=== PATIENT | male | born 1950 | race Caucasian/White ===

== ENCOUNTER 2022-04-30 11:30 | Outpatient (CLI) | payer MEDICARE, SELFPAY ==
--- NOTE | ~2022-04-30 | MR_ITS ---
EXAMINATION: MR lumbar spine wo/w con DATE: 04/30/2022 12:17 INDICATION: Low back pain. Bilateral leg pain. Lumbar stenosis. TECHNIQUE: Magnetic resonance imaging (MRI) of the lumbar spine was performed without and with 19 mL MultiHance intravenous contrast. COMPARISON: None FINDINGS: There is 8 degrees dextrocurvature of thoracolumbar spine. There is 3 mm anterolisthesis of L3 on L4 an 8 mm anterolisthesis of L4 on L5. There are Schmorl's nodes at T10-T11 and T11-T12. Ther e is mildly decreased disc height at L2-L3, L3-L4, and L4-L5. There is mildly decreased disc height a t L5-S1 with interbody fusion. There is ligamentum flavum hypertrophy at the disc levels at L1-L2 and L2-L3. The distal spinal cord signal intensity is normal. The conus medullaris is at L2. The followi ng disc levels are specifically discussed: L1-L2: The disc does not extend beyond the endplate margin. There is severe right and moderate left f acet joint osteoarthritis. There is a 5 mm synovial cyst on the right. There is no neural foraminal s tenosis. There is no central canal stenosis at the midline. There is mild stenosis of right lateral r ecess. L2-L3: The disc is bulging and has an annular fissure. There is severe bilateral facet joint osteoart hritis. There is moderate right and mild left neural foraminal stenosis. There is severe central ernesto l stenosis. There is epidural enhancement, consistent with inflammation. L3-L4: The disc is bulging. There is severe bilateral facet joint osteoarthritis. There is mild bilat eral neural foraminal stenosis. There is mild central canal stenosis with posterior decompression. L4-L5: The disc is bulging and has an annular fissure. There is severe bilateral facet joint osteoart hritis. There is moderate bilateral neural foraminal stenosis. There is moderate central canal stenos is with posterior decompression. L5-S1: The disc does not extend beyond the endplate margin. There is severe bilateral facet joint ost eoarthritis. There is moderate bilateral neural foraminal stenosis. There is no central canal stenosi s. IMPRESSION: 1. Severe lumbar spondylosis including severe central canal stenosis at L2-L3 with epidural enhanceme nt suggesting inflammation. Reviewed, dictated and finalized at location A. ADVISOR IMPRESSION: 1. Severe lumbar spondylosis including severe central canal stenosis at L2-L3 w ith epidural enhancement suggesting inflammation.
== END 2022-04-30 11:31 ==
PROVIDERS: PCP Family Medicine; Visit Provider Nurse Practitioner Adult Health
DX: M48.061 Spinal stenosis, lumbar region without neurogenic claudication (principal); M47.896 Other spondylosis, lumbar region
CPT/HCPCS: 72158; A9577

== ENCOUNTER → 2022-06-14 16:04 | Outpatient (CLI) | payer MEDICARE, SELFPAY ==
--- NOTE | ~2022-06-14 | XR_ITS ---
EXAMINATION: XR cervical spine min 6V DATE: 06/14/2022 16:54 INDICATION: Cervical myelopathy. TECHNIQUE: 5 views of cervical spine including flexion and extension views were obtained. COMPARISON: None. FINDINGS: There is 2 mm retrolisthesis of C3 on C4 in extension that reduces with flexion. There is i nterbody fusion from C4 to C7 with anterior plate and screws from C4 to C6. There is mild chronic ant erior wedging of C3 vertebral body. There is severely decreased disc height at C3-C4. C7-T1 is poorly visualized. Central spinal canal is developmentally small from C4 to C7. There is multilevel mild fa cet joint hypertrophy. There is mild central canal stenosis at C3-C4, C4-C5, C5-C6, and C6-C7. No pre vertebral soft tissue swelling. IMPRESSION: 1. Severe cervical spondylosis. 2. Anterior fusion from C4 to C7. Reviewed, dictated and finalized at location A.
--- NOTE | ~2022-06-14 | MR_ITS ---
EXAMINATION: MR cervical spine wo con DATE: 06/14/2022 16:45 INDICATION: Cervical myelopathy. Neck pain. Left arm tingling. TECHNIQUE: Magnetic resonance imaging (MRI) of the cervical spine was performed without intravenous c ontrast. COMPARISON: Cervical spine radiographs 06/14/2022 FINDINGS: There is 6 degrees levocurvature of cervicothoracic spine. There is 3 mm retrolisthesis of C3 on C4 and 5 mm anterolisthesis of C7 on T1. There is mild chronic anterior wedging of C3 vertebral body. There are changes of anterior fusion procedure from C4 to C7 with healed interbody bone grafts . There is an anterior plate with screws from C4 to C6. There is severely decreased disc height at C3 -C4 and C7-T1. There is volume loss of the spinal cord. There is increased T2-weighted signal intensi ty in the spinal cord from C4 to C7 and at T1-T2, consistent with myelomalacia. The following disc le vels are specifically discussed: C2-C3: There is a central extrusion. There is moderate bilateral uncovertebral joint osteoarthritis. There is severe bilateral facet joint osteoarthritis. There is mild bilateral neural foraminal stenos is. There is no central canal stenosis. C3-C4: The disc is bulging with superimposed central extrusion. There is severe bilateral uncovertebr al joint osteoarthritis. There is severe bilateral facet joint osteoarthritis. There is moderate righ t and severe left neural foraminal stenosis. There is moderate central canal stenosis with ventral an d dorsal indentation of the spinal cord. C4-C5: There is moderate bilateral uncovertebral joint hypertrophy. There is mild bilateral facet harlan nt hypertrophy. There is mild bilateral neural foraminal stenosis. There is mild central canal stenos is. C5-C6: There is severe bilateral uncovertebral joint hypertrophy. There is mild bilateral facet joint osteoarthritis. There is mild right and moderate left neural foraminal stenosis. There is no central canal stenosis. C6-C7: There is severe bilateral uncovertebral joint hypertrophy. There is moderate bilateral facet j oint osteoarthritis. There is moderate bilateral neural foraminal stenosis. There is mild central can al stenosis. C7-T1: The disc is bulging and has an annular fissure. There is severe bilateral uncovertebral joint osteoarthritis. There is severe bilateral facet joint osteoarthritis. There is moderate bilateral gilbert ral foraminal stenosis. There is mild central canal stenosis. T1:T2: There is a central extrusion. There is severe bilateral facet joint osteoarthritis. There is m ild bilateral neural foraminal stenosis. There is mild central canal stenosis with ventral indentatio n of the spinal cord and increased signal in the cord. IMPRESSION: 1. Severe cervical spondylosis. 2. Anterior fusion procedure from C4 to C7. 3. Cervical myelomalacia. 4. Spondylosis at T1-T2 with myelomalacia. Reviewed, dictated and finalized at location A.
== END ==
PROVIDERS: PCP Family Medicine; Visit Provider Neurological Surgery
DX: G95.9 Disease of spinal cord, unspecified (principal); M47.892 Other spondylosis, cervical region; Z98.1 Arthrodesis status
CPT/HCPCS: 72052; 72141

== ENCOUNTER → 2022-07-09 09:34 | Outpatient (CLI) | payer MEDICARE, SELFPAY ==
--- NOTE | ~2022-07-09 | CT_ITS ---
Noncontrast CT scan of the lumbar spine CLINICAL HISTORY: Lumbar stenosis TECHNIQUE: Axial noncontrast imaging of the lumbar spine was performed. Sagittal and coronal reformat shelley images were constructed. Dose reduction technique was used on this scan by utilizing automated ex posure control and iterative reconstruction technique. The dose-length product (DLP) was 897.78 mGy-c m. Findings: No fracture identified. 3 mm anterolisthesis of L4 over L5 present. At L1-L2, there is moderate facet joint hypertrophy. No definite disc bulge or herniation. No definit e canal stenosis. There is probable mild bilateral neural foraminal narrowing. At L2-L3, there is disc bulge and superior facet arthropathy, with probable moderate central canal st enosis. There is moderate right neural foraminal narrowing and mild left neural foraminal narrowing. At L3-L4, disc bulge and severe facet arthropathy are present, with probable mild to moderate central canal stenosis. There is moderate right neural foraminal narrowing and mild left neural foraminal na rrowing. At L4-L5, disc bulge and severe facet arthropathy result in severe spinal canal stenosis/thecal sac c ompression. There is severe bilateral neural foraminal narrowing. At L5-S1, probable minimal disc bulge present. There is severe facet arthropathy. No kristopher spinal can al stenosis. There is severe bilateral neural foraminal compromise, left worse than right. Paravertebral soft tissues are unremarkable. IMPRESSION: 3 mm anterolisthesis of L4 over L5. Severe degenerative spondylosis throughout the lumbar spine, as detailed above. There is multilevel s pj canal stenosis/thecal sac compression and multilevel neural foraminal narrowing. Findings are w orst at L4-L5. Reviewed, dictated and finalized at location M. IMPRESSION: 3 mm anterolisthesis of L4 over L5. Severe degenerative spondylosis throughout the lumbar spine, as detailed above. There is multilevel spinal canal stenosis/thecal sac compression and multileve l neural foraminal narrowing. Findings are worst at L4-L5.
== END ==
PROVIDERS: PCP Family Medicine; Visit Provider Neurological Surgery
DX: M48.061 Spinal stenosis, lumbar region without neurogenic claudication (principal); M47.896 Other spondylosis, lumbar region
CPT/HCPCS: 72131

== ENCOUNTER 2024-01-09 07:29 | Outpatient (CLI) | payer MEDICARE, SELFPAY ==
--- NOTE | ~2024-01-09 | US_ITS ---
Left lumbar abdominal area ULTRASOUND Ordering provider: AUSTIN Malik History: . R19.00 - Intra-abdominal and pelvic swelling, mass and jsoe... . Comparison: None. FINDINGS/impression: No definite abnormality seen due to shadowing in the area. If still concerned CT is advised. Reviewed, dictated and finalized at location A.
== END 2024-01-09 07:30 | disposition home or self-care (01) ==
PROVIDERS: PCP Family Medicine; Visit Provider Nurse Practitioner Family
DX: R19.00 Intra-abdominal and pelvic swelling, mass and lump, unspecified site (principal)
CPT/HCPCS: 76705

== ENCOUNTER 2024-05-21 13:55 | Outpatient (CLI) | payer MEDICARE, SELFPAY | END 2024-05-21 13:56 | disposition home or self-care (01) | LOC: MICIMG 13:57 | PROVIDERS: PCP Neurological Surgery; Visit Provider Neurological Surgery | DX: M43.06 Spondylolysis, lumbar region (principal); S32.021A Stable burst fracture of second lumbar vertebra, initial encounter for closed fracture; M41.86 Other forms of scoliosis, lumbar region; Z98.1 Arthrodesis status; X58.XXXA Exposure to other specified factors, initial encounter | CPT/HCPCS: 72131 ==

== ENCOUNTER 2024-05-24 12:33 | Outpatient (CLI) | payer MEDICARE, SELFPAY ==
--- NOTE | ~2024-05-24 | MR_ITS ---
EXAMINATION: MR lumbar spine wo con DATE: 05/24/2024 13:34 INDICATION: Low back pain. TECHNIQUE: Magnetic resonance imaging (MRI) of the lumbar spine was performed without intravenous con trast. COMPARISON: Lumbar spine MRI 04/30/2022 FINDINGS: There is 7 degrees levocurvature of lumbar spine. There is 3 mm anterolisthesis of L2 on L3 and L3 and L4 and 7 mm anterolisthesis of L4 on L5. There is a chronic burst fracture of L2 with 2/5 loss of height. There are changes of anterior fusion procedure at L2-L3 and L5-S1 with interbody dev ices. There is interbody fusion at L5-S1. There are changes of posterior fusion procedure from T10 to L5 with pedicle screws. There is moderately decreased disc height at L1-L2. The distal spinal cord s ignal intensity is normal. The conus medullaris is at T12-L1. The following disc levels are specifica lly discussed: L1-L2: The disc does not extend beyond the endplate margin. There is no facet joint hypertrophy. Ther e is mild bilateral neural foraminal stenosis. There is mild central canal stenosis. L2-L3: There is no facet joint hypertrophy. There is mild right neural foraminal stenosis with editorial intern ior decompression. There is no central canal stenosis. There is posterior decompression. L3-L4: The disc is bulging. There is moderate bilateral facet joint hypertrophy. There is mild bilate ral neural foraminal stenosis. There is mild central canal stenosis. There is posterior decompression . L4-L5: The disc does not extend beyond the endplate margin. There is no facet joint hypertrophy. Ther e is mild bilateral neural foraminal stenosis. There is no central canal stenosis. There is posterior decompression. L5-S1: The disc is bulging. There is severe bilateral facet joint hypertrophy. There is moderate bila teral neural foraminal stenosis. There is no central canal stenosis. IMPRESSION: 1. Moderate lumbar spondylosis. 2. Anterior fusion procedures at L2-L3 and L4-L5. 3. Posterior fusion procedure from T10 to L5. Reviewed, dictated and finalized at location A. RVATIONS SALES AGENT
--- NOTE | ~2024-05-24 | MR_ITS ---
Procedure: MR thoracic spine wo con Ordering provider: Albert Mcmahon MD History: . Low back pain . Comparison: None. Technique: MRI thoracic spine without contrast. FINDINGS: SPINAL CORD: Focal area of myelomalacia is seen in the lower cervical cord. Possibility of syringomye lore is marked excluded in the lower cervical area VERTEBRAL BODIES: Normal height and alignment. No compression fracture. Normal marrow signal. Postope rative changes at the level of T2-T3 and T11-T12. DISK SPACES: Severe narrowing of the disc T7-T8. STENOSIS: Central Disc protrusion at the level of T2-T3 with mild stenosis. Slight thickening of the cord is noted. Myelomalacia cannot be excluded. Diffuse disc bulge at the level of T7-T8 PARASPINOUS SOFT TISSUES: Normal. IMPRESSION: No acute osseous abnormality. Central Disc protrusion at the level of T2 and T3 with mild stenosis. Flattening of the cord is seen in the area. Myelomalacia cannot be excluded. Diffuse disc bulge at the level of T7-T8 with no significant stenosis or narrowing of the foramina. Reviewed, dictated and finalized at location A. DROPPER ASSEMBLER IMPRESSION: No acute osseous abnormality. Central Disc protrusion at the level of T2 and T3 with mild stenosis. Flattenin g of the cord is seen in the area. Myelomalacia cannot be excluded. Diffuse disc bulge at the level of T7-T8 with no significant stenosis or narrow ing of the foramina.
== END 2024-05-24 12:34 | disposition home or self-care (01) ==
PROVIDERS: PCP Neurological Surgery; Visit Provider Neurological Surgery
DX: M43.06 Spondylolysis, lumbar region (principal); M48.04 Spinal stenosis, thoracic region; M51.24 Other intervertebral disc displacement, thoracic region; M51.34 Other intervertebral disc degeneration, thoracic region; Z98.1 Arthrodesis status
CPT/HCPCS: 72146; 72148

== ENCOUNTER 2024-06-06 00:59 | Day surgery (SDC) | payer MEDICARE, SELFPAY ==
[2024-02-06 12:02] VITALS: BMI 25.7
[2024-05-31 15:02] VITALS: BMI 26.6
--- OUTSIDE RECORDS SUMMARY | 2024-06-06 01:04 | XMS_ITS | Encounter Summary ---
Author Organization [facility] Address [address] [place] [id number] Care Team Providers Care Electronic Industrial Controls Mechanic Name Role Phone Jose Zazueta MD Unavailable [phone] Lucas Rivers MD Primary Care Provider [phone] Encounter Details Date Type Department Care Team (Late st Contact Info) Description 04/26/2022 [employer] Message Enc [facility] Medical Group Family & Internal Medicine [facility] [address] [place] [address] [place] [address] [place] [address] Medication Social History Tobacco Use Types Packs/Day Years Used Date Smoking Tobacco: Never Smokeless Tobacco: Never Alcohol Use Standard Drinks/Week Comments Not Currently 0 (1 standard drink = 0.6 oz pur e alcohol) social- beer PHQ-2 Answer Date Recorded PHQ-2 Score - If the patient scores above 3, please move on to questions 3-9 0 06/15/2021 Sex and Gender Information Value Date Recorded Sex Assigned at Male 05/07/2024 1:57 PM DEVELOPMENT TECHNOLOGIST Legal Sex Male 7:06 PM CDT Gender Identity Not on file Sexual Orientation Not on file 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 No / Unsure 04/23/2022 10:22 AM DEVELOPMENT TECHNOLOGIST documented as of this encounter Plan of Treatment Upcoming Encounters Date Type Department Care Team (Late st Contact Info) Description 06/08/2024 7:[address] [facility] [address] [place] [address] [place] [address] [place] [address] [place] [address] [place] [address] 06/12/2024 11:00 AM CDT Appointment [facility] [address] [place] [address] [place] [address] [place] [address] Albert Mcmahon MD [address] [address] 06/19/2024 10:[address] [facility] [address] [place] [address] [place] [address] [place] [address] Albert Mcmahon MD [address] [address] 06/21/2024 9:30 AM CDT Appointment [facility] [address] [place] [address] [place] [address] [place] [address] Albert Mcmahon MD [address] [address] 06/25/2024 9:45 AM CDT Appointment [facility] [address] [place] [address] [place] [address] [place] [address] Albert Mcmahon MD [address] [address] 06/28/2024 9:45 AM CDT Appointment [facility] [address] [place] [address] [place] [address] [place] [address] Albert Mcmahon MD [address] [address] 07/02/2024 9:30 AM CDT Appointment [facility] [address] [place] [address] [place] [address] [place] [address] Albert Mcmahon MD [address] [address] 07/05/2024 11:15 AM CDT Appointment [facility] [address] [place] [address] [place] [address] [place] [address] Albert Mcmahon MD 3 [facility] [address] [place] [address] 07/09/2024 11:15 AM CDT Appointment [facility] [address] [place] [address] [place] [address] [place], [place] [id number] Albert Mcmahon MD 3 [facility] [address] [place] [address] documented as of this encounter Visit Diagnoses Not on filedocumented in this encounter Additional Health Concerns Assessment Noted Time PHQ-9 Depression Total Score: 0 06/16/19 7:14 AM CDT documented as of this encounter Care Teams Electronic Industrial Controls Mechanic Relationship Specialty [place] [address] [place] [address] PCP - General FAMILY PRACTICE 05/04/21 Jose Zazueta MD Three [facility]. [facility] [address] [place] [address] [place] Core Winding Operator CARDIOVASCULAR DISEASE 05/10/17 documented as of this encounter
--- OUTSIDE RECORDS SUMMARY | 2024-06-06 01:04 | XMS_ITS | Encounter Summary ---
Author Organization [facility] Address [address] [place] [address] Care Team Providers Care Knitting Machine Mechanic Name Role Phone Jose Zazueta MD Unavailable [phone] Lucas Rivers MD Primary Care Provider [phone] Encounter Details Date Type Department Care Team (Late st Contact Info) Description 01/15/2022 [employer] Message Enc [facility] Medical Group Family & Internal Medicine [facility] [address] [place] [address] [place] [address] [place] [address] Flu vaccinations Social History Tobacco Use Types Packs/Day Years [...] Sex Assigned at Male 05/07/2024 1:57 PM HARDBOARD PANEL PRINTER Legal Sex Male 7:06 PM CDT Gender Identity Not on file Sexual Orientation Not on file 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 No / Unsure 01/18/2022 10:47 AM CDT documented as of this encounter Plan of Treatment Upcoming Encounters Date Type Department Care Team (Late st Contact Info) Description 06/08/2024 7:[address] [facility] [address] [place] [address] [place] [address] [place] [address] [place] [address] [place] [address] 06/12/2024 11:00 AM CDT Appointment [facility] [address] [place] [address] [place] [address] [place] [address] Albert Mcmahon MD [address] [address] 06/19/2024 10:[address] [facility] [address] [place] [address] [place] [address] [place] [address] Albert Mcmahon MD [address] [address] 06/21/2024 9:30 AM CDT Appointment [facility] [address] [place] [address] [place] [address] [place] [address] Albert Mcmahon MD [address] [address] 06/25/2024 9:45 AM CDT Appointment [facility] [address] [place] [address] [place] [address] [place] [address] Albert Mcmahon MD [address] [address] 06/28/2024 9:45 AM CDT Appointment [facility] [address] [place] [address] [place] [address] [place] [address] Albert Mcmahon MD [address] [address] 07/02/2024 9:30 AM CDT Appointment [facility] [address] [place] [address] [place] [address] [place] [address] Albert Mcmahon MD [address] [address] 07/05/2024 11:15 AM CDT Appointment [facility] [address] [place] [address] [place] [address] [place] [address] Albert Mcmahon MD 3 [facility] [address] [place] [address] 07/09/2024 11:15 AM CDT Appointment [facility] [address] [place] [address] [place] [address] [place], [place] [id number] Albert Mcmahon MD 3 [facility] [address] [place] [address] documented as of this encounter Visit Diagnoses Not on filedocumented in this encounter Additional Health Concerns Assessment Noted Time PHQ-9 Depression Total Score: 0 06/16/19 22 7:14 AM CDT documented as of this encounter Care Teams Knitting Machine Mechanic Relationship Specialty [place] [address] [place] [address] PCP - General FAMILY PRACTICE 05/04/21 Jose Zazueta MD Three [facility]. [facility] [address] [place] [address] [place] Computer Help Desk Representative CARDIOVASCULAR DISEASE 05/10/17 documented as of this encounter
--- OUTSIDE RECORDS SUMMARY | 2024-06-06 01:04 | XMS_ITS | Encounter Summary ---
Author Organization [facility] Address [address] [place] [address] Care Team Providers Care Hosted Services Analyst Name Role Phone Jose Zazueta MD Unavailable [phone] Lucas Rivers MD Primary Care Provider [phone] Encounter Details Date Type Department Care Team (Late st Contact Info) Description 01/24/2024 MyChart Message Enc [facility] Medical Group Family & Internal Medicine [facility] [address] [place] [address] [place] [address] [place] [address] Test results for iron Social History Tobacco Use Types Packs/Day Years Used Date Smoking Tobacco: Never Smokeless Tobacco: Never Alcohol Use Standard Drinks/Week Comments Not Currently 0 (1 standard drink = 0.6 oz pur e alcohol) social- beer PHQ-2 Answer Date Recorded Patient Health Questionnaire-2 Score 1 12/15/2023 Sex and Gender Information Value Date Recorded Sex Assigned at Male 05/07/2024 1:57 PM HAUNTED HISTORY TOUR GUIDE Legal Sex Male 7:06 PM CDT Gender Identity Not on file Sexual Orientation Not on file Occupation Industry Job Start Date Job End Date 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 Not on file Not on file Not on file documented as of this encounter Plan of Treatment Upcoming Encounters Date Type Department Care Team (Late st Contact Info) Description 06/08/2024 7:00 AM CDT Appointment [facility] [address] [place] [address] [place] [address] [place] [address] [place] [address] [place] [address] 06/12/2024 11:00 AM CDT Appointment [facility] [address] [place] [address] [place] [address] [place] [address] Albert Mcmahon MD [address] [address] 06/19/2024 10:15 AM CDT Appointment [facility] [address] [place] [address] [place] [address] [place] [address] Albert Mcmahon MD [address] [address] 06/21/2024 9:30 AM CDT Appointment [facility] [address] [place] [address] [place] [address] [place] [address] Albert Mcmahon MD [address] [place] [address] 06/25/2024 9:45 AM CDT Appointment [facility] [address] [place] [address] [place] [address] [place] [address] Albert Mcmahon MD [address] [address] 06/28/2024 9:45 AM CDT Appointment [facility] [address] [place] [address] [place] [address] [place] [address] Albert Mcmahon MD [address] [address] 07/02/2024 9:30 AM CDT Appointment [facility] [address] [place] [address] [place] [address] [place] [address] Albert Mcmahon MD [address] [address] 07/05/2024 11:15 AM CDT Appointment [facility] [address] [place] [address] [place] [address] [place] [address] Albert Mcmahon MD 3 [facility] [address] [place] [address] 07/09/2024 11:15 AM CDT Appointment [facility] [address] [place] [address] [place] [address] [place] [address] Albert Mcmahon MD [address] [place] [address] documented as of this encounter Visit Diagnoses Not on filedocumented in this encounter Additional Health Concerns Assessment Noted Time PHQ-9 Depression Total Score: 0 06/16/19 7:14 AM CDT documented as of this encounter Care Teams Hosted Services Analyst Relationship Specialty [place] [address] [place] [address] PCP - General FAMILY PRACTICE 05/04/21 Jose Zazueta MD Three [facility]. [facility] [address] [place] [address] [place] Intern CARDIOVASCULAR DISEASE 05/10/17 documented as of this encounter
--- OUTSIDE RECORDS SUMMARY | 2024-06-06 01:04 | XMS_ITS | Encounter Summary ---
Author Organization [facility] Address [address] [place] [address] Care Team Providers Care Auger Supervisor Name Role Phone Jose Zazueta MD Unavailable [phone] Lucas Rivers MD Primary Care Provider [phone] Encounter Details Date Type Department Care Team (Late st Contact Info) Description 07/09/2022 MyChart Message Enc [facility] Medical Group Family & Internal Medicine [facility] [address] [place] [address] [place] [id number] [place] [address] EKG needed Social History Tobacco Use Types Packs/Day Years [...] Sex Assigned at Male 05/07/2024 1:57 PM SILO WORKER Legal Sex Male 7:06 PM CDT Gender Identity Not on file Sexual Orientation Not on file Occupation Industry Job Start Date Job End Date suarez Not on file Not on file Not on file documented as of this encounter Plan of Treatment Upcoming Encounters Date Type Department Care Team (Late st Contact Info) Description 06/08/2024 7:00 AM CDT Appointment [facility] Outpatient Rehab [address] [place] [address] [place] [address] [place] [address] [place] [address] [place] [address] 06/12/2024 11:00 AM CDT Appointment [facility] Outpatient Rehab [address] [place] [address] [place] [address] [place] [address] Albert Mcmahon MD [address] [address] 06/19/2024 10:15 AM CDT Appointment [facility] Outpatient Rehab [address] [place] [address] [place] [address] [place] [address] Albert Mcmahon MD [address] [address] 06/21/2024 9:30 AM CDT Appointment [facility] Outpatient Rehab [address] [place] [address] [place] [address] [place] [address] Albert Mcmahon MD [address] [address] 06/25/2024 9:45 AM CDT Appointment [facility] Outpatient Rehab [address] [place] [address] [place] [address] [place] [address] Albert Mcmahon MD [address] [address] 06/28/2024 9:45 AM CDT Appointment [facility]patient [facility]hab [address] [place] [address] [place] [address] [place] [address] Albert Mcmahon MD [address] [address] 07/02/2024 9:30 AM CDT Appointment [facility] Outpatient Rehab [address] [place] [address] [place] [address] [place] [address] Albert Mcmahon MD [address] [address] 07/05/2024 11:15 AM CDT Appointment [facility] Outpatient Rehab [address] [place] [address] [place] [address] [place] [address] Albert Mcmahon MD 3 [facility] 3900 [place] [address] 07/09/2024 11:15 AM CDT Appointment [facility] Outpatient Rehab [address] [place] [address] [place] [address] [place] [address] Albert Mcmahon MD 3 [facility] 3900 [place], [place] [address] documented as of this encounter Visit Diagnoses Not on filedocumented in this encounter Additional Health Concerns Assessment Noted Time PHQ-9 Depression Total Score: 0 06/16/19 7:14 AM CDT documented as of this encounter Care Teams Auger Supervisor Relationship Specialty [place] [address] [place] [address] PCP - General FAMILY PRACTICE 05/04/21 Jose Zazueta MD Three [facility]. JEAN [address] [place] [address] Veneta Pipe Line Maintenance Supervisor CARDIOVASCULAR DISEASE 05/10/17 documented as of this encounter
--- OUTSIDE RECORDS SUMMARY | 2024-06-06 01:04 | XMS_ITS | Encounter Summary ---
Author Organization [facility] Address [address] [place] [address] Care Team Providers Care Neon Sign Worker Name Role Phone Jose Zazueta MD Unavailable [phone] Lucas Rivers MD Primary Care Provider [phone] Encounter Details Date Type Department Care Team (Late st Contact Info) Description 07/01/2023 Epuramatt Message Enc [facility] Medical Group Multispecialty Care - [facility] 3 [facility], [address] [place] [phone] Cj Verdugo MD 3 [place], [place] [id number] MRI scheduled Social History Tobacco Use Types Packs/Day Years Used Date Smoking Tobacco: Never Smokeless Tobacco: Never Alcohol Use Standard Drinks/Week Comments Not Currently 0 (1 standard drink = 0.6 oz pur e alcohol) social- beer PHQ-2 Answer Date Recorded Patient Health Questionnaire-2 Score 0 09/09/2022 Sex and Gender Information Value Date Recorded Sex Assigned at Male 05/07/2024 1:[address] RADIO INSTALLER Legal Sex Male 7:06 PM CDT Gender Identity Not on file Sexual Orientation Not on file Occupation Industry Job Start Date Job End Date suarez Not on file Not on file Not on file documented as of this encounter Plan of Treatment Upcoming Encounters Date Type Department Care Team (Late st Contact Info) Description 06/08/2024 7:00 AM CDT Appointment [facility] Outpatient Rehab [address] [place] [address] [place] [address] [place] [address] [place] [address] [place] [address] 06/12/2024 11:00 AM CDT Appointment [facility] Outpatient Rehab [address] [place] [address] [place] [address] [place] [address] Albert Mcmahon MD [address] [address] 06/19/2024 10:15 AM CDT Appointment [facility] [address] [place] [address] [place] [address] [place] [address] Albert Mcmahon MD [address] [address] 06/21/2024 9:30 AM CDT Appointment [facility] Outpatient Rehab [address] [place] [address] [place] [address] [place] [address] Albert Mcmahon MD [address] [address] 06/25/2024 9:45 AM CDT Appointment [facility] Outpatient Rehab [address] [place] [address] [place] [address] [place] [address] Albert Mcmahon MD [address] [address] 06/28/2024 9:45 AM CDT Appointment [facility] [address] [place] [address] [place] [address] [place] [address] Albert Mcmahon MD [address] [address] 07/02/2024 9:30 AM CDT Appointment [facility] Outpatient Rehab [address] [place] [address] [place] [address] [place] [address] Albert Mcmahon MD [address] [address] 07/05/2024 11:15 AM CDT Appointment [facility] Outpatient [facility] [address] [place] [address] [place] [address] [place] [address] Albert Mcmahon MD 3 [facility] 3900 [place] [address] 07/09/2024 11:15 AM CDT Appointment [facility] Outpatient Rehab [address] [place] [address] [place] [address] [place] [address] Albert Mcmahon MD 3 [facility] 3900 [place] [address] documented as of this encounter Visit Diagnoses Not on filedocumented in this encounter Additional Health Concerns Assessment Noted Time PHQ-9 Depression Total Score: 0 06/16/19 22 7:14 AM CDT documented as of this encounter Care Teams Neon Sign Worker Relationship Specialty [place] [address] [place] [address] PCP - General FAMILY PRACTICE 05/04/21 Jose Zazueta MD Three [facility]. [facility] [address] [place] [address] Robin Machine Wedger CARDIOVASCULAR DISEASE 05/10/17 documented as of this encounter
--- OUTSIDE RECORDS SUMMARY | 2024-06-06 01:04 | XMS_ITS | Encounter Summary ---
Author Organization [facility] Address [address] [place] [address] Care Team Providers Care Mutton Puncher Name Role Phone Jose Zazueta MD Unavailable [phone] Lucas Rivers MD Primary Care Provider [phone] Encounter Details Date Type Department Care Team (Latest Contact Info) Description 06/02/2022 Scandidt Message Enc [facility] Medical Group Family & Internal Medicine [facility] [address] [place] [address] [place] [address] [place] [address] Refill for cyclobenzaprine 5 mg Social History Tobacco Use Types Packs/Day Years [...] Sex Assigned at Male 05/07/2024 1:57 PM MACHINE 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 Legal Sex Male 7:06 PM CDT Gender Identity Not on file Sexual Orientation Not on file Occupation Industry Job Start Date Job End Date suarez Not on file Not on file Not on file documented as of this encounter Plan of Treatment Upcoming Encounters Date Type Department Care Team (Late st Contact Info) Description 06/08/2024 7:00 AM CDT Appointment [facility] Outpatient Rehab [address] [place] [address] [place] [address] [place] [address] [place] [address] [place] [address] 06/12/2024 11:00 AM CDT Appointment [facility] Outpatient Rehab [address] [place] [address] [place] [address] [place] [address] Albert Mcmahon MD [address] [address] 06/19/2024 10:15 AM CDT Appointment [facility] Outpatient Rehab [address] [place] [address] [place] [address] [place] [address] Albert Mcmahon MD [address] [address] 06/21/2024 9:30 AM CDT Appointment [facility] Outpatient Rehab [address] [place] [address] [place] [address] [place] [address] Albert Mcmahon MD [address] [address] 06/25/2024 9:45 AM CDT Appointment [facility] Outpatient Rehab [address] [place] [address] [place] [address] [place] [address] Albert Mcmahon MD [address] [address] 06/28/2024 9:45 AM CDT Appointment [facility] Outpatient Rehab [address] [place] [address] [place] [address] [place] [address] Albert Mcmahon MD [address] [address] 07/02/2024 9:30 AM CDT Appointment [facility] Outpatient Rehab [address] [place] [address] [place] [address] [place] [address] Albert Mcmahon MD [address] [address] 07/05/2024 11:15 AM CDT Appointment [facility] Outpatient Rehab [address] [place] [address] [place] [address] [place], [place] [address] Albert Mcmahon MD [address] [facility] 3900 [place] [address] 07/09/2024 11:15 AM CDT Appointment [facility] Outpatient Rehab [address] [place] [address] [place] [address] [place] [address] Albert Mcmahon MD [address] [facility] 3900 [place], [place] [address] documented as of this encounter Visit Diagnoses Not on filedocumented in this encounter Additional Health Concerns Assessment Noted Time PHQ-9 Depression Total Score: 0 06/16/19 7:14 AM CDT documented as of this encounter Care Teams Mutton Puncher Relationship Specialty [place] [address] [place] [address] PCP - General FAMILY PRACTICE 05/04/21 Jose Zazueta MD Three [facility]. [facility] [address] [place] [address] Robin Barrel Header CARDIOVASCULAR DISEASE 05/10/17 documented as of this encounter
--- OUTSIDE RECORDS SUMMARY | 2024-06-06 01:04 | XMS_ITS | Encounter Summary ---
Author Organization [facility] Address [address] [place] [address] Care Team Providers Care Head Nurse Name Role Phone Jose Zazueta MD Unavailable [phone] Lucas Rivers MD Primary Care Provider [phone] Encounter Details Date Type Department Care Team (Late st Contact Info) Description 11/30/2023 MyChart Message Enc [facility] Medical Group Family & Internal Medicine [facility] [address] [place] [address] [place] [id number] [place] [address] referral to michaelle reina Social History Tobacco Use Types Packs/Day Years Used Date Smoking Tobacco: Never Smokeless Tobacco: Never Alcohol Use Standard Drinks/Week Comments Not Currently 0 (1 standard drink = 0.6 oz pur e alcohol) social- beer PHQ-2 Answer Date Recorded Patient Health Questionnaire-2 Score 0 09/09/2022 Sex and Gender Information Value Date Recorded Sex Assigned at Male 05/07/2024 1:57 PM HOTEL HOUSEKEEPER Legal Sex Male 7:06 PM CDT Gender Identity Not on file Sexual Orientation Not on file Occupation Industry Job Start Date Job End Date suarez Not on file Not on file Not on file documented as of this encounter Plan of Treatment Upcoming Encounters Date Type Department Care Team (Late st Contact Info) Description 06/08/2024 7:00 AM CDT Appointment [facility] [address] [place] [address] [place] [address] [place] [address] [place] [address] [place] [address] 06/12/2024 11:00 AM CDT Appointment [facility] Outpatient Rehab [address] [place] [address] [place] [address] [place] [address] Albert Mcmahon MD [address] [address] 06/19/2024 10:15 AM CDT Appointment [facility] Outpatient Rehab [address] [place] [address] [place] [address] [place] [address] Albert Mcmahon MD [address] [address] 06/21/2024 9:30 AM CDT Appointment [facility] Outpatient Rehab [address] [place] [address] [place] [address] [place] [address] Albert Mcmahon MD [address] [place] [address] 06/25/2024 9:45 AM CDT Appointment [facility] Outpatient Rehab [address] [place] [address] [place] [address] [place] [address] Albert Mcmahon MD [address] [address] 06/28/2024 9:45 AM CDT Appointment [facility] Outpatient Rehab [address] [place] [address] [place] [address] [place] [address] Albert Mcmahon MD [address] [address] 07/02/2024 9:30 AM CDT Appointment [facility] Outpatient Rehab [address] [place] [address] [place] [address] [place] [address] Albert Mcmahon MD [address] [address] 07/05/2024 11:15 AM CDT Appointment [facility] Outpatient Rehab [address] [place] [address] [place] [address] [place] [address] Albert Mcmahon MD 3 [facility] 3900 [place] [address] 07/09/2024 11:15 AM CDT Appointment [facility] Outpatient Rehab [address] [place] [address] [place] [address] [place] [address] Albert Mcmahon MD [address] [place] [address] documented as of this encounter Visit Diagnoses Not on filedocumented in this encounter Additional Health Concerns Assessment Noted Time PHQ-9 Depression Total Score: 0 06/16/19 7:14 AM CDT documented as of this encounter Care Teams Head Nurse Relationship Specialty [place] [address] [place] [address] PCP - General FAMILY PRACTICE 05/04/21 Jose Zazueta MD Three [facility]. [facility] [address] [place] [address] Sturgis Chief Learning Officer CARDIOVASCULAR DISEASE 05/10/17 documented as of this encounter
--- OUTSIDE RECORDS SUMMARY | 2024-06-06 01:04 | XMS_ITS | Encounter Summary ---
Author Organization [facility] Address [facility] [place] [address] Care Team Providers Care Mergers And Acquisitions Attorney Name Role Phone Salo Kelly MD Primary Care Provider [phone] Jose Zazueta MD Unavailable [phone] Lucas Rivers MD Primary Care Provider [phone] Encounter Details Date Type Department Care Team (Late st Contact Info) Description 02/09/2021 MyChart Message Enc [facility] Medical Group Family & Internal Medicine [facility] [address] [place] [address] Salo Kelly MD [address] [address] Eye doctor appts Social History Tobacco Use Types Packs/Day Years Used Date Smoking Tobacco: Never Smokeless Tobacco: Never Alcohol Use Standard Drinks/Week Comments Yes 0 (1 standard drink = 0.6 oz pur e alcohol) social- beer PHQ-2 Answer Date Recorded PHQ-2 Score - If the patient scores above 3, please move on to questions 3-9 0 10/17/2020 Sex and Gender Information Value Date Recorded Sex Assigned at Male 05/07/2024 1:57 PM MATTRESS WEAVER Legal Sex Male 7:06 PM CDT Gender Identity Not on file Sexual Orientation Not on file Occupation Industry Job Start Date Job End Date suarez Not on file Not on file Not on file COVID-19 Exposure Response Date Recorded In the last month, have you been in contact with someone who was confirmed or suspected to have Coronavirus / COVID-19? No / Unsure 01/28/2021 1:36 PM MATTRESS WEAVER documented as of this encounter Plan of Treatment Upcoming Encounters Date Type Department Care Team (Late st Contact Info) Description 06/08/2024 7:00 AM CDT Appointment [facility] Outpatient Rehab [address] [place] [address] [place] [address] [place] [address] [place] [address] [place] [address] 06/12/2024 11:00 AM CDT Appointment [facility] Outpatient Rehab [address] [place] [address] [place] [address] [place] [address] Albert Mcmahon MD [address] [address] 06/19/2024 10:15 AM CDT Appointment [facility] Outpatient Rehab [address] [place] [address] [place] [address] [place] [address] Albert Mcmahon MD [address] [address] 06/21/2024 9:30 AM CDT Appointment [facility] Outpatient Rehab [address] [place] [address] [place] [address] [place] [address] Albert Mcmahon MD [address] [address] 06/25/2024 9:45 AM CDT Appointment [facility] Outpatient Rehab [address] [place] [address] [place] [address] [place] [address] Albert Mcmahon MD [address] [address] 06/28/2024 9:45 AM CDT Appointment [facility] Outpatient Rehab [address] [place] [address] [place] [address] [place] [address] Albert Mcmahon MD [address] [address] 07/02/2024 9:30 AM CDT Appointment [facility] Outpatient Rehab [address] [place] [address] [place] [address] [place] [address] Albert Mcmahon MD [address] [address] 07/05/2024 11:15 AM CDT Appointment [facility] Outpatient Rehab [address] [place] [address] [place] [address] [place], [place] [address] Albert Mcmahon MD [address] [place] [address] 07/09/2024 11:15 AM CDT Appointment [facility] Outpatient Rehab [address] [place] [address] [place] [address] [place], [place] [address] Albert Mcmahon MD [address] [address] documented as of this encounter Visit Diagnoses Not on filedocumented in this encounter Additional Health Concerns Assessment Noted Time PHQ-9 Depression Total Score: 0 10/18/19 21 7:41 AM CDT documented as of this encounter Care Teams Mergers And Acquisitions Attorney Relationship Specialty Start Date End Date Salo Kelly MD PCP - General INTERNAL MEDICINE 05/10/17 05/03/21 [place] [address] [place] [address] PCP - General FAMILY PRACTICE 05/04/21 Jose Zazueta MD Three [facility]. [address] [address] Robin Bi Analyst CARDIOVASCULAR DISEASE 05/10/17 documented as of this encounter
--- OUTSIDE RECORDS SUMMARY | 2024-06-06 01:04 | XMS_ITS | Encounter Summary ---
Author Organization [facility] Address [address] [place] [address] Care Team Providers Care Counter Tacker Name Role Phone Jose Zazueta MD Unavailable [phone] Lucas Rivers MD Primary Care Provider [phone] Encounter Details Date Type Department Care Team (Latest Contact Info) Description 05/27/2023 Vettro Message Enc [facility] Medical Group Multispecialty Care - [facility] 3 [facility], [address] [place] [address] Cj Verdugo MD 3 [place], [place] [id number] EMG test reschedule Social History Tobacco Use Types Packs/Day Years Used Date Smoking Tobacco: Never Smokeless Tobacco: Never Alcohol Use Standard Drinks/Week Comments Not Currently 0 (1 standard drink = 0.6 oz pur e alcohol) social- beer PHQ-2 Answer Date Recorded Patient Health Questionnaire-2 Score 0 09/09/2022 Sex and Gender Information Value Date Recorded Sex Assigned at Male 05/07/2024 1:57 PM MACHINE PRECISION ETCHER Legal Sex Male 7:06 PM CDT Gender Identity Not on file Sexual Orientation Not on file Occupation Industry Job Start Date Job End Date suarez Not on file Not on file Not on file documented as of this encounter Progress Notes * Jessica Ivan RN - 05/30/2023 11:47 AM CDT Spoke with patients to schedule EMG. Patient scheduled for 06/01 at 2pm. documented in this encounter Plan of Treatment Upcoming Encounters Date Type Department Care Team (Late st Contact Info) Description 06/08/2024 7:00 AM CDT Appointment [facility] Outpatient Rehab [address] [place] [address] [place] [address] [place] [address] [place] [address] [place] [address] 06/12/2024 11:00 AM CDT Appointment [facility] Outpatient Rehab [address] [place] [address] [place] [address] [place] [address] Albert Mcmahon MD [address] [address] 06/19/2024 10:15 AM CDT Appointment [facility] Outpatient Rehab [address] [place] [address] [place] [address] [place] [address] Albert Mcmahon MD [address] [address] 06/21/2024 9:30 AM CDT Appointment [facility] Outpatient Rehab [address] [place] [address] [place] [address] [place] [address] Albert Mcmahon MD [address] [address] 06/25/2024 9:45 AM CDT Appointment [facility] Outpatient Rehab [address] [place] [address] [place] [address] [place] [address] Albert Mcmahon MD [address] [address] 06/28/2024 9:45 AM CDT Appointment [facility] Outpatient Rehab [address] [place] [address] [place] [address] [place] [address] Albert Mcmahon MD [address] [address] 07/02/2024 9:30 AM CDT Appointment [facility]patient Rehab [address] [place] [address] [place] [address] [place] [address] Albert Mcmahon MD 3 [facility] 3900 [place] [address] 07/05/2024 11:15 AM CDT Appointment [facility] Outpatient Rehab [address] [place] [address] [place] [address] [place] [address] Albert Mcmahon MD 3 [facility] [address] [place] [address] 07/09/2024 11:15 AM CDT Appointment [facility]patient Rehab [address] [place] [address] [place] [address] [place] [address] Albert Mcmahon MD 3 [facility] [address] [place] [address] documented as of this encounter Visit Diagnoses Not on filedocumented in this encounter Additional Health Concerns Assessment Noted Time PHQ-9 Depression Total Score: 0 06/16/19 7:14 AM CDT documented as of this encounter Care Teams Counter Tacker Relationship Specialty [place] [address] [place] [address] PCP - General FAMILY PRACTICE 05/04/21 Jose Zazueta MD Three [facility]. [facility] [address] [place] [address] Robin Account Processor CARDIOVASCULAR DISEASE 05/10/17 documented as of this encounter
--- OUTSIDE RECORDS SUMMARY | 2024-06-06 01:04 | XMS_ITS | Encounter Summary ---
Author Organization [facility] Address [address] [place] [address] Care Team Providers Care Clinical Instructor Name Role Phone Jose Zazueta MD Unavailable [phone] Lucas Rivers MD Primary Care Provider [phone] Encounter Details Date Type Department Care Team (Late st Contact Info) Description 08/31/2023 MyChart Message Enc [facility] Medical Group Family & Internal Medicine [facility] [address] [place] [address] [place] [address] [place] [address] ?? about medications on hospital discharge papers Social History Tobacco Use Types Packs/Day Years Used Date Smoking Tobacco: Never Smokeless Tobacco: Never Alcohol Use Standard Drinks/Week Comments Not Currently 0 (1 standard drink = 0.6 oz pur e alcohol) social- beer PHQ-2 Answer Date Recorded Patient Health Questionnaire-2 Score 0 09/09/2022 Sex and Gender Information Value Date Recorded Sex Assigned at Male 05/07/2024 1:57 PM FIBERGLASS BOAT FINISHER Legal Sex Male 7:06 PM CDT Gender Identity Not on file Sexual Orientation Not on file Occupation Industry Job Start Date Job End Date suarez Not on file Not on file Not on file documented as of this encounter Plan of Treatment Upcoming Encounters Date Type Department Care Team (Late st Contact Info) Description 06/08/2024 7:00 AM CDT Appointment [facility] [address] [place] [address] [place] [address] [place] [address] [place] [address] [place] [address] 06/12/2024 11:00 AM CDT Appointment [facility] [address] [place] [address] [place] [address] [place] [address] Albert Mcmahon MD [address] [address] 06/19/2024 10:15 AM CDT Appointment [facility] [address] [place] [address] [place] [address] [place] [address] Albert Mcmahon MD [address] [address] 06/21/2024 9:30 AM CDT Appointment [facility] [address] [place] [address] [place] [address] [place] [address] Albert Mcmahon MD [address] [address] 06/25/2024 9:45 AM CDT Appointment [facility] [address] [place] [address] [place] [address] [place] [address] Albert Mcmahon MD [address] [address] 06/28/2024 9:45 AM CDT Appointment [facility] [address] [place] [address] [place] [address] [place] [address] Albert Mcmahon MD [address] [address] 07/02/2024 9:30 AM CDT Appointment [facility] [address] [place] [address] [place] [address] [place] [address] Albert Mcmahon MD [address] [address] 07/05/2024 11:15 AM CDT Appointment [facility] [address] [place] [address] [place] [address] [place] [address] Albert Mcmahon MD [address] [place] [address] 07/09/2024 11:15 AM CDT Appointment [facility] [address] [place] [address] [place] [address] [place] [address] Albert Mcmahon MD [address] [address] documented as of this encounter Visit Diagnoses Not on filedocumented in this encounter Additional Health Concerns Assessment Noted Time PHQ-9 Depression Total Score: 0 06/16/19 7:14 AM CDT documented as of this encounter Care Teams Clinical Instructor Relationship Specialty [place] [address] [place] [address] PCP - General FAMILY PRACTICE 05/04/21 Jose Zazueta MD Three [facility] [address] [place] [address] [place] Estimator Lumber CARDIOVASCULAR DISEASE 05/10/17 documented as of this encounter
--- OUTSIDE RECORDS SUMMARY | 2024-06-06 01:04 | XMS_ITS | Encounter Summary ---
Author Organization [facility] Address [address] [place] [address] Care Team Providers Care Automobile Assembly Supervisor Name Role Phone Jose Zazueta MD Unavailable [phone] Lucas Rivers MD Primary Care Provider [phone] Encounter Details Date Type Department Care Team (Late st Contact Info) Description 12/19/2023 MyChart Message Enc [facility] Medical Group Family & Internal Medicine [facility] [address] [place] [address] [place] [address] [place] [address] Restless leg Social History Tobacco Use Types Packs/Day Years Used Date Smoking Tobacco: Never Smokeless Tobacco: Never Alcohol Use Standard Drinks/Week Comments Not Currently 0 (1 standard drink = 0.6 oz pur e alcohol) social- beer PHQ-2 Answer Date Recorded Patient Health Questionnaire-2 Score 1 12/15/2023 Sex and Gender Information Value Date Recorded Sex Assigned at Male 05/07/2024 1:57 PM DENTAL ASSISTANT INSTRUCTOR Legal Sex Male 7:06 PM CDT Gender Identity Not on file Sexual Orientation Not on file Occupation Industry Job Start Date Job End Date suarez Not on file Not on file Not on file documented as of this encounter Progress Notes * Yasmin Sánchez RN - 12/19/2023 2:11 PM CDT Printed for Dr kerry sheikh. documented in this encounter Plan of Treatment Upcoming Encounters Date Type Department Care Team (Late st Contact Info) Description 06/08/2024 7:[address] [facility] [address] [place] [address] [place] [address] [place] [address] [place] [address] [place] [address] 06/12/2024 11:00 AM CDT Appointment [facility] [address] [place] [address] [place] [address] [place] [address] Albert Mcmahon MD [address] [address] 06/19/2024 10:[address] [facility] [address] [place] [address] [place] [address] [place] [address] Albert Mcmahon MD [address] [address] 06/21/2024 9:30 AM CDT Appointment [facility] [address] [place] [address] [place] [address] [place] [address] Albert Mcmahon MD [address] [address] 06/25/2024 9:45 AM CDT Appointment [facility] [address] [place] [address] [place] [address] [place] [address] Albert Mcmahon MD [address] [address] 06/28/2024 9:45 AM CDT Appointment [facility] [address] [place] [address] [place] [address] [place] [address] Albert Mcmahon MD [address] [address] 07/02/2024 9:30 AM CDT Appointment [facility] [address] [place] [address] [place] [address] [place] [address] Albert Mcmahon MD [address] [address] 07/05/2024 11:15 AM CDT Appointment [facility] [address] [place] [address] [place] [address] [place] [address] Albert Mcmahon MD 3 [facility] [address] [place] [address] 07/09/2024 11:15 AM CDT Appointment [facility] [address] [place] [address] [place] [address] [place], [place] [address] Albert Mcmahon MD 3 [facility] [address]00 [place] [address] documented as of this encounter Visit Diagnoses Not on filedocumented in this encounter Additional Health Concerns Assessment Noted Time PHQ-9 Depression Total Score: 0 06/16/19 22 7:14 AM CDT documented as of this encounter Care Teams Automobile Assembly Supervisor Relationship Specialty [place] [address] [place] [address] PCP - General FAMILY PRACTICE 05/04/21 Jose Zazueta MD Three [facility]. [facility] [address] [place] [address] [place] Ground Crew Chief CARDIOVASCULAR DISEASE 05/10/17 documented as of this encounter
--- OUTSIDE RECORDS SUMMARY | 2024-06-06 01:04 | XMS_ITS | Encounter Summary ---
Author Organization [facility] Address [address] [place] [address] Care Team Providers Care Infertility Medical Assistant Name Role Phone Jose Zazueta MD Unavailable [phone] Lucas Rivers MD Primary Care Provider [phone] Encounter Details Date Type Department Care Team (Latest Contact Info) Description 07/25/2023 Moncait Message Enc [facility] Medical Group Multispecialty Care - [facility] 3 [facility], [address] [place] [address] Cj Verdugo MD 3 [place], [place] [id number] MRI scheduled for 08/09/23 Social History Tobacco Use Types Packs/Day Years Used Date Smoking Tobacco: Never Smokeless Tobacco: Never Alcohol Use Standard Drinks/Week Comments Not Currently 0 (1 standard drink = 0.6 oz pur e alcohol) social- beer PHQ-2 Answer Date Recorded Patient Health Questionnaire-2 Score 0 09/09/2022 Sex and Gender Information Value Date Recorded Sex Assigned at Male 05/07/2024 1:57 PM ART CONSERVATOR Legal Sex Male 7:06 PM CDT Gender Identity Not on file Sexual Orientation Not on file 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 [address] [place] [address] [place] [address] [place] [address] [place] [address] [place] [address] 06/12/2024 11:[address] [facility] [address] [place] [address] [place] [address] [place] [address] Albert Mcmahon MD [address] [address] 06/19/2024 10:[address] [facility] [address] [place] [address] [place] [address] [place] [address] Albert Mcmahon MD [address] [address] 06/21/2024 9:[address] [facility] [address] [place] [address] [place] [address] [place] [address] Albert Mcmahon MD [address] [address] 06/25/2024 9:45 AM CDT Appointment [facility] [address] [place] [address] [place] [address] [place] [address] Albert Mcmahon MD [address] [address] 06/28/2024 9:45 AM CDT Appointment [facility] [address] [place] [address] [place] [address] [place] [address] Albert Mcmahon MD [address] [address] 07/02/2024 9:30 AM CDT Appointment [facility] [address] [place] [address] [place] [address] [place] [address] Albert Mcmahon MD [address] [address] 07/05/2024 11:15 AM CDT Appointment [facility] [address] [place] [address] [place] [address] [place] [address] Albert Mcmahon MD 3 [facility] 3900 [place] [address] 07/09/2024 11:15 AM CDT Appointment [facility] [address] [place] [address] [place] [address] [place] [address] Albert Mcmahon MD 3 [facility] [address]00 [place] [address] documented as of this encounter Visit Diagnoses Not on filedocumented in this encounter Additional Health Concerns Assessment Noted Time PHQ-9 Depression Total Score: 0 06/16/19 7:14 AM CDT documented as of this encounter Care Teams Infertility Medical Assistant Relationship Specialty [place] [address] [place] [address] PCP - General FAMILY PRACTICE 05/04/21 Jose Zazueta MD Three [facility]. [facility] [address] [place] [address] [place] Drophammer Operator CARDIOVASCULAR DISEASE 05/10/17 documented as of this encounter
--- OUTSIDE RECORDS SUMMARY | 2024-06-06 01:04 | XMS_ITS | Encounter Summary ---
Author Organization [facility] Address [address] [place] [address] Care Team Providers Care Chemical Compounder Helper Name Role Phone Jose Zazueta MD Unavailable [phone] Lucas Rivers MD Primary Care Provider [phone] Encounter Details Date Type Department Care Team (Late st Contact Info) Description 11/02/2023 MyChart Message Enc [facility] Medical Group Family & Internal Medicine [facility] [address] [place] [address] [place] [address] [place] [address] Home Health Care Social History Tobacco Use Types Packs/Day Years Used Date Smoking Tobacco: Never Smokeless Tobacco: Never Alcohol Use Standard Drinks/Week Comments Not Currently 0 (1 standard drink = 0.6 oz pur e alcohol) social- beer PHQ-2 Answer Date Recorded Patient Health Questionnaire-2 Score 0 09/09/2022 Sex and Gender Information Value Date Recorded Sex Assigned at Male 05/07/2024 1:57 PM CAR BRACER Legal Sex Male 7:06 PM CDT Gender Identity Not on file Sexual Orientation Not on file Occupation Industry Job Start Date Job End Date suarez Not on file Not on file Not on file documented as of this encounter Plan of Treatment Upcoming Encounters Date Type Department Care Team (Late st Contact Info) Description 06/08/2024 7:00 AM CDT Appointment [facility] [address] [place] [address] [place] [address] [place] [address] [place] [address] [place] [address] 06/12/2024 11:00 AM CDT Appointment [facility] [address] [place] [address] [place] [address] [place] [address] Albert Mcmahon MD [address] [address] 06/19/2024 10:15 AM CDT Appointment [facility] [address] [place] [address] [place] [address] [place] [address] Albert Mcmahon MD [address] [address] 06/21/2024 9:30 AM CDT Appointment [facility] [address] [place] [address] [place] [address] [place] [address] Albert Mcmahon MD [address] [address] 06/25/2024 9:45 AM CDT Appointment [facility] [address] [place] [address] [place] [address] [place] [address] Albert Mcmahon MD [address] [address] 06/28/2024 9:45 AM CDT Appointment [facility] [address] [place] [address] [place] [address] [place] [address] Albert Mcmahon MD [address] [address] 07/02/2024 9:30 AM CDT Appointment [facility] [address] [place] [address] [place] [address] [place] [address] Albert Mcmahon MD [address] [address] 07/05/2024 11:15 AM CDT Appointment [facility] [address] [place] [address] [place] [address] [place] [address] Albert Mcmahon MD [address] [facility] 3900 [place] [address] 07/09/2024 11:15 AM CDT Appointment [facility] [address] [place] [address] [place] [address] [place] [address] Albert Mcmahon MD [address] [place] [address] documented as of this encounter Visit Diagnoses Not on filedocumented in this encounter Additional Health Concerns Assessment Noted Time PHQ-9 Depression Total Score: 0 06/16/19 7:14 AM CDT documented as of this encounter Care Teams Chemical Compounder Helper Relationship Specialty [place] [address] [place] [address] PCP - General FAMILY PRACTICE 05/04/21 Jose Zazueta MD Three [facility]. [facility] [address] [place] [address] [employer] Tower Climber CARDIOVASCULAR DISEASE 05/10/17 documented as of this encounter
--- OUTSIDE RECORDS SUMMARY | 2024-06-06 01:04 | XMS_ITS | Encounter Summary ---
Author Organization [facility] Address [address] [place] [address] Care Team Providers Care Scrap Yard Worker Name Role Phone Jose Zazueta MD Unavailable [phone] Lucas Rivers MD Primary Care Provider [phone] Encounter Details Date Type Department Care Team (Late st Contact Info) Description 10/04/2022 MyChart Message Enc [facility] Medical Group Family & Internal Medicine [facility] [address] [place] [address] [place] [id number] [place] [address] My lab tests this morning Social History Tobacco Use Types Packs/Day Years Used Date Smoking Tobacco: Never Smokeless Tobacco: Never Alcohol Use Standard Drinks/Week Comments Not Currently 0 (1 standard drink = 0.6 oz pur e alcohol) social- beer PHQ-2 Answer Date Recorded Patient Health Questionnaire-2 Score 0 09/09/2022 Sex and Gender Information Value Date Recorded Sex Assigned at Male 05/07/2024 1:57 PM SAND CASTER APPRENTICE Legal Sex Male 7:06 PM CDT Gender Identity Not on file Sexual Orientation Not on file Occupation Industry Job Start Date Job End Date suarez Not on file Not on file Not on file documented as of this encounter Plan of Treatment Upcoming Encounters Date Type Department Care Team (Late st Contact Info) Description 06/08/2024 7:00 AM CDT Appointment [facility] [address] [place] [address] [place] [address] [place] [address] [place] [address] [place] [address] 06/12/2024 11:00 AM CDT Appointment [facility]patient [facility] [address] [place] [address] [place] [address] [place] [address] Albert Mcmahon MD [address] [address] 06/19/2024 10:15 AM CDT Appointment [facility] [address] [place] [address] [place] [address] [place] [address] Albert Mcmahon MD [address] [address] 06/21/2024 9:30 AM CDT Appointment [facility] [address] [place] [address] [place] [address] [place] [address] lAbert Mcmahon MD [address] [place] [address] 06/25/2024 9:45 AM CDT Appointment [facility] [address] [place] [address] [place] [address] [place] [address] Albert Mcmahon MD [address] [address] 06/28/2024 9:45 AM CDT Appointment [facility] [address] [place] [address] [place] [address] [place] [address] Albert Mcmahon MD [address] [address] 07/02/2024 9:30 AM CDT Appointment [facility] [address] [place] [address] [place] [address] [place] [address] Albert Mcmahon MD [address] [address] 07/05/2024 11:15 AM CDT Appointment [facility] [address] [place] [address] [place] [address] [place] [address] Albert Mcmahon MD 3 [facility] [address]00 [place] [address] 07/09/2024 11:15 AM CDT Appointment [facility] [address] [place] [address] [place] [address] [place] [address] Albert Mcmahon MD [address] [place] [address] documented as of this encounter Visit Diagnoses Not on filedocumented in this encounter Additional Health Concerns Assessment Noted Time PHQ-9 Depression Total Score: 0 06/16/19 7:14 AM CDT documented as of this encounter Care Teams Scrap Yard Worker Relationship Specialty [place] [address] [place] [address] PCP - General FAMILY PRACTICE 05/04/21 Jose Zazueta MD Three [facility]. [facility] [address] [place] [address] [facility] Manager CARDIOVASCULAR DISEASE 05/10/17 documented as of this encounter
--- OUTSIDE RECORDS SUMMARY | 2024-06-06 01:04 | XMS_ITS | Clinical Summary ---
Author Organization [facility] Address [address] [place] [address] Phone Care Team Providers Care Adult Education Teacher Name Role Phone Salo Kelly MD Primary Care Provide r Allergies No known active allergies Medications buPROPion HCl (WELLBUTRIN XL) 150 mg Extended Release 24 hour tablet TAKE 1 TABLET BY MOUTH EVERY DAY 2 9 Active Cholestyramine-Sucro se 4 gram Powder 9 Active diphenoxylate-atropi ne 2.5-0.025 mg tablet TAKE 1 TABLET BY MOUTH 4 TIMES DAILY NEEDED FOR DIARRHEA. 1 9 Active fenofibrate nanocrystallized (TRICOR) 145 mg tablet TAKE 1 TABLET BY MOUTH EVERY DAY 0 8 Active finasteride (PROSCAR) 5 mg tablet 5 mg daily. 0 8 Active gabapentin (NEURONTIN) 300 mg capsule TAKE 3 CAPSULES BY MOUTH AT BEDTIME 0 8 Active glipiZIDE (GLUCOTROL) 10 mg tablet 9 Active lisinopril (PRINIVIL) 2.5 mg tablet TAKE 1 TABLET BY MOUTH EVERY DAY 1 8 Active magnesium oxide 250 mg Tablet Take by mouth. Active omega-3 acid ethyl esters (OMACOR,LOVAZA) 1 gram Capsule Take 4 Grams by mouth daily. Active Active Problems No known active problems Family History Medical History Relation Name Comments Breast Cancer Maternal Grandmother Breast Cancer Mother Breast Cancer Sister Relation Name Status Comments Maternal Grandmother Mother Sister Social History Tobacco Use Types Packs/Day Years Used Date Smoking Tobacco: Former Smokeless Tobacco: Never Alcohol Use Standard Drinks/Week Comments Yes 0 (1 standard drink = 0.6 oz pur e alcohol) Sex and Gender Information Value Date Recorded Sex Assigned at Not on file Legal Sex Male 3:23 AM E MARKETING SPECIALIST Gender Identity Not on file Sexual Orientation Not on file Last Filed Vital Signs Vital Sign Reading Time Taken Comments Blood Pressure 130/80 04/13/2018 2:20 PM E MARKETING SPECIALIST Pulse 76 04/13/2018 2:20 PM E MARKETING SPECIALIST Temperature - - Respiratory Rate - - Oxygen Saturation - - Inhaled Oxygen Concentration - - Weight 100.8 kg (222 lb 3.2 oz) 04/13/2018 2:20 PM E MARKETING SPECIALIST Height 193 cm (6' 4 ) 04/13/2018 2:20 PM E MARKETING SPECIALIST Body Mass Index 27.05 04/13/2018 2:20 PM E MARKETING SPECIALIST Plan of Treatment Health Maintenance Due Date Last Done Comments DTAP/TDAP/TD VACCINES (1 - Tdap) 1967 PNEUMOCOCCAL VACCINE 50+ YEARS (1 of 1 - PCV) 05/15/18 99 ZOSTER VACCINE (1 of 2) 1998 RSV VACCINE (60+ or ) (1 - 1-dose 75+ series) 2023 INFLUENZA VACCINE (#1) 2023 Care Teams Adult Education Teacher Relationship Specialty Start Date End Date Salo Kelly MD PCP - General Internal Medicine 04/13/18
--- OUTSIDE RECORDS SUMMARY | 2024-06-06 01:04 | XMS_ITS | Continuity of Care Document ---
Author Organization [facility] Address [address] [facility] [address] [place] [address] Insurance Providers Payer Plan Claims Address Claims Phone Policy Number Group Number Relation Employer Guarantor Name Guarantor Guarantor Address Guarantor Phone [employer] [address], [place] [address] [id number] Self RON CARDOZA 1950 [id number] [place] [address] [employer] [address], [place] [address] tel:[phone] Self RON CARDOZA 1950 [id number] [place] [address] [employer] .FELIPE KIMBALL H [address], [place] [address] tel:[phone] Self RON CARDOZA 1950 [id number] [place] [address] Problems Unknown Problems Results No Results Allergies, adverse reactions, alerts No known allergies and adverse reactions Medications No administered medications reported Vital Signs No vital signs reported Social History No smoking Hx information available
--- OUTSIDE RECORDS SUMMARY | 2024-06-06 01:04 | XMS_ITS | Encounter Summary ---
Author Organization [facility] Address [address] [place] [address] Care Team Providers Care Merchandising Intern Name Role Phone Jose Zazueta MD Unavailable [phone] Lucas Rivers MD Primary Care Provider [phone] Encounter Details Date Type Department Care Team (Late st Contact Info) Description 01/19/2023 MyChart Message Enc [facility] [address] [place] [address] [place] [address] [place] [address] Refills for Gabapentin 300 MG for Gabe K Social History Tobacco Use Types Packs/Day Years Used Date Smoking Tobacco: Never Smokeless Tobacco: Never Alcohol Use Standard Drinks/Week Comments Not Currently 0 (1 standard drink = 0.6 oz pur e alcohol) social- beer PHQ-2 Answer Date Recorded Patient Health Questionnaire-2 Score 0 09/09/2022 Sex and Gender Information Value Date Recorded Sex Assigned at Male 05/07/2024 1:57 PM SENIOR CONTRACTS ADMINISTRATOR Legal Sex Male 7:06 PM CDT Gender Identity Not on file Sexual Orientation Not on file Occupation Industry Job Start Date Job End Date suarez Not on file Not on file Not on file documented as of this encounter Plan of Treatment Upcoming Encounters Date Type Department Care Team (Late st Contact Info) Description 06/08/2024 7:00 AM CDT Appointment [facility] [address] [place] [address] [place] [address] [place] [address] [place] [address] [place] [address] 06/12/2024 11:00 AM CDT Appointment [facility] [address] [place] [address] [place] [address] [place] [address] Albert Mcmahon MD [address] [address] 06/19/2024 10:15 AM CDT Appointment [facility] [address] [place] [address] [place] [address] [place] [address] Albert Mcmahon MD [address] [address] 06/21/2024 9:30 AM CDT Appointment [facility] [address] [place] [address] [place] [address] [place] [address] Albert Mcmahon MD [address] [address] 06/25/2024 9:45 AM CDT Appointment [facility] [address] [place] [address] [place] [address] [place] [address] Albert Mcmahon MD [address] [address] 06/28/2024 9:45 AM CDT Appointment [facility] [address] [place] [address] [place] [address] [place] [address] Albert Mcmahon MD [address] [address] 07/02/2024 9:30 AM CDT Appointment [facility] [address] [place] [address] [place] [address] [place] [address] Albert Mcmahon MD [address] [address] 07/05/2024 11:15 AM CDT Appointment [facility] [address] [place] [address] [place] [address] [place] [address] Albert Mcmahon MD [address] [facility] [address] [place] [address] 07/09/2024 11:15 AM CDT Appointment [facility] [address] [place] [address] [place] [address] [place], [place] [id number] Albert Mcmahon MD [address] [facility] [address] [place] [address] documented as of this encounter Visit Diagnoses Not on filedocumented in this encounter Additional Health Concerns Assessment Noted Time PHQ-9 Depression Total Score: 0 06/16/19 7:14 AM CDT documented as of this encounter Care Teams Merchandising Intern Relationship Specialty [place] [address] [place] [address] PCP - General FAMILY PRACTICE 05/04/21 Jose Zazueta MD Three [facility]. [facility] [address] [place] [address] [place] [employer] Engineer CARDIOVASCULAR DISEASE 05/10/17 documented as of this encounter
--- OUTSIDE RECORDS SUMMARY | 2024-06-06 01:04 | XMS_ITS | Encounter Summary ---
Author Organization [facility] Address [address] [place] [address] Care Team Providers Care Tailings Worker Name Role Phone Jose Zazueta MD Unavailable [phone] Lucas Rivers MD Primary Care Provider [phone] Encounter Details Date Type Department Care Team (Late st Contact Info) Description 06/02/2023 MyChart Message Enc [facility] Medical Group Family & Internal Medicine [facility] [address] [place] [address] [place] [id number] [place] [address] [place] Social History Tobacco Use Types Packs/Day Years Used Date Smoking Tobacco: Never Smokeless Tobacco: Never Alcohol Use Standard Drinks/Week Comments Not Currently 0 (1 standard drink = 0.6 oz pur e alcohol) social- beer PHQ-2 Answer Date Recorded Patient Health Questionnaire-2 Score 0 09/09/2022 Sex and Gender Information Value Date Recorded Sex Assigned at Male 05/07/2024 1:57 PM FAN BALANCER Legal Sex Male 7:06 PM CDT Gender Identity Not on file Sexual Orientation Not on file Occupation Industry Job Start Date Job End Date suarez Not on file Not on file Not on file documented as of this encounter Plan of Treatment Upcoming Encounters Date Type Department Care Team (Late st Contact Info) Description 06/08/2024 7:00 AM CDT Appointment [facility] [address] [place] [address] [place] [address] [place] [address] [place] [address] [place] [address] 06/12/2024 11:00 AM CDT Appointment [facility] [address] [place] [address] [place] [address] [place] [address] Albert Mcmahon MD [address] [address] 06/19/2024 10:15 AM CDT Appointment [facility] [address] [place] [address] [place] [address] [place] [address] Albert Mcmahon MD [address] [address] 06/21/2024 9:30 AM CDT Appointment [facility] [address] [place] [address] [place] [address] [place] [address] Albert Mcmahon MD [address] [address] 06/25/2024 9:45 AM CDT Appointment [facility] [address] [place] [address] [place] [address] [place] [address] Albert Mcmahon MD [address] [address] 06/28/2024 9:45 AM CDT Appointment [facility] [address] [place] [address] [place] [address] [place] [address] Albert Mcmahon MD [address] [address] 07/02/2024 9:30 AM CDT Appointment [facility] [address] [place] [address] [place] [address] [place] [address] Albert Mcmahon MD [address] [address] 07/05/2024 11:15 AM CDT Appointment [facility] [address] [place] [address] [place] [address] [place] [address] Albert Mcmahon MD 3 [facility] [address] [place] [address] 07/09/2024 11:15 AM CDT Appointment [facility] [address] [place] [address] [place] [address] [place] [address] Albert Mcmahon MD [address] [place] [address] documented as of this encounter Visit Diagnoses Not on filedocumented in this encounter Additional Health Concerns Assessment Noted Time PHQ-9 Depression Total Score: 0 06/16/19 7:14 AM CDT documented as of this encounter Care Teams Tailings Worker Relationship Specialty [place] [address] [place] [address] PCP - General FAMILY PRACTICE 05/04/21 Jose Zazueta MD Three [facility]. [facility] [address] [place] [address] [employer] Charrer Helper CARDIOVASCULAR DISEASE 05/10/17 documented as of this encounter
--- OUTSIDE RECORDS SUMMARY | 2024-06-06 01:04 | XMS_ITS | Continuity of Care Document ---
Author Name [facility] Address [address] [place] [address] Organization [facility] Care Team Providers Care Station Tender Name Role Phone [facility] Unavailable Unavailable Problems Problem Status Onset Date Problem Type Date of Resolution Comments Source Musculoskeletal test abnormal (finding) 12/22/2023 Diagnosis History of - arthrodesis (context-dependent category) 12/22/2023 Diagnosis Restless legs (disorder) 12/22/2023 Diagnosis Closed fracture of second lumbar vertebra (disorder) 10/26/2023 Diagnosis Pain (finding) 10/26/2023 Diagnosis Neuralgia (disorder) 10/25/2023 Diagnosis Backache (finding) 10/25/2023 Diagnosis Spinal stenosis of lumbar region (disorder) 10/23/2023 Diagnosis Type II diabetes mellitus without complication (disorder) 08/24/2023 Diagnosis Hyperglycemia (disorder) 08/24/2023 Diagnosis Low back pain (disorder) 08/21/2023 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/2023 Diagnosis Chronic kidney disease (disorder) Active Condition Diabetes mellitus (disorder) Active Condition Diabetic peripheral neuropathy (disorder) Active Condition History of cervical spine fusion (situation) Active Condition History of lumbar fusion (situation) Active Condition Hyperlipidemia (disorder) Active Condition Large prostate (finding) Active Condition Osteoarthritis (disorder) Active Condition Restless legs (disorder) Active Condition Diabetes mellitus type 2 (disorder) Active Condition Kyphosis deformity of spine (disorder) Diagnosis Spinal stenosis of cervicothoracic region Diagnosis Cervical radiculopathy (disorder) Diagnosis Chronic renal impairment associated with type II diabetes mellitus (disorder) Diagnosis Chronic kidney disease (disorder) Diagnosis 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) Diagnosis Chronic pain (finding) Diagnosis Long-term current use of oral hypoglycemic medication Diagnosis Cyst of bursa (disorder) Diagnosis Intervertebral disc prolapse (disorder) Diagnosis Spinal stenosis of lumbar region (disorder) Diagnosis Acute posthemorrhagic anemia (disorder) Diagnosis Accidental puncture of dura during anesthesia Diagnosis Sciatica (disorder) Diagnosis Chronic kidney disease due to hypertension (disorder) Diagnosis Scoliosis deformity of spine (disorder) Diagnosis Cyst of bursa (disorder) Diagnosis Complication of surgical procedure (disorder) Diagnosis Reduced mobility (finding) Diagnosis Benign prostatic hypertroph without outflow obstruction (disorder) Diagnosis Mechanical complication of internal fixation device (disorder) Diagnosis Intestinal obstruction (disorder) Diagnosis Postoperative complication (disorder) Diagnosis Hyperlipidemia (disorder) Diagnosis Osteoarthritis (disorder) Diagnosis Drug allergy (disorder) Diagnosis Serious reportable event associated with product or device (event) Diagnosis Spinal stenosis, cervical region Active Diagnosis Sciatica, unspecified side Active Diagnosis Spinal stenosis, lumbar region without neurogenic claudication Active Diagnosis Medications Medication Details Route Status Patient Instructions Ordering Provider Order Date Source Glipizide 5 mg, Oral, bid, Refill(s) 0 Active [facility] Methocarbamol 500 MG Oral Tablet 500 mg = 1 Tablet(s), Oral, q6h, Scheduled / PRN PRN Muscle Spasm, # 30 Tablet(s), Refill(s) 0, [id number], 190, cm, 10/25/23 23:48:00 CDT, Height (cm), kg, 10/25/23 23:48:00 CDT, Weight (kg), 92.[address] [place] [address] Glucose Meter 1 Each, Blood Test, AC & Bedtime, 1 Each, 0 Refills, Refills 0, 08/30/23 1:57:00 PM CDT, Maintenance, Route to Pharmacy Electronical ly, [facility]/pharmacy #[id number], Brand per pt/insurance preference, 1 Each Blood Test AC and Bedtime, 190, cm, 08/23/23 12:44:00 CDT, Height (cm), 97.2, kg, 08/23/23 12:44:00 CDT, Weight (kg) Active [facility] Glucose Test Strips 1 Each, Blood Test, AC & Bedtime, 1 Each, 3 Refills, Refills 3, 08/30/23 1:57:00 PM CDT, Maintenance, Route to Pharmacy Electronical ly, [facility]/pharmacy #[id number], Brand per pt/insurance preference, 1 Each Blood Test AC and Bedtime, 190, cm, 08/23/23 12:44:00 CDT, Height (cm), 97.2, kg, 08/23/23 12:44:00 CDT, Weight (kg) Active [facility] Docusate Sodium 50 MG / sennosides, CORRECTION 8.6 MG Oral Tablet 1 Tablet(s), Oral, q12h, Hold for loose stools, # 60 Tablet(s), Refill(s) 0, [id number], 190, cm, 08/23/23 12:44:00 CDT, Height (cm), kg, 08/23/23 12:44:00 CDT, Weight (kg), 97.[address] [place] [address] acetaminophen 325 MG / oxycodone hydrochloride 10 MG Oral Tablet [Percocet] 1 Tablet(s), Oral, q6h, # 60 Tablet(s), Refill(s) 0, [id number], 193.04, cm, 02/23/23 9:19:00 [employer], Height (cm), kg, 02/18/23 14:34:00 [employer], Weight (kg), 97 Active [facility] meloxicam 15 MG Oral Tablet TAKE 1 TABLET (15 MG TOTAL) BY MOUTH DAILY. Active [address] [place] [address] SUR[facility] CLINICS Allergies, Adverse Reactions, Alerts Substance Category Reaction Severity Reaction type Status Date Reported Comments Source metFORMIN Assertion Upset stomach Propensity to adverse reactions to drug Active [facility] Results Order Name Results Value Reference Range Date Interpretation Comments Source GENERAL CHEMISTRY AST-SGOT 45 U/L 10/29 13:29 :00 [facility] GENERAL CHEMISTRY Albumin 3.2 g/dL 3.4 - 5.0 10/29 13:29 :00 [facility] GENERAL CHEMISTRY Alkaline Phosphatase 75 U/L 40 - 129 10/29 13:29 :00 [facility] GENERAL CHEMISTRY ALT-SGPT 37 U/L 10 - 50 10/29 13:29 :00 [facility] GENERAL CHEMISTRY BUN 16 mg/dL 8 - 23 10/29 13:29 :00 [facility] GENERAL CHEMISTRY Calcium 9.7 mg/dL 8.3 - 10.6 10/29 13:29 :00 [facility] GENERAL CHEMISTRY Glucose Lvl 134 mg/dL 70 - 139 10/29 13:29 :00 [facility] GENERAL CHEMISTRY Chloride 107 mmol/L 98 - 107 10/29 13:29 :00 [facility] CHEMISTRY Sodium 142 mmol/L 136 - 145 10/29 13:29 :00 [facility] CHEMISTRY Potassium 4.0 mmol/L 3.5 - 5.1 10/29 13:29 :00 [facility] GENERAL CHEMISTRY CO2 24 mmol/L 20 - 31 10/29 13:29 :00 [facility] CHEMISTRY Anion gap 15 mmol/L 0 - 20 10/29 13:29 :00 [facility] CHEMISTRY T Bili 0.43 mg/dL 0.30 - 1.20 10/29 13:29 :00 [facility] CHEMISTRY Total Protein 6.5 g/dL 5.7 - 8.2 10/29 13:29 :00 [facility] CHEMISTRY Creatinine, standardized 1.0 mg/dL 0.7 - 1.2 10/29 13:29 :00 Interpretive Data: Ltnuwy-mk-ngz e transgender patients on testosterone therapy should have results assessed using the male reference range. Vtte-iz-dxzzm e transgender patients on hormone-modul ating therapy clinical judgment is advisedfor assessment. [facility] GENERAL CHEMISTRY Estimated GFR for Adults 81 mL/min/1.7 3m 10/29 13:29 :00 Interpretive Data: Changed to CKD-EPI 2020 on 2020. [facility] CHEMISTRY Estimated GFR for peds Not calculated 10/29 13:29 :00 Interpretive Data: The estimated GFR was calculated using the Sayra brunson Wolff equation (2009) . Reference: Pediatric GFR calculator at [employer] Website. [facility] XR Abdomen XR Abdomen XR General Diagnostic Accession # Exam Date/Time Procedure Ordering Provider [id number] 10/30/2023 06:21 CDT XR Abdomen Kenneth BRANDON, Cordell quigley Reason For Exam (XR Abdomen) follow up abdominal distention Report EXAMINATIO N: XR Abdomen INDICATION : follow up abdominal distention VIEWS: 1 (2 total images) COMPARISON : Chest x-ray and CT abdomen/pe lvis dated 10/27/2023 FINDINGS: TUBES/LINE S/HARDWARE : Thoracolum bosacral posterior instrument ed fusion hardware. BOWEL GAS: Aerated but non-dilate d bowel throughout the abdomen FREE AIR: None CALCIFICAT IONS: No unusual calcificat ion LUNG BASES: Clear BONES: No acute abnormalit ies IMPRESSION : Non-obstru ctive bowel gas pattern. I have personally reviewed the images and attest to the contents of this report. * * *Final Report* * * Electronic ally Signed by: Rodney BRANDON, Delia Nielson Signed on: 10/30/23 13:23 10/29 05:28 :56 [facility] GENERAL CHEMISTRY BUN 24 mg/dL 8 10/28 09:29 :00 [facility] GENERAL CHEMISTRY Calcium 9.6 mg/dL 8.3 - 10.6 10/28 09:29 :00 [facility] CHEMISTRY Glucose Lvl 122 mg/dL 70 - 139 10/28 09:29 :00 [facility] GENERAL CHEMISTRY Chloride 105 mmol/L 98 - 107 10/28 09:29 :00 [facility] GENERAL CHEMISTRY Sodium 138 mmol/L 136 - 145 10/28 09:29 :00 [facility] GENERAL CHEMISTRY Potassium 3.3 mmol/L 3.5 - 5.1 10/28 09:29 :00 [facility] CHEMISTRY Creatinine, standardized 1.1 mg/dL 0.7 - 1.2 10/28 09:29 :00 Interpretive Data: Amponi-se-mnf e transgender patients on testosterone therapy should have results assessed using the male reference range. Ekpg-yw-jqmau e transgender patients on hormone-modul ating therapy clinical judgment is advisedfor assessment. [facility] GENERAL CHEMISTRY Estimated GFR for Adults 68 mL/min/1.7 3m 10/28 09:29 :00 Interpretive Data: Changed to CKD-EPI 2020 on 2020. [facility] CHEMISTRY Estimated GFR for peds Not calculated 10/28 09:29 :00 Interpretive Data: The estimated GFR was calculated using the Sayra brunson Wolff equation (2009) . Reference: Pediatric GFR calculator at [employer] Website. [facility] GENERAL CHEMISTRY CO2 21 mmol/L 20 - 31 10/28 09:29 :00 [facility] GENERAL CHEMISTRY Anion gap 15 mmol/L 0 - 20 10/28 09:29 :00 [facility] HEMATOLOGY PROFILES HGB 9.5 g/dL 13.5 - 17.5 10/28 09:29 :00 Interpretive Data: Wayygb-ir-nvq e transgender patients on testosterone therapy should have results assessed using the male reference range. Wpkm-ys-pzdoz e transgender patients on hormone-modul ating therapy clinical judgment is advisedfor assessment. [facility] HEMATOLOGY PROFILES HCT 29.2 % 38.8 - 50.0 10/28 09:29 :00 Interpretive Data: Tbjdpa-xn-qbn e transgender patients on testosterone therapy should have results assessed using the male reference range. Sgwy-qr-mwubs e transgender patients on hormone-modul ating therapy clinical judgment is advisedfor assessment. [facility] CT Abdomen and Pelvis CT Abdomen and Pelvis CT Scan/CT Angio Accession # Exam Date/Time Procedure Ordering Provider [id number] 10/27/2023 19:[address] Abdomen and Pelvis Elizabeth Simms Reason For Exam (CT Abdomen and Pelvis) abdominal pain Report EXAMINATIO N: CT Abdomen and pelvis with IV contrast. TECHNIQUE: CT images were acquired through the abdomen and pelvis. Sagittal and coronal reformatte d series were provided. Oral contrast was administer ed. INDICATION : abdominal pain COMPARISON : CT abdomen and pelvis 09/26/2023 from outside facility FINDINGS: Lower Chest: Bibasilar subsegment al atelectasi s. Liver: Normal size and configurat ion. No suspicious lesions. Gallbladde r/Biliary: Unremarkab le. Pancreas: Moderate atrophy with fatty infiltrati on. Spleen: Unremarkab le. Small focal calcified granuloma. Adrenal Glands: Unremarkab le. Kidneys: No nephrolith iasis. No hydronephr osis. No suspicious renal lesions. Bowel: No evidence of bowel obstructio n. Small hiatal hernia. Inspissate d material throughout the appendix. Urinary Bladder: Moderately distended with antidepend ent air visualized . Reproducti ve Organs: Normal-siz ed prostate with internal prostatic calcificat ions. Lymph Nodes: No pathologic ally enlarged lymph nodes. Vessels: No aortic aneurysm. Others: No ascites or pneumoperi toneum. Body Wall: There is a peripheral ly enhancing fluid collection along the central spine subcutaneo us tissue. The collection measures 13.4 x 1.6 x 3.8 cm in the CC by TRV by AP dimensions . (, ). Surroundin g inflammato ry changes. Focal collection of air within the adjacent anterior soft tissue structures (). This is increased in size from prior CT abdomen/pe lvis. Bones: Spinal fusion hardware of T10-L5. Hardware is intact. Redemonstr ated vertically oriented transverse fracture along the L2 vertebral body with likely posterior cortical breakthrou gh. IMPRESSION : 1. Peripheral enhancing body wall collection along the central spine subcutaneo us tissues as described above. Likely representi ng abscess. 2. Redemonstr ated L2 vertebral body fracture with posterior cortical involvemen t. 3. Air visualized in the bladder. Findings to be seen in setting of recent catheteriz ation versus less likely infection. 4. Other chronic and incidental findings as stated above. I have personally reviewed the images and attest to the contents of CT Scan/CT Angio Report this report. * * *Final Report* * * Electronic ally Signed by: Pool Rubi MD Signed on: 10/27/23 21:34 10/26 18:43 :24 [facility] XR Spine Scoliosis XR Spine Scoliosis XR General Diagnostic Accession # Exam Date/Time Procedure Ordering Provider [id number] 10/27/2023 12:46 CDT XR Spine Scoliosis Issac Salcedo MD Reason For Exam (XR Spine Scoliosis) s/p fusion Report EXAMINATIO N: XR Spine Scoliosis INDICATION : s/p fusion VIEWS: Standing frontal and lateral stitched views COMPARISON : Cervical and thoracic lumbar radiograph s performed 10 October 2023 FINDINGS: Cervical spine: C3-T2 posterior instrument ed fusion and C4-6 ACDF. Remainder of the lower cervical spine and cervicotho racic junction obscured by overlying bony and soft tissue structures . Unchanged fracture of both T2 screws. Thoracolum bar spine: T10-S1 posterior instrument ed fusion with interverte bral disc spacers at L3-4 and L5-S1. L1-2 junctional deformity has been reduced with minimal residual retrolisth esis. Unchanged grade 1 anterolist hesis at L3-4 and L5-S1. No hardware complicati on. Healing L2 fracture. IMPRESSION : Revisional thoracolum bar posterior instrument ed fusion with reduced L1-2 junctional deformity. I have personally reviewed the images and attest to the contents of this report. * * *Final Report* * * Electronic ally Signed by: Korey Wen MD Signed on: 10/27/23 14:55 10/26 12:25 :45 [facility] GENERAL CHEMISTRY AST-SGOT 75 U/L 10/26 04:26 :00 [facility] GENERAL CHEMISTRY Albumin 3.6 g/dL 3.4 - 5.0 10/26 04:26 :00 [facility] CHEMISTRY Alkaline Phosphatase 88 U/L 40 - 129 10/26 04:26 :00 [facility] CHEMISTRY ALT-SGPT 37 U/L 10 - 50 10/26 04:26 :00 [facility] CHEMISTRY BUN 24 mg/dL 8 - 23 10/26 04:26 :00 [facility] CHEMISTRY Calcium 9.5 mg/dL 8.3 - 10.6 10/26 04:26 :00 [facility] CHEMISTRY Glucose Lvl 174 mg/dL 70 - 139 10/26 04:26 :00 [facility] CHEMISTRY Chloride 104 mmol/L 98 - 107 10/26 04:26 :00 [facility] CHEMISTRY Sodium 136 mmol/L 136 - 145 10/26 04:26 :00 [facility] CHEMISTRY Potassium 4.0 mmol/L 3.5 - 5.1 10/26 04:26 :00 [facility] CHEMISTRY CO2 23 mmol/L 20 - 31 10/26 04:26 :00 [facility] CHEMISTRY Anion gap 13 mmol/L 0 - 20 10/26 04:26 :00 [facility] CHEMISTRY T Bili 0.54 mg/dL 0.30 - 1.20 10/26 04:26 :00 [facility] CHEMISTRY Total Protein 6.4 g/dL 5.7 - 8.2 10/26 04:26 :00 [facility] CHEMISTRY Creatinine, standardized 1.2 mg/dL 0.7 - 1.2 10/26 04:26 :00 Interpretive Data: Cxabgd-lg-nys e transgender patients on testosterone therapy should have results assessed using the male reference range. Yevg-pv-afykt e transgender patients on hormone-modul ating therapy clinical judgment is advisedfor assessment. [facility] GENERAL CHEMISTRY Estimated GFR for Adults 64 mL/min/1.7 3m 10/26 04:26 :00 Interpretive Data: Changed to CKD-EPI 2020 on 2020. [facility] GENERAL CHEMISTRY Estimated GFR for peds Not calculated 10/26 04:26 :00 Interpretive Data: The estimated GFR was calculated using the B boy Wolff equation (2009) . Reference: Pediatric GFR calculator at [employer] Website. [facility] GENERAL CHEMISTRY Lactic Acid, Plasma 1.5 mmol/L 0.5 - 2.2 10/26 04:26 :00 [facility] GENERAL CHEMISTRY Amylase 33 units/L 30 - 118 10/26 04:26 :00 [facility] GENERAL CHEMISTRY Lipase 33 U/L 12 - 60 10/26 04:26 :00 [facility] HEMATOLOGY PROFILES WBC 9.50 x10(9)/L 3.50 - 10.50 10/26 04:26 :00 [facility] HEMATOLOGY PROFILES RBC 4.08 x10(12)/L 4.32 - 5.72 10/26 04:26 :00 [facility] HEMATOLOGY PROFILES HGB 11.5 g/dL 13.5 - 17.5 10/26 04:26 :00 Interpretive Data: Knnslr-xg-lfz e transgender patients on testosterone therapy should have results assessed using the male reference range. Tyjx-op-dhxdn e transgender patients on hormone-modul ating therapy clinical judgment is advisedfor assessment. [facility] HEMATOLOGY PROFILES HCT 35.8 % 38.8 - 50.0 10/26 04:26 :00 Interpretive Data: Jwwdmv-la-oot e transgender patients on testosterone therapy should have results assessed using the male reference range. Tsqr-ar-taiif e transgender patients on hormone-modul ating therapy clinical judgment is advisedfor assessment. [facility] HEMATOLOGY PROFILES MCV 87.7 fL 81.2 - 95.1 10/26 04:26 :00 [facility] HEMATOLOGY PROFILES MCH 28.2 pg 26.0 - 33.0 10/26 04:26 :00 [facility] HEMATOLOGY PROFILES MCHC 32.1 g/dL 32.0 - 36.0 10/26 04:26 :00 [facility] HEMATOLOGY PROFILES RDW CV 13.9 % 11.8 - 15.6 10/26 04:26 :00 [facility] HEMATOLOGY PROFILES RDW SD 44.3 fL 35.1 - 43.9 10/26 04:26 :00 [facility] HEMATOLOGY PROFILES PLT 184 x10(9)/L 150 - 450 10/26 04:26 :00 [facility] HEMATOLOGY PROFILES MPV 10.9 8.0 - 12.0 10/26 04:26 :00 [facility] HEMATOLOGY PROFILES % Nucleated RBCs 0.0 % 10/26 04:26 : [facility] HEMATOLOGY PROFILES Absolute Nucleated RBCs 0.0 x10(9)/L 0.0 - 0.0 10/26 04:26 :00 Interpretive Data: Normal values not established in patients less than 18 years old. [facility] HEMATOLOGY PROFILES % Neutrophils 80.0 % 10/26 04:26 : [facility] HEMATOLOGY PROFILES % Lymphocytes 10.7 % 10/26 04:26 :00 [facility] HEMATOLOGY PROFILES % Monocytes 8.7 % 10/26 04:26 :00 [facility] HEMATOLOGY PROFILES % Eosinophils 0.0 % 10/26 04:26 :00 [facility] HEMATOLOGY PROFILES % Basophils 0.3 % 10/26 04:26 :00 [facility] HEMATOLOGY PROFILES % Immature Granulocytes 0.30 % 0.02 - 0.42 10/26 04:26 :00 [facility] HEMATOLOGY PROFILES Absolute Granulocytes 7.59 x10(9)/L 1.70 - 7.00 10/26 04:26 :00 [facility] HEMATOLOGY PROFILES Abs Lymphocytes 1.02 x10(9)/L 0.90 - 2.90 10/26 04:26 :00 [facility] HEMATOLOGY PROFILES Abs Monocytes 0.83 x10(9)/L 0.30 - 0.90 10/26 04:26 :00 [facility] HEMATOLOGY PROFILES Abs Eosinophils 0.00 x10(9)/L 0.05 - 0.50 10/26 04:26 :00 [facility] HEMATOLOGY PROFILES Abs Basophils 0.03 x10(9)/L 0.00 - 0.30 10/26 04:26 :00 [facility] HEMATOLOGY PROFILES Abs Immature Granulocytes 0.03 x10(9)/L 0.00 - 0.03 10/26 04:26 :00 [facility] XR Abdomen XR Abdomen XR General Diagnostic Accession # Exam Date/Time Procedure Ordering Provider [id number] 10/27/2023 00:33 CDT XR Abdomen Brnida BRANDON, Miki Cary Reason For Exam (XR Abdomen) Upright for pneumoperi toneum Report EXAMINATIO N: XR Abdomen INDICATION : Upright for pneumoperi toneum VIEWS: 1 COMPARISON : None FINDINGS: TUBES/LINE S/HARDWARE : Spinal fusion hardware projects over the thoracolum bar spine. BOWEL GAS: Aerated but non-dilate d bowel throughout the partially visualized abdomen FREE AIR: None CALCIFICAT IONS: No unusual calcificat ion LUNG BASES: Clear BONES: No acute abnormalit ies IMPRESSION : No pneumoperi toneum. I have personally reviewed the images and attest to the contents of this report. * * *Final Report* * * Electronic ally Signed by: Meryl BRANDON, Brandon Newman Signed on: 10/27/23 06:08 10/25 23:49 :43 [facility] COAGULATIO N PT 14.2 s 9.4 - 12.5 10/25 13:49 :00 [facility] COAGULATIO N INR 1.3 0.9 - 1.2 10/25 13:49 :00 Interpretive Data: Suggested therapeutic INR range for stable oral anticoagulati on: Optimal Therapeutic INR Range 2.0-3.0 Therapeutic Range for High-Risk Groups (antiphoshpol ipid syndrome with previous thrombosis) 2.0-3.0 DVT of the leg 2.0-3.0 PE 2.0-3.0 Patients with AF and Stable Coronary Artery Disease 2.0-3.0 Bioprosthetic valve in the mitral position 2.0-3.0 Mechanical mitral valve or additional risk factors 2.5-3.5 Prevention of Recurrent VTE in Women prophylaxis for 6 weeks with prophylactic- or intermediate- dose LMWH or warfarin targeted at INR 2.0 or 3.0 rather than no prophylaxis For additional guidance see: Jaimie GH, Suraj EA, Carlos M, Fidelina DD, Marjan altamirano HJ; [employer] Antithromboti c Therapy and Prevention of Thrombosis Panel. Executive summary: Antithromboti c Therapy and Prevention of Thrombosis, 9th Ed: [employer] Evidence-Base d Clinical Practice Guidelines. Chest. 2011; 141(2 Suppl):7S-47S . doi: 10.1378/chest .1412S3 [facility] GENERAL CHEMISTRY AST-SGOT 77 U/L 10/25 13:49 :00 [facility] GENERAL CHEMISTRY Albumin 3.8 g/dL 3.4 - 5.0 10/25 13:49 :00 [facility] CHEMISTRY Alkaline Phosphatase 98 U/L 40 - 129 10/25 13:49 :00 [facility] CHEMISTRY ALT-SGPT 31 U/L 10 - 50 10/25 13:49 :00 [facility] CHEMISTRY BUN 24 mg/dL 8 - 23 10/25 13:49 :00 [facility] GENERAL CHEMISTRY Calcium 9.3 mg/dL 8.3 - 10.6 10/25 13:49 :00 [facility] GENERAL CHEMISTRY Glucose Lvl 186 mg/dL 70 - 139 10/25 13:49 :00 [facility] GENERAL CHEMISTRY Chloride 107 mmol/L 98 - 107 10/25 13:49 :00 [facility] GENERAL CHEMISTRY Sodium 139 mmol/L 136 - 145 10/25 13:49 :00 [facility] GENERAL CHEMISTRY Potassium 4.7 mmol/L 3.5 - 5.1 10/25 13:49 :00 [facility] GENERAL CHEMISTRY CO2 24 mmol/L 20 - 31 10/25 13:49 :00 [facility] GENERAL CHEMISTRY Anion gap 13 mmol/L 0 - 20 10/25 13:49 :00 [facility] GENERAL CHEMISTRY T Bili 0.73 mg/dL 0.30 - 1.20 10/25 13:49 :00 [facility] GENERAL CHEMISTRY Total Protein 6.6 g/dL 5.7 - 8.2 10/25 13:49 :00 [facility] GENERAL CHEMISTRY Creatinine, standardized 1.2 mg/dL 0.7 - 1.2 10/25 13:49 :00 Interpretive Data: Kyabrj-ls-xsn e transgender patients on testosterone therapy should have results assessed using the male reference range. Ulpl-am-afxfx e transgender patients on hormone-modul ating therapy clinical judgment is advisedfor assessment. [facility] [facility] GENERAL CHEMISTRY Estimated GFR for Adults 60 mL/min/1.7 3m 10/25 13:49 :00 Interpretive Data: Changed to CKD-EPI 2020 on 2020. [facility] GENERAL CHEMISTRY Estimated GFR for peds Not calculated 10/25 13:49 :00 Interpretive Data: The estimated GFR was calculated using the Sayra brunson Wolff equation (2009) . Reference: Pediatric GFR calculator at [employer] Website. [facility] GENERAL CHEMISTRY Lipase 29 U/L 12 - 60 10/25 13:49 :00 [facility] HEMATOLOGY PROFILES WBC 9.22 x10(9)/L 3.50 - 10.50 10/25 13:49 :00 [facility] HEMATOLOGY PROFILES RBC 4.23 x10(12)/L 4.32 - 5.72 10/25 13:49 :00 [facility] HEMATOLOGY PROFILES HGB 12.2 g/dL 13.5 - 17.5 10/25 13:49 :00 Interpretive Data: Klknqm-ms-sex e transgender patients on testosterone therapy should have results assessed using the male reference range. Bnpy-di-cpdoi e transgender patients on hormone-modul ating therapy clinical judgment is advisedfor assessment. [facility] HEMATOLOGY PROFILES HCT 37.8 % 38.8 - 50.0 10/25 13:49 :00 Interpretive Data: Nosjox-og-xtd e transgender patients on testosterone therapy should have results assessed using the male reference range. Ujht-bw-vmedo e transgender patients on hormone-modul ating therapy clinical judgment is advisedfor assessment. [facility] HEMATOLOGY PROFILES MCV 89.4 fL 81.2 - 95.1 10/25 13:49 :00 [facility] HEMATOLOGY PROFILES MCH 28.8 pg 26.0 - 33.0 10/25 13:49 :00 [facility] HEMATOLOGY PROFILES MCHC 32.3 g/dL 32.0 - 36.0 10/25 13:49 :00 [facility] HEMATOLOGY PROFILES RDW CV 14.0 % 11.8 - 15.6 10/25 13:49 :00 [facility] HEMATOLOGY PROFILES RDW SD 45.8 fL 35.1 - 43.9 10/25 13:49 :00 [facility] HEMATOLOGY PROFILES PLT 188 x10(9)/L 150 - 450 10/25 13:49 :00 [facility] HEMATOLOGY PROFILES MPV 10.8 8.0 - 12.0 10/25 13:49 :00 [facility] HEMATOLOGY PROFILES % Nucleated RBCs 0.0 % 10/25 13:49 :00 [facility] HEMATOLOGY PROFILES Absolute Nucleated RBCs 0.0 x10(9)/L 0.0 - 0.0 10/25 13:49 :00 Interpretive Data: Normal values not established in patients less than 18 years old. [facility] HEMATOLOGY PROFILES % Neutrophils 85.9 % 10/25 13:49 :00 [facility] HEMATOLOGY PROFILES % Lymphocytes 6.8 % 10/25 13:49 :00 [facility] HEMATOLOGY PROFILES % Monocytes 6.5 % 10/25 13:49 :00 [facility] HEMATOLOGY PROFILES % Eosinophils 0.1 % 10/25 13:49 :00 [facility] HEMATOLOGY PROFILES % Basophils 0.3 % 10/25 13:49 :00 [facility] HEMATOLOGY PROFILES % Immature Granulocytes 0.40 % 0.02 - 0.42 10/25 13:49 :00 [facility] HEMATOLOGY PROFILES Absolute Granulocytes 7.91 x10(9)/L 1.70 - 7.00 10/25 13:49 :00 [facility] HEMATOLOGY PROFILES Abs Lymphocytes 0.63 x10(9)/L 0.90 - 2.90 10/25 13:49 :00 [facility] HEMATOLOGY PROFILES Abs Monocytes 0.60 x10(9)/L 0.30 - 0.90 10/25 13:49 :00 [facility] HEMATOLOGY PROFILES Abs Eosinophils 0.01 x10(9)/L 0.05 - 0.50 10/25 13:49 :00 [facility] HEMATOLOGY PROFILES Abs Basophils 0.03 x10(9)/L 0.00 - 0.30 10/25 13:49 :00 [facility] HEMATOLOGY PROFILES Abs Immature Granulocytes 0.04 x10(9)/L 0.00 - 0.03 10/25 13:49 :00 [facility] XR Abdomen XR Abdomen XR General Diagnostic Accession # Exam Date/Time Procedure Ordering Provider [id number] 10/26/2023 08:21 CDT XR Abdomen Kenneth BRANDON, Cordell quigley Reason For Exam (XR Abdomen) Abdominal distention and pain Report EXAMINATIO N: XR Abdomen INDICATION : Abdominal distention and pain VIEWS: Supine abdominal radiograph COMPARISON : None FINDINGS: TUBES/LINE S/HARDWARE : Hardware in the lumbar and thoracic spine. Rosales catheter. Catheter tip projects at the right pelvis BOWEL GAS: Aerated but non-dilate d bowel throughout the abdomen. Moderate colonic stool volume. FREE AIR: None within the limits of a supine examinatio n. CALCIFICAT IONS: No unusual calcificat ion LUNG BASES: Clear BONES: No acute abnormalit ies IMPRESSION : Non-obstru ctive bowel gas pattern. Moderate colonic stool volume. I have personally reviewed the images and attest to the contents of this report. * * *Final Report* * * Electronic ally Signed by: Sukumar BRANDON, Nicolás Awan Signed on: 10/26/23 08:37 10/25 07:40 :27 [facility] GENERAL CHEMISTRY AST-SGOT 33 U/L 10/24 16:38 :00 [facility] GENERAL CHEMISTRY Albumin 4.4 g/dL 3.4 - 5.0 10/24 16:38 :00 [facility] GENERAL CHEMISTRY Alkaline Phosphatase 106 U/L 40 - 129 10/24 16:38 :00 [facility] GENERAL CHEMISTRY ALT-SGPT 22 U/L 10 - 50 10/24 16:38 :00 [facility] GENERAL CHEMISTRY T Bili 0.55 mg/dL 0.30 - 1.20 10/24 16:38 :00 [facility] GENERAL CHEMISTRY Total Protein 7.4 g/dL 5.7 - 8.2 10/24 16:38 :00 [facility] HEMATOLOGY PROFILES WBC 5.44 x10(9)/L 3.50 - 10.50 10/24 16:38 :00 [facility] HEMATOLOGY PROFILES RBC 4.76 x10(12)/L 4.32 - 5.72 10/24 16:38 :00 [facility] HEMATOLOGY PROFILES HGB 13.6 g/dL 13.5 - 17.5 10/24 16:38 :00 Interpretive Data: Yuyvoi-wb-gvb e transgender patients on testosterone therapy should have results assessed using the male reference range. Cqqx-fm-vvrjz e transgender patients on hormone-modul ating therapy clinical judgment is advisedfor assessment. [facility] HEMATOLOGY PROFILES HCT 41.4 % 38.8 - 50.0 10/24 16:38 :00 Interpretive Data: Arjhkw-le-fkg e transgender patients on testosterone therapy should have results assessed using the male reference range. Omdd-sn-aialb e transgender patients on hormone-modul ating therapy clinical judgment is advisedfor assessment. [facility] HEMATOLOGY PROFILES MCV 87.0 fL 81.2 - 95.1 10/24 16:38 :00 [facility] HEMATOLOGY PROFILES MCH 28.6 pg 26.0 - 33.0 10/24 16:38 :00 [facility] HEMATOLOGY PROFILES MCHC 32.9 g/dL 32.0 - 36.0 10/24 16:38 :00 [facility] HEMATOLOGY PROFILES RDW CV 13.7 % 11.8 - 15.6 10/24 16:38 :00 [facility] HEMATOLOGY PROFILES RDW SD 44.1 fL 35.1 - 43.9 10/24 16:38 :00 [facility] HEMATOLOGY PROFILES PLT 201 x10(9)/L 150 - 450 10/24 16:38 :00 [facility] HEMATOLOGY PROFILES MPV 10.9 8.0 - 12.0 10/24 16:38 :00 [facility] HEMATOLOGY PROFILES % Nucleated RBCs 0.0 % 10/24 16:38 :00 [facility] HEMATOLOGY PROFILES Absolute Nucleated RBCs 0.0 x10(9)/L 0.0 - 0.0 10/24 16:38 :00 Interpretive Data: Normal values not established in patients less than 18 years old. [facility] HEMATOLOGY PROFILES % Neutrophils 69.1 % 10/24 16:38 :00 [facility] HEMATOLOGY PROFILES % Lymphocytes 21.7 % 10/24 16:38 :00 [facility] HEMATOLOGY PROFILES % Monocytes 6.6 % 10/24 16:38 :00 [facility] HEMATOLOGY PROFILES % Eosinophils 1.3 % 10/24 16:38 :00 [facility] HEMATOLOGY PROFILES % Basophils 0.9 % 10/24 16:38 :00 [facility] HEMATOLOGY PROFILES % Immature Granulocytes 0.40 % 0.02 - 0.42 10/24 16:38 :00 [facility] HEMATOLOGY PROFILES Absolute Granulocytes 3.76 x10(9)/L 1.70 - 7.00 10/24 16:38 :00 [facility] HEMATOLOGY PROFILES Abs Lymphocytes 1.18 x10(9)/L 0.90 - 2.90 10/24 16:38 :00 [facility] HEMATOLOGY PROFILES Abs Monocytes 0.36 x10(9)/L 0.30 - 0.90 10/24 16:38 :00 [facility] HEMATOLOGY PROFILES Abs Eosinophils 0.07 x10(9)/L 0.05 - 0.50 10/24 16:38 :00 [facility] HEMATOLOGY PROFILES Abs Basophils 0.05 x10(9)/L 0.00 - 0.30 10/24 16:38 :00 [facility] HEMATOLOGY PROFILES Abs Immature Granulocytes 0.02 x10(9)/L 0.00 - 0.03 10/24 16:38 :00 [facility] XR C-Arm XR C-Arm XR General Diagnostic Accession # Exam Date/Time Procedure Ordering Provider [id number] 10/25/2023 21:18 CDT XR C-Arm Beatrice BRANDON, Joesph Rodriguez Reason For Exam (XR C-Arm) spinal fusion Report OR C-arm case. Exam performed. No report to be issued. I have personally reviewed the images and attest to the contents of this report. * * *Final Report* * * Electronic ally Signed by: [employer], PS360 Signed on: 10/26/23 08:19 10/24 16:10 :40 [facility] XR Spine Thoracolum bar XR Spine Thoracolumba r XR General Diagnostic Accession # Exam Date/Time Procedure Ordering Provider [id number] 10/10/2023 17:06 CDT XR Spine Thoracolum bar Yuri Samano Reason For Exam (XR Spine Thoracolum bar) back pain, hx fusions Report EXAMINATIO N: XR Spine Cervical w/ Flext and/or Ext, XR Spine Thoracolum bar INDICATION : cervical fusion VIEWS: 6 views of the cervical spine and 4 views of the thoracolum bar spine COMPARISON : August 11, 2023 cervical spine radiograph s; October 10, [address]; August 29, 2023 lumbar spine radiograph s FINDINGS: Cervical spine: The cervical spine is visualized from the skull base to the superior endplate of C6 on the lateral views. With the remainder of the lower cervical spine and the cervicotho racic junction obscured by overlying bony and soft tissue structures . ACDF at C4-C6 and posterior fusion from C3-T2. Fracture of both T2 screws. Thoracolum bar spine: There are 5 nonrib-ann ring lumbar-typ e vertebral bodies. Posterior fusion from L2-S1. Grade 2 retrolisth esis of L1 and severe disc height loss at L1-2 with posterior superior fracture of L2, new since August 2023 and better evaluated on same day CT. No hardware complicati on. 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 IMPRESSION : 1. ACDF at C4-C6 and incomplete ly visualized C3-T2 posterior fusion with fracture of both T2 screws. 2. L2-S1 fusion without hardware complicati on. 3. L2 fracture with grade 2 retrolisth esis of L1. I have personally reviewed the images and attest to the contents of this report. * * *Final Report* * * Electronic ally Signed by: Justine Benito MD Signed on: 10/11/23 09:24 10/09 17:06 :21 [facility] XR Spine Cervical w/ Flext and/or Ext XR Spine Cervical w/ Flext and/or Ext XR General Diagnostic Accession # Exam Date/Time Procedure Ordering Provider [id number] 10/10/2023 17:06 CDT XR Spine Cervical w/ Yuri Samano Flext and/or Ext Reason For Exam (XR Spine Cervical w/ Flext and/or Ext) cervical fusion Report EXAMINATIO N: XR Spine Cervical w/ Flext and/or Ext, XR Spine Thoracolum bar INDICATION : cervical fusion VIEWS: 6 views of the cervical spine and 4 views of the thoracolum bar spine COMPARISON : August 11, 2023 cervical spine radiograph s; October 10, [address]; August 29, 2023 lumbar spine radiograph s FINDINGS: Cervical spine: The cervical spine is visualized from the skull base to the superior endplate of C6 on the lateral views. With the remainder of the lower cervical spine and the cervicotho racic junction obscured by overlying bony and soft tissue structures . ACDF at C4-C6 and posterior fusion from C3-T2. Fracture of both T2 screws. Thoracolum bar spine: There are 5 nonrib-ann ring lumbar-typ e vertebral bodies. Posterior fusion from L2-S1. Grade 2 retrolisth esis of L1 and severe disc height loss at L1-2 with posterior superior fracture of L2, new since August 2023 and better evaluated on same day CT. No hardware complicati on. 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 IMPRESSION : 1. ACDF at C4-C6 and incomplete ly visualized C3-T2 posterior fusion with fracture of both T2 screws. 2. L2-S1 fusion without hardware complicati on. 3. L2 fracture with grade 2 retrolisth esis of L1. I have personally reviewed the images and attest to the contents of this report. * * *Final Report* * * Electronic ally Signed by: Justine Benito MD Signed on: 10/11/23 09:24 10/09 17:06 :21 [facility] MRI Spine Thoracic MRI Spine Thoracic MRI/MRA Accession # Exam Date/Time Procedure Ordering Provider [id number] 10/10/2023 16:24 CDT MRI Spine Thoracic Yuri Samano Reason For Exam (MRI Spine Thoracic) L2 fx, s/p spinal fusion Report EXAMINATIO N: MRI Spine Thoracic, MRI Spine Lumbar without IV contrast INDICATION : L2 fx, s/p spinal fusion COMPARISON : Same-day thoracic and lumbar spine CTs. 08/09/2023 outside lumbar spine MRI. FINDINGS: Thoracic spine: There is partially imaged cervicotho racic posterior spinal fusion hardware within the T1 and T2 vertebral bodies. Convention al vertebral numbering. No acute fractures or malalignme nts. No marrow signal abnormalit y. Degenerati ve changes with disc-osteo phyte complexes and facet/cost overtebral arthropath y. There is a small disc protrusion at T6-T7 resulting in mild spinal canal stenosis. No severe canal or foraminal stenosis. Spinal cord is normal in morphology and signal intensity. Calcified mediastina l and perihilar lymph nodes. Lumbar spine: There are postsurgic al changes status post L3-L5 posterior spinal fusion. Again seen, there is a compressio n fracture of L2, predominan tly involving the posterior superior endplate with marrow edema in the vertebral body, suggesting that the fracture may be recent. There is increased kyphosis at this level and angulation as well as retropulsi on of the fracture fragment, resulting in moderate spinal canal stenosis at the L1-L2 level. Degenerati ve changes with disc-osteo phyte complexes and facet/cost overtebral arthropath y. There is a small disc protrusion at T6-T7 resulting in mild spinal canal stenosis. There is stable grade 1 anterolist hesis of L4 on L5. No severe canal or foraminal stenosis. Spinal cord is normal in morphology and signal intensity. MRI/MRA Report IMPRESSION : Recent fracture of the superior posterior endplate of the L2 vertebral body with increased kyphosis and retrolisth esis of L1 on L2 as well as increased retropulsi on of the dominant fracture fragment of the superior endplate, resulting in moderate spinal canal stenosis at this level. No abnormal spinal cord signal. I have personally reviewed the images and attest to the contents of this report. * * *Final Report* * * Electronic ally Signed by: Mary Kate Hernandez DO Signed on: 10/10/23 18:06 10/09 15:22 :26 [facility] [place] [facility] MRI Spine Lumbar MRI/MRA Accession # Exam Date/Time Procedure Ordering Provider [id number] 10/10/2023 16:24 CDT MRI Spine Lumbar Yuri Samano Reason For Exam (MRI Spine Lumbar) L2 fx, s/p spinal fusion Report EXAMINATIO N: MRI Spine Thoracic, MRI Spine Lumbar without IV contrast INDICATION : L2 fx, s/p spinal fusion COMPARISON : Same-day thoracic and lumbar spine CTs. 08/09/2023 outside lumbar spine MRI. FINDINGS: Thoracic spine: There is partially imaged cervicotho racic posterior spinal fusion hardware within the T1 and T2 vertebral bodies. Convention al vertebral numbering. No acute fractures or malalignme nts. No marrow signal abnormalit y. Degenerati ve changes with disc-osteo phyte complexes and facet/cost overtebral arthropath y. There is a small disc protrusion at T6-T7 resulting in mild spinal canal stenosis. No severe canal or foraminal stenosis. Spinal cord is normal in morphology and signal intensity. Calcified mediastina l and perihilar lymph nodes. Lumbar spine: There are postsurgic al changes status post L3-L5 posterior spinal fusion. Again seen, there is a compressio n fracture of L2, predominan tly involving the posterior superior endplate with marrow edema in the vertebral body, suggesting that the fracture may be recent. There is increased kyphosis at this level and angulation as well as retropulsi on of the fracture fragment, resulting in moderate spinal canal stenosis at the L1-L2 level. Degenerati ve changes with disc-osteo phyte complexes and facet/cost overtebral arthropath y. There is a small disc protrusion at T6-T7 resulting in mild spinal canal stenosis. There is stable grade 1 anterolist hesis of L4 on L5. No severe canal or foraminal stenosis. Spinal cord is normal in morphology and signal intensity. MRI/MRA Report IMPRESSION : Recent fracture of the superior posterior endplate of the L2 vertebral body with increased kyphosis and retrolisth esis of L1 on L2 as well as increased retropulsi on of the dominant fracture fragment of the superior endplate, resulting in moderate spinal canal stenosis at this level. No abnormal spinal cord signal. I have personally reviewed the images and attest to the contents of this report. * * *Final Report* * * Electronic ally Signed by: Mary Kate Hernandez DO Signed on: 10/10/23 18:06 10/09 15:22 :26 [facility] [place] CT Spine Lumbar CT Spine Lumbar CT Scan/CT Angio Accession # Exam Date/Time Procedure Ordering Provider [id number] 10/10/2023 13:[address] Spine Lumbar Yuri Samano Reason For Exam (CT Spine Lumbar) L2 fx, s/p spinal fusion Report EXAMINATIO N: CT Spine Thoracic without IV contrast, CT Spine Lumbar without IV contrast INDICATION : L2 fx, s/p spinal fusion COMPARISON : CT lumbar spine August 11, 2023, lumbar spine radiograph s August 29, 2023, CT of the abdomen pelvis September 26, 2023 FINDINGS: POSTSURGIC AL CHANGES: Partially imaged cervicotho racic posterior stabilizat ion and anterior cervical discectomy and fusion. Posterior stabilizat ion of L2-L5, interbody fusion of L2-L3 and L4-L5, and posterior decompress ion of L2-L5. REGION OF INTEREST: Redemonstr ated fracture of the superior L2 vertebral body extending into the bilateral pedicles. Associated increased retrolisth esis of L1 on L2. 1.3 cm retropulsi on of a dominant fracture fragment of the superior endplate. Increased kyphosis and degenerati ve changes at the L1-L2 vertebral body level when compared with abdomen/pe lvis CT September 26, 2023. ALIGNMENT: See above. Grade 1 spondyloli sthesis of L4 on L5, stable. Grade 1 spondyloli sthesis of C7 on T1. VERTEBRAE: See above. DISC DEGENERATI ON: Multilevel mild to moderate degenerati ve changes of the thoracic and lumbar spine. No severe spinal canal narrowing. Evaluation for cord pathology would be better evaluated with MRI. PARASPINAL SOFT TISSUES: Calcified mediastina l and perihilar lymph nodes. IMPRESSION : Redemonstr ated fracture of the superior L2 vertebral body with increased kyphosis and retrolisth esis of L1 on L2 as well as increased retropulsi on of the dominant fracture fragment of the superior endplate. No severe spinal canal narrowing. I have personally reviewed the images and attest to the contents of this report. * * *Final Report* * * Electronic ally Signed by: Orlando Wright DO Signed on: 10/10/23 13:51 10/09 12:34 :51 [facility] [place] CT Spine Thoracic CT Spine Thoracic CT Scan/CT Angio Accession # Exam Date/Time Procedure Ordering Provider [id number] 10/10/2023 13:[address] Spine Thoracic Yuri Samano Reason For Exam (CT Spine Thoracic) L2 fx, s/p spinal fusion Report EXAMINATIO N: CT Spine Thoracic without IV contrast, CT Spine Lumbar without IV contrast INDICATION : L2 fx, s/p spinal fusion COMPARISON : CT lumbar spine August 11, 2023, lumbar spine radiograph s August 29, 2023, CT of the abdomen pelvis September 26, 2023 FINDINGS: POSTSURGIC AL CHANGES: Partially imaged cervicotho racic posterior stabilizat ion and anterior cervical discectomy and fusion. Posterior stabilizat ion of L2-L5, interbody fusion of L2-L3 and L4-L5, and posterior decompress ion of L2-L5. REGION OF INTEREST: Redemonstr ated fracture of the superior L2 vertebral body extending into the bilateral pedicles. Associated increased retrolisth esis of L1 on L2. 1.3 cm retropulsi on of a dominant fracture fragment of the superior endplate. Increased kyphosis and degenerati ve changes at the L1-L2 vertebral body level when compared with abdomen/pe lvis CT September 26, 2023. ALIGNMENT: See above. Grade 1 spondyloli sthesis of L4 on L5, stable. Grade 1 spondyloli sthesis of C7 on T1. VERTEBRAE: See above. DISC DEGENERATI ON: Multilevel mild to moderate degenerati ve changes of the thoracic and lumbar spine. No severe spinal canal narrowing. Evaluation for cord pathology would be better evaluated with MRI. PARASPINAL SOFT TISSUES: Calcified mediastina l and perihilar lymph nodes. IMPRESSION : Redemonstr ated fracture of the superior L2 vertebral body with increased kyphosis and retrolisth esis of L1 on L2 as well as increased retropulsi on of the dominant fracture fragment of the superior endplate. No severe spinal canal narrowing. I have personally reviewed the images and attest to the contents of this report. * * *Final Report* * * Electronic ally Signed by: Orlando Wright DO Signed on: 10/10/23 13:51 10/09 12:34 :51 [facility] GENERAL CHEMISTRY Sodium 137 mmol/L 136 - 145 08/28 15:21 :00 [facility] GENERAL CHEMISTRY Potassium 3.8 mmol/L 3.5 - 5.1 08/28 15:21 :00 [facility] GENERAL CHEMISTRY Chloride 100 mmol/L 98 - 107 08/28 15:21 :00 [facility] GENERAL CHEMISTRY CO2 27 mmol/L - 08/28 15:21 :00 [facility] GENERAL CHEMISTRY Glucose Lvl 193 mg/dL 70 - 139 08/28 15:21 :00 [facility] GENERAL CHEMISTRY BUN 18 mg/dL 8 - 08/28 15:21 :00 [facility] GENERAL CHEMISTRY Creatinine, standardized 1.09 mg/dL 0.70 - 1.20 08/28 15:21 :00 Interpretive Data: Duyodg-do-kes e transgender patients on testosterone therapy should have results assessed using the male reference range. Awoj-ct-frniq e transgender patients on hormone-modul ating therapy clinical judgment is advisedfor assessment. [facility] GENERAL CHEMISTRY Calcium 9.6 mg/dL 8.6 - 10.2 08/28 15:21 :00 [facility] GENERAL CHEMISTRY Estimated GFR for Adults 71 mL/min/1.7 3m 08/28 15:21 :00 Result Comment: The eGFR was estimated using the CKD-EPI equation. The National [employer] Foundation recommends that all clinical labs utilize this equation: Lilia , Suresh LA, Essence CH, et al. A new equation to estimate glomerular filtration rate. Samina Bar Useful Or [employer]usser Med. 2009;150(9):6 04-612. For calculation reference see https://www.k arney.org/pro fessionals/kd oqi/gfr_calcu susan Interpretive Data: Changed to CKD-EPI 2020 on 2020. [facility] GENERAL CHEMISTRY Anion gap 14 mmol/L 0 - 20 08/28 15:21 :00 [facility] CHEMISTRY Estimated GFR for peds Not calculated 08/28 15:21 :00 Interpretive Data: The estimated GFR was calculated using the Sayra brunson Wolff equation (2009) . Reference: Pediatric GFR calculator at National Kid[employer] Website. [facility] HEMATOLOGY PROFILES WBC 3.61 x10(9)/L 3.50 - 10.50 08/28 15:21 :00 [facility] HEMATOLOGY PROFILES RBC 3.35 x10(12)/L 4.32 - 5.72 08/28 15:21 :00 [facility] HEMATOLOGY PROFILES HGB 9.8 g/dL 13.5 - 17.5 08/28 15:21 :00 Interpretive Data: Lnbmzb-sc-kgn e transgender patients on testosterone therapy should have results assessed using the male reference range. Wghg-ws-wwsup e transgender patients on hormone-modul ating therapy clinical judgment is advisedfor assessment. [facility] HEMATOLOGY PROFILES HCT 29.7 % 38.8 - 50.0 08/28 15:21 :00 Interpretive Data: Aajcog-yn-ejn e transgender patients on testosterone therapy should have results assessed using the male reference range. Ovgo-is-ynhcq e transgender patients on hormone-modul ating therapy clinical judgment is advisedfor assessment. [facility] HEMATOLOGY PROFILES MCV 88.7 fL 81.2 - 95.1 08/28 15:21 : [facility] [facility] H[facility] PROFILES MCH 29.3 pg 26.0 - 33.0 08/28 15: :00 [facility] HEMATOLOGY PROFILES MCHC 33.0 g/dL 32.0 - 36.0 08/28 15:21 :00 [facility] HEMATOLOGY PROFILES RDW CV 13.2 % 11.8 - 15.6 08/28 15:21 :00 [facility] HEMATOLOGY PROFILES RDW SD 42.9 fL 35.1 - 43.9 08/28 15:21 :00 [facility] HEMATOLOGY PROFILES PLT 181 x10(9)/L 150 - 450 08/28 15:21 :00 [facility] HEMATOLOGY PROFILES MPV 10.7 8.0 - 12.0 08/28 15: : [facility] HEMATOLOGY PROFILES % Nucleated RBCs 0.0 % 08/28 15:21 :00 [facility] HEMATOLOGY PROFILES Absolute Nucleated RBCs 0.0 x10(9)/L 0.0 - 0.0 08/28 15:21 : Interpretive Data: Normal values not established in patients less than 18 years old. [facility] HEMATOLOGY PROFILES % Neutrophils 69.2 % 08/28 15: : [facility] HEMATOLOGY PROFILES % Lymphocytes 19.7 % 08/28 15:21 : [facility] HEMATOLOGY PROFILES % Monocytes 6.4 % 08/28 15:21 : [facility] HEMATOLOGY PROFILES % Eosinophils 3.3 % 08/28 15:21 : [facility] HEMATOLOGY PROFILES % Basophils 0.8 % 08/28 15:21 : [facility] HEMATOLOGY PROFILES % Immature Granulocytes 0.60 % 0.02 - 0.42 08/28 15:21 :00 [facility] HEMATOLOGY PROFILES Absolute Granulocytes 2.50 x10(9)/L 1.70 - 7.00 08/28 15:21 :00 [facility] HEMATOLOGY PROFILES Abs Lymphocytes 0.71 x10(9)/L 0.90 - 2.90 08/28 15:21 :00 [facility] HEMATOLOGY PROFILES Abs Monocytes 0.23 x10(9)/L 0.30 - 0.90 08/28 15:21 :00 [facility] HEMATOLOGY PROFILES Abs Eosinophils 0.12 x10(9)/L 0.05 - 0.50 08/28 15:21 :00 [facility] HEMATOLOGY PROFILES Abs Basophils 0.03 x10(9)/L 0.00 - 0.30 08/28 15:21 :00 [facility] HEMATOLOGY PROFILES Abs Immature Granulocytes 0.02 x10(9)/L 0.00 - 0.03 08/28 15:21 :00 [facility] XR Spine Lumbosacra l XR Spine Lumbosacral XR General Diagnostic Accession # Exam Date/Time Procedure Ordering Provider [id number] 08/29/2023 13:41 CDT XR Spine Lumbosacra l Flavio BRANDON, Woodrow Reason For Exam (XR Spine Lumbosacra l) S/P L2-3 TLIF and L2-5 instrument ed fusion Report EXAMINATIO N: XR Spine Lumbosacra l INDICATION : S/P L2-3 TLIF and L2-5 instrument ed fusion VIEWS: 2 COMPARISON : CT lumbar spine dated 08/11/2023. FINDINGS: Interval postoperat opal changes of L3-S1 posterior spinal fixation with interbody grafts at L3-L4 and L5-S1 noted. There is no evidence of fracture of the hardware. No evidence of fracture within the spine. Similar grade 1 anterolist hesis of L4 on L5 and mild anterolist hesis of L3 on L4. The bowel pattern is nonspecifi c. IMPRESSION : Interval postoperat opal changes of L3-S1 posterior spinal fixation without evidence of immediate complicati ons. I have personally reviewed the images and attest to the contents of this report. * * *Final Report* * * Electronic ally Signed by: Chelsea Cox MD Signed on: 08/29/23 14:08/28 13:35 :00 [facility] GENERAL CHEMISTRY Sodium 136 mmol/L 136 - 145 08/26 14:15 :00 [facility] GENERAL CHEMISTRY Potassium 4.6 mmol/L 3.5 - 5.1 08/26 14:15 :00 [facility] GENERAL CHEMISTRY Chloride 99 mmol/L 98 - 107 08/26 14:15 :00 [facility] GENERAL CHEMISTRY CO2 28 mmol/L 22 - 29 08/26 14:15 :00 [facility] GENERAL CHEMISTRY Glucose Lvl 168 mg/dL 70 - 139 08/26 14:15 :00 [facility] GENERAL CHEMISTRY BUN 19 mg/dL 8 - 23 08/26 14:15 :00 [facility] CHEMISTRY Creatinine, standardized 1.15 mg/dL 0.70 - 1.20 08/26 14:15 :00 Interpretive Data: Gltomi-lk-gdm e transgender patients on testosterone therapy should have results assessed using the male reference range. Yxce-ax-ycuxm e transgender patients on hormone-modul ating therapy clinical judgment is advisedfor assessment. [facility] GENERAL CHEMISTRY Calcium 9.3 mg/dL 8.6 - 10.2 08/26 14:15 :00 [facility] CHEMISTRY Alkaline Phosphatase 55 units/L 40 - 129 08/26 14:15 :00 Interpretive Data: Normal range for plasma alkaline phosphatase in females 20 years or older: 35-104 U/L according to mechanical apprentice' s instructions 35-129 U/L according to data analysis on adult females who presented to [facility] in 2021 without a significant diagnosis Clinical judgement is advised. Zfsiyi-al-wtn e transgender patients on testosterone therapy should have results assessed using the male reference range. Iigb-kf-okytp e transgender patients on hormone-modul ating therapy clinical judgment is advisedfor assessment. [facility] CHEMISTRY AST-SGOT 32 units/L 08/26 14:15 :00 [facility] CHEMISTRY ALT-SGPT 28 units/L 10 - 50 08/26 14:15 :00 [facility] CHEMISTRY T Bili 0.46 mg/dL 0.00 - 1.60 08/26 14:15 :00 [facility] GENERAL CHEMISTRY Total Protein 6.3 g/dL 6.6 - 8.7 08/26 14:15 :00 [facility] CHEMISTRY Albumin 3.5 g/dL 3.5 - 5.2 08/26 14:15 :00 [facility] CHEMISTRY Estimated GFR for Adults 66 mL/min/1.7 3m 08/26 14:15 :00 Result Comment: The eGFR was estimated using the CKD-EPI equation. The National Kidney Foundation recommends that all clinical labs utilize this equation: Lilia , Suresh LA, Essence CH, et al. A new equation to estimate glomerular filtration rate. Samina Bar Useful Or Busser Med. 2009;150(9):6 04-612. For calculation reference see https://www.[facility].org/pro fessionals/kd oqi/gfr_calcu taywendy Interpretive Data: Changed to CKD-EPI 2020 on 2020. [facility] GENERAL CHEMISTRY Anion gap 14 mmol/L 0 - 20 08/26 14:15 :00 [facility] CHEMISTRY Estimated GFR for peds Not calculated 08/26 14:15 :00 Interpretive Data: The estimated GFR was calculated using the Sayra brunson Wolff equation (2009) . Reference: Pediatric GFR calculator at National Kidney Foundation Website. [facility] GENERAL CHEMISTRY Sodium 135 mmol/L 136 - 145 08/25 10:45 :00 [facility] GENERAL CHEMISTRY Potassium 4.5 mmol/L 3.5 - 5.1 08/25 10:45 :00 [facility] GENERAL CHEMISTRY Chloride 103 mmol/L 98 - 107 08/25 10:45 :00 [facility] GENERAL CHEMISTRY CO2 22 mmol/L 22 - 29 08/25 10:45 :00 [facility] GENERAL CHEMISTRY Glucose Lvl 212 mg/dL 70 - 139 08/25 10:45 :00 [facility] GENERAL CHEMISTRY BUN 22 mg/dL 8 - 23 08/25 10:45 :00 [facility] CHEMISTRY Creatinine, standardized 1.20 mg/dL 0.70 - 1.20 08/25 10:45 :00 Interpretive Data: Froqve-gb-cwi e transgender patients on testosterone therapy should have results assessed using the male reference range. Bldt-ch-tmlhy e transgender patients on hormone-modul ating therapy clinical judgment is advisedfor assessment. [facility] GENERAL CHEMISTRY Calcium 8.9 mg/dL 8.6 - 10.2 08/25 10:45 :00 [facility] CHEMISTRY Alkaline Phosphatase 53 units/L 40 - 129 08/25 10:45 :00 Interpretive Data: Normal range for plasma alkaline phosphatase in females 20 years or older: 35-104 U/L according to mechanical apprentice' s instructions 35-129 U/L according to data analysis on adult females who presented to [facility] in 2021 without a significant diagnosis Clinical judgement is advised. Nhpkrl-wm-hnj e transgender patients on testosterone therapy should have results assessed using the male reference range. Zypa-wl-fwcxy e transgender patients on hormone-modul ating therapy clinical judgment is advisedfor assessment. [facility] CHEMISTRY AST-SGOT 47 units/L 08/25 10:45 :00 [facility] CHEMISTRY ALT-SGPT 33 units/L 10 - 50 08/25 10:45 :00 [facility] CHEMISTRY T Bili 0.69 mg/dL 0.00 - 1.60 08/25 10:45 :00 [facility] CHEMISTRY Total Protein 6.2 g/dL 6.6 - 8.7 08/25 10:45 :00 [facility] CHEMISTRY Albumin 3.6 g/dL 3.5 - 5.2 08/25 10:45 :00 [facility] CHEMISTRY Estimated GFR for Adults 63 mL/min/1.7 3m 08/25 10:45 :00 Result Comment: The eGFR was estimated using the CKD-EPI equation. The National Kidney Foundation recommends that all clinical labs utilize this equation: Lilia , Suresh LA, Essence CH, et al. A new equation to estimate glomerular filtration rate. Samina Bar Use[employer] Med. 2009;150(9):6 04-612. For calculation reference see https://www.[facility].org/pro fessionals/kd oqi/gfr_calcu latwendy Interpretive Data: Changed to CKD-EPI 2020 on 2020. [facility] GENERAL CHEMISTRY Anion gap 14 mmol/L 0 - 20 08/25 10:45 :00 [facility] CHEMISTRY Estimated GFR for peds Not calculated 08/25 10:45 :00 Interpretive Data: The estimated GFR was calculated using the Sayra Wolff equation (2009) . Reference: Pediatric GFR calculator at National Kidney Foundation Website. [facility] GENERAL CHEMISTRY Sodium 135 mmol/L 136 - 145 08/24 11:13 :00 [facility] GENERAL CHEMISTRY Potassium 4.1 mmol/L 3.5 - 5.1 08/24 11:13 :00 [facility] GENERAL CHEMISTRY Chloride 101 mmol/L 98 - 107 08/24 11:13 :00 [facility] GENERAL CHEMISTRY CO2 24 mmol/L 22 - 29 08/24 11:13 :00 [facility] GENERAL CHEMISTRY Glucose Lvl 218 mg/dL 70 - 139 08/24 11:13 :00 [facility] GENERAL CHEMISTRY BUN 24 mg/dL 8 - 23 08/24 11:13 :00 [facility] CHEMISTRY Creatinine, standardized 1.18 mg/dL 0.70 - 1.20 08/24 11:13 :00 Interpretive Data: Gnpqrt-ez-daw e transgender patients on testosterone therapy should have results assessed using the male reference range. Vpki-ui-wwdkc e transgender patients on hormone-modul ating therapy clinical judgment is advisedfor assessment. [facility] CHEMISTRY Calcium 8.8 mg/dL 8.6 - 10.2 08/24 11:13 :00 [facility] CHEMISTRY Alkaline Phosphatase 58 units/L 40 - 129 08/24 11:13 :00 Interpretive Data: Normal range for plasma alkaline phosphatase in females 20 years or older: 35-104 U/L according to mechanical apprentice' s instructions 35-129 U/L according to data analysis on adult females who presented to [facility] in 2021 without a significant diagnosis Clinical judgement is advised. Gxrkmk-aw-vei e transgender patients on testosterone therapy should have results assessed using the male reference range. Fikk-uv-hwtnl e transgender patients on hormone-modul ating therapy clinical judgment is advisedfor assessment. [facility] CHEMISTRY AST-SGOT 69 units/L 08/24 11:13 :00 [facility] CHEMISTRY ALT-SGPT 41 units/L 10 - 50 08/24 11:13 :00 [facility] CHEMISTRY T Bili 0.51 mg/dL 0.00 - 1.60 08/24 11:13 :00 [facility] GENERAL CHEMISTRY Total Protein 5.9 g/dL 6.6 - 8.7 08/24 11:13 :00 [facility] GENERAL CHEMISTRY Albumin 3.6 g/dL 3.5 - 5.2 08/24 11:13 :00 [facility] CHEMISTRY Estimated GFR for Adults 64 mL/min/1.7 3m 08/24 11:13 :00 Result Comment: The eGFR was estimated using the CKD-EPI equation. The National Kidney Foundation recommends that all clinical labs utilize this equation: Lilia , Suresh LA, Essence CH, et al. A new equation to estimate glomerular filtration rate. Samina Bar Use[employer]uss[employer] Med. 2009;150(9):6 04-612. For calculation reference see https://www.[facility].org/pro fessionals/kd oqi/gfr_calcu susan Interpretive Data: Changed to CKD-EPI 2020 on 2020. [facility] CHEMISTRY Anion gap 14 mmol/L 0 - 20 08/24 11:13 :00 [facility] GENERAL CHEMISTRY Estimated GFR for peds Not calculated 08/24 11:13 :00 Interpretive Data: The estimated GFR was calculated using the B sonyaide Wolff equation (2009) . Reference: Pediatric GFR calculator at National Kidney Foundation Website. [facility] GENERAL CHEMISTRY Ca++ 1.11 mmol/L 1.12 - 1.30 08/24 11:13 :00 [facility] GENERAL CHEMISTRY Mg++ 0.44 mmol/L 0.43 - 0.61 08/24 11:13 :00 [facility] GENERAL CHEMISTRY Phosphorus 1.7 mg/dL 2.5 - 4.5 08/24 11:13 :00 [facility] GENERAL CHEMISTRY Alkaline Phosphatase 53 units/L 40 - 129 08/23 11:38 :00 Interpretive Data: Normal range for plasma alkaline phosphatase in females 20 years or older: 35-104 U/L according to mechanical apprentice' s instructions 35-129 U/L according to data analysis on adult females who presented to [facility] in 2021 without a significant diagnosis Clinical judgement is advised. Agcnxv-qk-rqs e transgender patients on testosterone therapy should have results assessed using the male reference range. Ebqf-hy-tvotn e transgender patients on hormone-modul ating therapy clinical judgment is advisedfor assessment. [facility] GENERAL CHEMISTRY AST-SGOT 90 units/L 08/23 11:38 :00 [facility] GENERAL CHEMISTRY ALT-SGPT 46 units/L 10 - 50 08/23 11:38 :00 [facility] GENERAL CHEMISTRY T Bili 0.33 mg/dL 0.00 - 1.60 08/23 11:38 :00 [facility] GENERAL CHEMISTRY Total Protein 5.7 g/dL 6.6 - 8.7 08/23 11:38 :00 [facility] GENERAL CHEMISTRY Albumin 3.6 g/dL 3.5 - 5.2 08/23 11:38 :00 [facility] HEMATOLOGY PROFILES WBC 9.80 x10(9)/L 3.50 - 10.50 08/23 11:38 :00 [facility] HEMATOLOGY PROFILES RBC 4.12 x10(12)/L 4.32 - 5.72 08/23 11:38 :00 [facility] HEMATOLOGY PROFILES HGB 12.0 g/dL 13.5 - 17.5 08/23 11:38 :00 Interpretive Data: Ynlmfe-ra-smm e transgender patients on testosterone therapy should have results assessed using the male reference range. Fykd-xw-jmslp e transgender patients on hormone-modul ating therapy clinical judgment is advisedfor assessment. [facility] HEMATOLOGY PROFILES HCT 35.8 % 38.8 - 50.0 08/23 11:38 :00 Interpretive Data: Krmcie-xo-nuv e transgender patients on testosterone therapy should have results assessed using the male reference range. Ejoc-uv-klqsy e transgender patients on hormone-modul ating therapy clinical judgment is advisedfor assessment. [facility] HEMATOLOGY PROFILES MCV 86.9 fL 81.2 - 95.1 08/23 11:38 :00 [facility] HEMATOLOGY PROFILES MCH 29.1 pg 26.0 - 33.0 08/23 11:38 :00 [facility] HEMATOLOGY PROFILES MCHC 33.5 g/dL 32.0 - 36.0 08/23 11:38 :00 [facility] HEMATOLOGY PROFILES RDW CV 13.6 % 11.8 - 15.6 08/23 11:38 :00 [facility] HEMATOLOGY PROFILES RDW SD 42.9 fL 35.1 - 43.9 08/23 11:38 :00 [facility] HEMATOLOGY PROFILES PLT 182 x10(9)/L 150 - 450 08/23 11:38 :00 [facility] HEMATOLOGY PROFILES MPV 10.7 8.0 - 12.0 08/23 11:38 :00 [facility] HEMATOLOGY PROFILES % Nucleated RBCs 0.0 % 08/23 11:38 :00 [facility] HEMATOLOGY PROFILES Absolute Nucleated RBCs 0.0 x10(9)/L 0.0 - 0.0 08/23 11:38 :00 Interpretive Data: Normal values not established in patients less than 18 years old. [facility] HEMATOLOGY PROFILES % Neutrophils 85.4 % 08/23 11:38 :00 [facility] HEMATOLOGY PROFILES % Lymphocytes 7.4 % 08/23 11:38 :00 [facility] HEMATOLOGY PROFILES % Monocytes 6.7 % 08/23 11:38 :00 [facility] HEMATOLOGY PROFILES % Eosinophils 0.0 % 08/23 11:38 :00 [facility] HEMATOLOGY PROFILES % Basophils 0.1 % 08/23 11:38 :00 [facility] HEMATOLOGY PROFILES % Immature Granulocytes 0.40 % 0.02 - 0.42 08/23 11:38 :00 [facility] HEMATOLOGY PROFILES Absolute Granulocytes 8.36 x10(9)/L 1.70 - 7.00 08/23 11:38 :00 [facility] HEMATOLOGY PROFILES Abs Lymphocytes 0.73 x10(9)/L 0.90 - 2.90 08/23 11:38 :00 [facility] HEMATOLOGY PROFILES Abs Monocytes 0.66 x10(9)/L 0.30 - 0.90 08/23 11:38 :00 [facility] HEMATOLOGY PROFILES Abs Eosinophils 0.00 x10(9)/L 0.05 - 0.50 08/23 11:38 :00 [facility] HEMATOLOGY PROFILES Abs Basophils 0.01 x10(9)/L 0.00 - 0.30 08/23 11:38 :00 [facility] HEMATOLOGY PROFILES Abs Immature Granulocytes 0.04 x10(9)/L 0.00 - 0.03 08/23 11:38 :00 [facility] MISC CHEMISTRY Hemoglobin A1c 8.2 % 4.0 - 5.6 08/23 11:38 :00 Interpretive Data: Interpretativ e Information: Hemoglobin A1C (HbA1c) Comment Tab: [place] [employer] criteria: 5.6% Normal 5.7 to 6.4 % Prediabetes 6.5% Diabetes Repeat hemoglobin A1c testing or follow-up with an alternative test such as the 2-hour OGTT is required prior to the diagnosis of diabetes. Prediabetes: Patient counseling and commitment to a course of lifestyle modification is recommended with follow-up testing 3-6 months later. Diabetes mellitus: HbA1c correlates highly with average daily glycemia over the preceding 60-90 day period. While g ood control is generally considered to be HbA1c < 7.0%, individual factors influence HbA1c goals and attained results, which providers should take into account when using HbA1c in patient management and counseling. In particular, HbA1c does not reliably capture frequency and severity of treatment-rel ated hypoglycemia, which may obligate relaxation of HbA1c goals for the patient. Note: Any condition that shortens erythrocyte survival or decreases mean erythrocyte age will lower HbA1c results regardless of the assay method. HbA1c results after blood transfusion should be interpreted with caution. REFERENCES: The Diabetes Control and Complications Trial Research Group: The effect of intensive treatment of diabetes on the development and progression of long-term complications in insulin-depen dent diabetes mellitus. N Engl J Med 329:977-86, 1992 National Glycohemoglob in Standardizati on Program (NGSP) website: http://www.ng sp.org [facility] CHEMISTRY Estimated Average Glucose 189 mg/dL 08/23 11:38 :00 Interpretive Data: Interpretativ e Information: Estimated Average Glucose (eAG) Comment Tab: The table below shows the relationship between HbA1c and estimated average glucose (eAG). These data are presented only as a general guide for patient education. HbA1c (%) eAG (mg/dL) 4 70 5 97 6 126 7 154 8 183 9 212 10 240 11 269 12 298 Formula: eAG = 28.7 x HbA1c 46.7 REFERENCE: Juan J CONCEPCION, et al: Translating the A1c Assay into Estimated Average Glucose Values. Diabetes Care 31:1473-8, 2008 [facility] HEMATOLOGY PROFILES HGB 14.9 g/dL 13.5 - 17.5 08/23 03:09 :00 Interpretive Data: Xhxbnp-ck-mgi e transgender patients on testosterone therapy should have results assessed using the male reference range. Ghhy-vi-hwvcf e transgender patients on hormone-modul ating therapy clinical judgment is advisedfor assessment. [facility] XR C-Arm XR C-Arm XR General Diagnostic Accession # Exam Date/Time Procedure Ordering Provider [id number] 08/23/2023 19:21 CDT XR C-Arm Beatrice BRANDON, Joesph Rodriguez Reason For Exam (XR C-Arm) spinal fusion Report OR C-arm case. Exam performed. No report to be issued. I have personally reviewed the images and attest to the contents of this report. * * *Final Report* * * Electronic ally Signed by: Jose [email or web address], PS360 Signed on: 08/24/23 08:10 08/22 17:03 :00 [facility] XR C-Arm XR C-Arm XR General Diagnostic Accession # Exam Date/Time Procedure Ordering Provider [id number] 08/23/2023 15:31 CDT XR C-Arm Beatrice BRANDON, Joesph Rodriguez Reason For Exam (XR C-Arm) spinal fusion Report OR C-arm case. Exam performed. No report to be issued. I have personally reviewed the images and attest to the contents of this report. * * *Final Report* * * Electronic ally Signed by: MetaFLO, PS360 Signed on: 08/24/23 08:21 08/22 15:00 :00 [facility] COAGULATIO N PT 13.4 s 9.4 - 12.5 08/21 16:39 :00 [facility] COAGULATIO N INR 1.2 0.9 - 1.2 08/21 16:39 :00 Interpretive Data: Suggested therapeutic INR range for stable oral anticoagulati on: Optimal Therapeutic INR Range 2.0-3.0 Therapeutic Range for High-Risk Groups (antiphoshpol ipid syndrome with previous thrombosis) 2.0-3.0 DVT of the leg 2.0-3.0 PE 2.0-3.0 Patients with AF and Stable Coronary Artery Disease 2.0-3.0 Bioprostheti c valve in the mitral position 2.0-3.0 Mechanical mitral valve or additional risk factors 2.5-3.5 Prevention of Recurrent VTE in Women prophylaxis for 6 weeks with prophylactic- or intermediate- dose LMWH or warfarin targeted at INR 2.0 or 3.0 rather than no prophylaxis For additional guidance see: Jaimie GH, Suraj EA, Carlos M, Fidelina DD, Schu n rln HJ; [place] [employer] Antithromboti c Therapy and Prevention of Thrombosis Panel. Executive summary: Antithromboti c Therapy and Prevention of Thrombosis, 9th Ed: [place] [employer] Evidence-Base d Clinical Practice Guidelines. Chest. 2012 Apr; 141(2 Suppl):7S-47S . doi: 10.1378/chest .1412S3 [facility] COAGULATIO N PTT 34.4 s 25.1 - 36.5 08/21 16:39 :00 Interpretive Data: Recommendatio ns for anticoagulant therapeutic ranges: Unfractionate d Heparin: Please order the anti-Xa assay. Target ranges and medication management recommendatio ns are based on the anti-Xa assay and posted in [employer] (see Medication Management-Ad ult Heparin Nomogram). Argatroban: Target ranges and medication management recommendatio ns are posted in [employer] (see Medication Management- Adult Argatroban Nomogram). Low molecular weight heparin or danaparoid monitoring: Please order the anti-Xa assay. Please contact the Pharmacy or the Clinical Pathology Service for additional questions. [facility] HEMATOLOGY PROFILES WBC 6.25 x10(9)/L 3.50 - 10.50 08/20 08:22 :00 [facility] HEMATOLOGY PROFILES RBC 5.15 x10(12)/L 4.32 - 5.72 08/20 08:22 :00 [facility] HEMATOLOGY PROFILES HGB 15.1 g/dL 13.5 - 17.5 08/20 08:22 :00 Interpretive Data: Mrjuim-zn-uss e transgender patients on testosterone therapy should have results assessed using the male reference range. Zmap-jo-mricw e transgender patients on hormone-modul ating therapy clinical judgment is advisedfor assessment. [facility] HEMATOLOGY PROFILES HCT 44.8 % 38.8 - 50.0 08/20 08:22 :00 Interpretive Data: Iczigd-ks-tov e transgender patients on testosterone therapy should have results assessed using the male reference range. Uatc-uq-hsumw e transgender patients on hormone-modul ating therapy clinical judgment is advisedfor assessment. [facility] HEMATOLOGY PROFILES MCV 87.0 fL 81.2 - 95.1 08/20 08:22 :00 [facility] HEMATOLOGY PROFILES MCH 29.3 pg 26.0 - 33.0 08/20 08:22 :00 [facility] HEMATOLOGY PROFILES MCHC 33.7 g/dL 32.0 - 36.0 08/20 08:22 :00 [facility] HEMATOLOGY PROFILES RDW CV 13.6 % 11.8 - 15.6 08/20 08:22 :00 [facility] HEMATOLOGY PROFILES RDW SD 42.7 fL 35.1 - 43.9 08/20 08:22 :00 [facility] HEMATOLOGY PROFILES PLT 162 x10(9)/L 150 - 450 08/20 08:22 :00 [facility] HEMATOLOGY PROFILES MPV 10.8 8.0 - 12.0 08/20 08:22 :00 [facility] [facility] % Nucleated RBCs 0.0 % 08/20 08:22 :00 [facility] HEMATOLOGY PROFILES Absolute Nucleated RBCs 0.0 x10(9)/L 0.0 - 0.0 08/20 08:22 :00 Interpretive Data: Normal values not established in patients less than 18 years old. [facility] HEMATOLOGY PROFILES % Neutrophils 61.8 % 08/20 08:22 :00 [facility] HEMATOLOGY PROFILES % Lymphocytes 27.8 % 08/20 08:22 : [facility] HEMATOLOGY PROFILES % Monocytes 7.0 % 08/20 08:22 :00 [facility] HEMATOLOGY PROFILES % Eosinophils 1.8 % 08/20 08:22 :00 [facility] HEMATOLOGY PROFILES % Basophils 0.8 % 08/20 08:22 :00 [facility] HEMATOLOGY PROFILES % Immature Granulocytes 0.80 % 0.02 - 0.42 08/20 08:22 :00 [facility] HEMATOLOGY PROFILES Absolute Granulocytes 3.86 x10(9)/L 1.70 - 7.00 08/20 08:22 :00 [facility] HEMATOLOGY PROFILES Abs Lymphocytes 1.74 x10(9)/L 0.90 - 2.90 08/20 08:22 :00 [facility] HEMATOLOGY PROFILES Abs Monocytes 0.44 x10(9)/L 0.30 - 0.90 08/20 08:22 :00 [facility] HEMATOLOGY PROFILES Abs Eosinophils 0.11 x10(9)/L 0.05 - 0.50 08/20 08:22 :00 [facility] HEMATOLOGY PROFILES Abs Basophils 0.05 x10(9)/L 0.00 - 0.30 08/20 08:22 :00 [facility] HEMATOLOGY PROFILES Abs Immature Granulocytes 0.05 x10(9)/L 0.00 - 0.03 08/20 08:22 :00 [facility] XR EOS Full Spine XR EOS Full Spine XR General Diagnostic Accession # Exam Date/Time Procedure Ordering Provider [id number] 08/11/2023 11:36 CDT XR EOS Full Spine Yuri Samano Reason For Exam (XR EOS Full Spine) lumbar back pain Report EXAMINATIO N: XR EOS Full Spine INDICATION : lumbar back pain VIEWS: 2 COMPARISON : August 11, 2023 Findings/ impression : Fine osseous detail is limited. Please refer to dictated report of the cervical spine today's date. Posterior fusion L4-L5 is identified with interverte bral spacer. Degenerati ve disc changes are present at L2-L3 L3-L4. Mild degenerati ve changes mid thoracic spine is present. I have personally reviewed the images and attest to the contents of this report. * * *Final Report* * * Electronic ally Signed by: Jah BRANDON, Lucas Greene Signed on: 08/11/23 12:31 08/10 11:03 :21 [facility] CT Spine Lumbar CT Spine Lumbar CT Scan/CT Angio Accession # Exam Date/Time Procedure Ordering Provider [id number] 08/11/2023 11:[address] Spine Lumbar Yuri Samano Reason For Exam (CT Spine Lumbar) low back pain Report EXAMINATIO N: CT lumbar spine without IV contrast INDICATION : low back pain COMPARISON : CT lumbar spine February 21, 2023 TECHNIQUE: Spiral acquisitio n of images of the lumbar spine were obtained from the lower thoracic to the mid sacral levels. Sagittal and coronal 2D reformatte d series were provided by the [employer] . The CT scan was acquired using radiation reduction techniques , such automated exposure control, adjustment of the mA and/or kV according to the patient's size and use of iterative reconstruc tion techniques . FINDINGS: ALIGNMENT: Again noted grade 1 anterolist hesis of L3-L4 and L4-L5. VERTEBRAE: Surgical changes of L3 L5 laminectom ies and L4-L5 posterior spinal fusion with interverte bral disc spacer are again noted. No device fracture or periprosth etic loosening identified . Incomplete fusion of L5-S1 vertebrae is seen. The remaining vertebral body heights are preserved. Subcortica l cystic changes of L3 anterior superior corner is seen. Multilevel degenerati ve changes of the lumbar spine are seen. Multilevel facet osteoarthr itis are also noted. Asymmetric widening of the L2-L3 interspino us space is seen. T12-L1 and L1-L2: There is no central canal or neural foraminal narrowing. L2-L3: Diffuse disc bulge with superimpos ed central disc extrusion, associated with thickened ligamentum flavum, which indents the thecal sac and results in moderate to severe spinal canal narrowing. Moderate right and moderate to severe left neural foraminal narrowing is seen. L3-L4: Disc bulge is noted, which indents thecal sac and slightly results in mild spinal canal narrowing. Mild bilateral neural foraminal narrowing is noted, right greater than the left. L4-L5: There is no central spinal canal narrowing. Severe right and moderate left neuroforam inal narrowing is seen. L5-S1: There is no central canal narrowing. Moderate to severe left neuroforam inal narrowing is seen. SACROILIAC JOINTS: Osteoarthr itic changes of the sacroiliac joints are seen. ADDITIONAL FINDINGS: Unremarkab le IMPRESSION : Interval worsening of degenerati ve changes of the lumbar spine with moderate to severe spinal canal narrowing at L2-L3 level. CT Scan/CT Angio Report Severe right neuroforam inal narrowing at L4-L5. Moderate to severe left neuroforam inal narrowing at L2-L3 and L5-S1 level. I have personally reviewed the images and attest to the contents of this report. * * *Final Report* * * Electronic ally Signed by: Caio BRANDON, Danae Nielson Signed on: 08/11/23 13:12 08/10 10:51 :11 [facility] XR Spine Cervical w/ Flext and/or Ext XR Spine Cervical w/ Flext and/or Ext XR General Diagnostic Accession # Exam Date/Time Procedure Ordering Provider [id number] 08/11/2023 09:03 CDT XR Spine Cervical w/ Yuri Samano Flext and/or Ext Reason For Exam (XR Spine Cervical w/ Flext and/or Ext) C3-T2 fusion Report EXAMINATIO N: XR Spine Cervical w/ Flext and/or Ext, XR Spine Thoracic INDICATION : C3-T2 fusion VIEWS: 4 view cervical spine, 3 view thoracic spine COMPARISON : 04/07/2023 FINDINGS: Stable posterior fusion and decompress ion C3-T2 with stable ACDF C4-C6 with mature osseous fusion. Stable severe disc degenerati on C3-4. Stable slight anterolist hesis C2-3. No dynamic instabilit y in the cervical spine with flexion and extension. Thoracic vertebral bodies exhibit findings of diffuse idiopathic skeletal hyperostos is without loss of vertebral body height or malalignme nt. Lung parenchyma is unremarkab le. IMPRESSION : Stable postsurgic al and degenerati ve changes. I have personally reviewed the images and attest to the contents of this report. * * *Final Report* * * Electronic ally Signed by: Kristopher Moreno MD Signed on: 08/11/23 09:14 08/10 08:46 :37 [facility] XR Spine Thoracic XR Spine Thoracic XR General Diagnostic Accession # Exam Date/Time Procedure Ordering Provider [id number] 08/11/2023 09:03 CDT XR Spine Thoracic Yuri Samano Reason For Exam (XR Spine Thoracic) C3-T2 fusion Report EXAMINATIO N: XR Spine Cervical w/ Flext and/or Ext, XR Spine Thoracic INDICATION : C3-T2 fusion VIEWS: 4 view cervical spine, 3 view thoracic spine COMPARISON : 04/07/2023 FINDINGS: Stable posterior fusion and decompress ion C3-T2 with stable ACDF C4-C6 with mature osseous fusion. Stable severe disc degenerati on C3-4. Stable slight anterolist hesis C2-3. No dynamic instabilit y in the cervical spine with flexion and extension. Thoracic vertebral bodies exhibit findings of diffuse idiopathic skeletal hyperostos is without loss of vertebral body height or malalignme nt. Lung parenchyma is unremarkab le. IMPRESSION : Stable postsurgic al and degenerati ve changes. I have personally reviewed the images and attest to the contents of this report. * * *Final Report* * * Electronic ally Signed by: Kristopher Moreno MD Signed on: 08/11/23 09:14 08/10 08:46 :37 [facility] Consultation Notes Results Value Date Source Phys Med and Rehab Consult Note Chief Co mplaint Back pain Reason for Consultation Disposition History of Present Illness 73 year old who presented for elective surgery since he is continuing to have right-sided low back pain, with right groin pain and right anterior thigh pain. Denies, numbness/tingling in R leg, but has baseline numbness on L leg. No complaints in upper extremity patient seen and examined at bedside on 10/24, patient had L2-5 fusion expiration. L2 hardware removal. Image guided T10-L1 instrumentation. Replacement of the L2 pedicle screws with longer screws, globus Creo amp, 6.5 x 60. Reduction of L1-2 kyphotic deformity. T10-L2 arthrodesis. L1, L2 laminectomy for decompression of thecal sac. Patient had some postoperative ileus, but did have a bowel movement on the night of 10/25. Patient seen and examined at bedside by rehabilitation consult service. Patient states he is doing well. He states that his back pain is improving, now just feels sore. He states that his belly still feels full and he is uncomfortable, he was able to have bowel movement last night with his enema. He states a lot of the stool was liquid that he was able to get a little bit of solid stool out. However, he still feels like he can have more bowel movements. Patient states that he has some numbness inside of his right hand in the fourth and fifth finger, but that has been there even before the surgery. Patient states that he feels like his right side is weaker than the left side, but that was also there before the surgery. Patient denies any chest pain, shortness of breath. 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 6 Clicks Activity Pt age for 6 click activity assessment : 5 yrs or older Put on and take off regular UE clothes : A lot (2 points) Bathe (includes wash, rinse, dry) : A lot (2 points) Toilet (commode, bedpan, urinal) : A lot (2 points) Put on and take off regular LE clothes : A lot (2 points) Take care of personal grooming : None (4 points) Eat meals : None (4 points) 6 Clicks Activity Raw Score : 16 [1] Sitting Balance Static : SUP Sitting Balance Dynamic : SUP Standing Balance Static : CG [2] Rolls In Bed : MOD Supine To Sit : MOD Sit to Stand : MOD Stand to Sit : MOD [3] 6 Clicks Cognition Pt age for 6 click cognitive assessment : 18 yrs or older Understanding 10-15min speech or presentation? : None (4 points) Understanding familiar people during ordinary conversations? : None (4 points) Remembering to take medications at appropriate time? : None (4 points) Remembering where things were placed or put away (keys)? : None (4 points) Remembering a list of 4 or 5 errands without writing it down? : None (4 points) Taking care of complicated tasks like managing a checking account? : None (4 points) 6 Clicks Cognition Raw Score : 24 [4] Physical Exam Vitals and Measurements T: 37.0 C TMIN: 36.3 C TMAX: 37.0 ?C HR: 71 RR: 18 BP: 129/74 SpO2: 95% Physical Exam: General: no acute distress HEENT: oral mucosa moist, no scleral icterus b/l pupils equal CV: no edema in bilateral lower extremities Resp: non labored, symmetrical expansion Abd: Tender to palpation, no guarding. No rebound. Distended, full of gas. Hypoactive bowel sounds. Skin: warm, dry Sensory: intact to light touch Psych: cooperative, appropriate mood and affect. MSK Shoulder ABduction: R 5/5 L 5/5 Elbow flexion: R 5/5 L 5/5 Elbow extension: R 5/5 L 5/5 Wrist extension: R 4/5 L 5/5 Finger flexion: R 4/5 L 5/5 Finger abduction: R 4/5 L 5/5 Hip Flexors: R 4/5 L 5/5 Knee Extensors: R 5/5 L 5/5 Knee Flexors: R 5/5 L 5/5 Ankle Dorsiflex: R 5/5 L 5/5 Ankle Planterflex: R 5/5 L 5/5 Assessment/Plan L1-2 kyphotic deformity reduction T10-L2 arthrodesis L1, L2 laminectomy for decompression of thecal sac Replacement of L2 pedicle screws with longer screws L2 hardware removal Image guided T10-L1 instrumentation Ileus Lumbar stenosis Back pain Neuropathic pain CKD (chronic kidney disease) Diabetes Diabetic peripheral neuropathy Hyperlipemia Osteoarthritis Prostate hypertrophy Restless leg syndrome Acute Medical Recommendations: Continue with bowel regimen of MiraLAX and doc senna, recommend the following changes: Add simethicone 80 mg 3 times daily scheduled instead of prn, give one-time dose of lactulose 20 g, check magnesium level and replace appropriately to greater than 2 mEq/L, add daily tablet supplement of lactobacillus acidophilus. Please encourage oral hydration as tolerated and recommend patient to be out of bed, at discretion of surgeon, and walking as tolerated to help encourage bowel movement. If patient does not have a significant bowel movement by the afternoon, then consider bisacodyl suppository. Had discussion with patient that we would recommend inpatient rehabilitation; however, patient feels that he would prefer to go home if his bowel movements could become regular. He lives [place] away from [place], on the [place] side and if he needs to go to an inpatient rehabilitation facility then he would prefer to go there. If patient does decide to go to inpatient rehabilitation facility, we will work with disease case manager to find him a facility that is close to home. Recommend inpatient rehab for the following: Functional needs: Patient will need director of labor and delivery oversight daily to help manage postoperative ileus and develop a bowel regimen that we will prevent a bowel obstruction. [employer] will also be able to manage patient's pain with medication as he progresses in rehabilitation, daily wound checks can also be performed by physician. Physician will continue to monitor for postoperative anemia with weekly labs. Patient will also benefit from intensive rehabilitation and will be able to tolerate 3 hours of therapy a day prior to discharge home. Physical therapy for ROM strengthening, mobilization, and fall minimization. Occupational therapy for coordination, transfers, and ADL's. Dispo: After inpatient rehab, goal is to discharge to home with family. Thank you for this consult, please let us know if you have any questions. Patient staffed and examined with my attending physician Car Marroquin MD PGY-4, Physical Medicine and Rehabilitation Problem List/Past Medical History Ongoing CKD (chronic kidney disease) Diabetes Diabetic peripheral neuropathy History of lumbar spinal fusion Hyperlipemia Osteoarthritis Prostate hypertrophy Restless leg syndrome S/P cervical spinal fusion Type 2 diabetes mellitus Historical No qualifying data Procedure/Surgical History L4-5 fusion exploration. L2-3 Mckeon-Swift osteotomy for correction of sagittal deformity. (08/23/2023) C3-4 laminectomy. Right-sided C7-T1 laminectomy and C8 foraminotomies; C3-4 and C7-T2 arthrodesis. Right-sided C7-T1 synovial cyst resection (02/18/2023) C4-6 ACDF 2007 L3-5 laminectomy L3-5 laminectomy Laminectomy L2, L3. L4-5 fusion Medications Inpatient acetaminophen 500 mg oral tablet, 1000 mg= 2 Tablet(s), Oral, q6h, PRN acetaminophen-oxycodone 325 mg-5 mg oral tablet, 1 Tablet(s), Oral, q4h, PRN buPROPion 24 hour extended release, 150 mg= 1 Tablet(s), Oral, Daily docusate-senna 50 mg-8.6 mg oral tablet, 2 Tablet(s), Oral, bid Farxiga, 10 mg= 1 Tablet(s), Oral, qAM fenofibrate 145 mg oral tablet, 145 mg= 1 Tablet(s), Oral, Daily finasteride, 5 mg= 1 Tablet(s), Oral, Daily gabapentin, 900 mg= 3 capsule(s), Oral, tid gemfibrozil, 600 mg= 1 Tablet(s), Oral, bid AC Lidocaine 1% inj solution (PF), 10 mg= 1 mL, IntraDermal, As Directed, PRN Lovenox, 40 mg= 0.4 mL, Subcutaneous, At Bedtime methocarbamol, 500 mg= 1 Tablet(s), Oral, q6h MiraLax, 17 g= 1 Packet, Oral, Daily NS 1,000 mL, 1000 mL, IV oxyCODONE 5 mg oral tablet, 10 mg= 2 Tablet(s), Oral, q6h, PRN pramipexole, 0.25 mg= 1 Tablet(s), Oral, bid simethicone, 80 mg= 1 Tablet(s), Oral, qid, PRN zolpidem 5 mg oral tablet, 5 mg= 1 Tablet(s), Oral, At Bedtime, PRN Home bisacodyl 10 mg rectal suppository, 10 mg= 1 Supp, Rectal, Daily buPROPion 150 mg/24 hours (XL) oral tablet, extended release, 150 mg= 1 Tablet(s), Oral, Daily Centrum Silver oral tablet, 1 Tablet(s), Oral, Daily cholecalciferol oral tablet, 1 Tablet(s), Oral, Daily cyclobenzaprine 5 mg oral tablet, 10 mg= 2 Tablet(s), Oral, tid, PRN Farxiga 10 mg oral tablet, 10 mg= 1 Tablet(s), Oral, qAM fenofibrate 145 mg oral tablet, 145 mg= 1 Tablet(s), Oral, Daily finasteride 5 mg oral tablet, 5 mg= 1 Tablet(s), Oral, Daily gabapentin 300 mg oral capsule, 900 mg= 3 capsule(s), Oral, tid, 11 refills gabapentin 600 mg oral tablet, 600 mg= 1 Tablet(s), Oral, tid gemfibrozil 600 mg oral tablet, 600 mg= 1 Tablet(s), Oral, bid AC glucose 4 g oral tablet, chewable, 16 g= 4 Tablet(s), Oral, As Indicated, PRN Glucose Meter, 1 Each, Blood Test, AC and Bedtime Glucose Test Strips, 1 Each, Blood Test, AC and Bedtime, 3 refills methocarbamol 500 mg oral tablet, 500 mg= 1 Tablet(s), Oral, q6h methocarbamol 500 mg oral tablet, 500 mg= 1 Tablet(s), Oral, q6h, 1 refills MiraLax oral powder for reconstitution, 17 g, Oral, Daily Percocet 10 mg-325 mg oral tablet, 1 Tablet(s), Oral, q6h, PRN pramipexole 0.125 mg oral tablet, 0.25 mg= 2 Tablet(s), Oral, bid Vitamin A oral capsule, 1 capsule(s), Oral, Daily Vitamin E oral capsule, 1 capsule(s), Oral, Daily zolpidem 5 mg oral tablet, 5 mg= 1 Tablet(s), Oral, At Bedtime, PRN Allergies metFORMIN (Upset stomach) Social History Smoking Status Never smoker Family History Noncontributory Lab Results CBC (10/26/23) WBC 9.50 Hgb L 11.5 Hct L 35.8 MCV 87.7 PLT 184 Auto Differential % nRBC 0.0 Absolute nRBC 0.0 % Neutrophils 80.0 Absolute Neut H 7.59 % Im Granulocyt .30 Absolute Im Gra 0.03 % Lymphocytes 10.7 % Monocytes 8.7 % Eosinophils 0.0 % Basophils 0.3 Comprehensive Metabolic Panel (10/26/23) Na+ 136 K+ 4.0 Cl- 104 CO2 23 Anion gap 13 GLU H 174 BUN H 24 Creat 1.2 Estimated GFR f L 64 Estimated GFR f Not calculated Ca 9.5 Alk Phos 88 AST H 75 ALT 37 T Bili 0.54 Total Protein 6.4 Alb 3.6 Hemolysis Index 0 Icteria Index 0 Lipemia Index 0 Diagnostic Results (10/27/2023 00:33 CDT XR Abdomen) EXAMINATION: XR Abdomen INDICATION: Upright for pneumoperitoneum VIEWS: 1 COMPARISON: None FINDINGS: TUBES/LINES/HARDWARE: Spinal fusion hardware projects over the thoracolumbar spine. BOWEL GAS: Aerated but non-dilated bowel throughout the partially visualized abdomen FREE AIR: None CALCIFICATIONS: No unusual calcification LUNG BASES: Clear BONES: No acute abnormalities IMPRESSION: No pneumoperitoneum. [5] [1] OT Evaluation Form; Ju Johnson OT 10/26/2023 14:55 CDT [2] OT Evaluation Form; Ju Johnson OT 10/26/2023 14:55 CDT [3] OT Evaluation Form; Ju Johnson OT 10/26/2023 14:55 CDT [4] OT Evaluation Form; Ju Johnson OT 10/26/2023 14:55 CDT [5] XR Abdomen; Meryl BRANDON, Brandon Newman 10/27/2023 00:33 CDT As the attending physician for this patient/resident encounter, I saw and evaluated the patient. I performed the armijo and critical portion of the service. I have reviewed the patient&acute;s past and present medical history as well as the exam findings with the resident. I agree with the findings and plan of care as documented in the above resident&acute;s note. Patient needs moderate assist for transitional movements, at present I agree with need for IPR. Per discussion with patient spouse patient has not been to IPR before following any of his back surgeries but they are interested this time. Kris Quinones DO 10/27/2023 Op/Procedure Note Indication for Surge richa Bernal is a 73-year-old with history of multiple previous lumbar and cervical spine surgeries. In August of this year, he underwent deformity correction with L2-5 instrumentation. Prior to that, he had undergone C3-T2 posterior cervical fusion. 1 month after surgery, while being worked up for diarrhea, he was noted to have a fracture at L1-2 consistent with proximal junctional failure. Imaging studies showed angular deformity of 25 degrees above the previous construct with fracture of the L2 vertebral body and severe stenosis. He presented with back and right leg pain approximately. Given his imaging findings and neurologic findings, I recommended extension of his fusion up to T10 with reduction of his deformity and T10-L2 arthrodesis. He was treated in a brace which helped somewhat prior to surgery. Preoperative Diagnosis History of L2-5 fusion for deformity correction. 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 L2 fracture. L1-2 stenosis. 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 L2 hardware removal. Image guided T10-L1 instrumentation. Replacement of the L2 pedicle screws with longer screws, globus Creo amp, 6.5 x 60. Reduction of L1-2 kyphotic deformity. T10-L2 arthrodesis. Use of Spacious image guidance. Use of motor and sensory evoked potentials. L1, L2 laminectomy for decompression of thecal sac Surgeon(s) Dr. Joesph Barron Space Officer Dr. Lamar Salcedo Anesthesia General endotracheal Estimated Blood Loss 600 cc. 2.7 L crystalloid given Urine Output 600 cc Findings Nice reduction of the L1-2 deformity prone on the Zak table. Tight stenosis L1-2. Specimen(s) None Complications None Technique After written consent was obtained the patient was brought the op room and smooth induction of general anesthesia was initiated. The patient was given preoperative antibiotics. Appropriate timeout procedure was performed. He was prepared for motor and sensory evoked potentials. A Rosales catheter was placed sterilely. He was rolled prone onto the Zak frame with his arms forward making sure to pad all pressure points. The fluoroscope was brought in the room. Additional padding under the iliac crests was used to reduce the deformity as best possible. We planned a linear incision the midline incorporating the previous scar, extending it superiorly. The posterior lumbar region was prepared with Betadine prep followed by DuraPrep. This region was draped sterilely. Absent Marcaine with epinephrine was used for skin anesthesia. I began by opening the previous incision, extending it superiorly. We used subperiosteal dissection to expose the spinous processes and lamina of T9-L5. We exposed the hardware from L2-L5. Seroma was noted inferiorly. I did not appreciate kristopher evidence of infection. We then dissected out laterally to expose the transverse processes of T10-T12 and the transverse processes of L1. Self-retaining retractors were placed. We then remove the setscrews and rods from L2-L5. The L2 screws were noted to be loose. These were removed. Fluid on the left at L1-2 was noted. I did not appreciate CSF leak. The BrainLab clamp was then attached to the L1 posterior elements. We used. Point registration to register the intraoperative anatomy to a preoperatively obtained neuronavigation protocol CAT scan of the thoracic or lumbar spine. We then used the BrainLab machine to prepare for pedicle screws bilaterally from T10-L1 measuring 6.5 x 50 mm. These were from the Orthofix fire bird NXG set. There was good bony purchase at all 8 sites. We then used fluoroscopic guidance to place longer pedicle screws at L2 measuring 6.5 x 60 mm bilaterally. These were from the globus set as the Orthofix that did not have longer screws. We then performed total laminectomy of L1 and completion laminectomy of L2. Tight stenosis was noted more so on the right than left. We widely decompressed the bilateral L1 and L2 nerve roots. At the end of the decompression, we could retract the bilateral L2 nerve roots and feel anteriorly, making sure that there were no retropulsed bony fragments in front of the thecal sac. Meticulous hemostasis was then obtained with Surgiflo and cottonoids. We then sized for 210 mm titanium 5.5 mm rods. These were bent for lordosis. We decorticated the posterior elements from T10 down through L2 for arthrodesis. Morselized autograft from the lamina and spinous processes was then placed over the posterolateral region for arthrodesis. The rods from T10-L5 were then bent for lordosis. Setscrews were placed at all 16 sites. Motor and sensory evoked potentials were stable throughout the case. The setscrews were torqued appropriately. We distracted on the right at L1-4 more foraminal space. The wound was vanessa irrigated with antibiotic saline. Hemovac drain was placed in the epidural space and tunneled out inferolaterally to the right. AP and lateral fluoroscopic images show acceptable placement of the instrumentation from T10-L5 with nice reduction of the kyphotic deformity at the L1-2 level. The incision was then closed in layers with interrupted 0 Vicryl, 2-0 Vicryl, and 3-0 Vicryl sutures followed by a running nylon suture in the skin. Iodoform gauze, Telfa and sterile dressing was then applied. All needle and sponge counts were correct at the end the case. I was present for the entire procedure. At the end the case, the patient was awoken general anesthesia, rolled supine on stretcher, next with the operating. He will be transferred to the postanesthesia care unit for follow-up monitoring. Please note, this procedure was performed in conjunction with my resident neurosurgeon whose name is detailed above. The resident's assistance was crucial to the successful completion of the case as there were no other qualified assistants available. I participated in the crucial portions of the procedure. Attestation by Beatrice BRANDON, Joesph Rodriguez on October 25, 2023 21:35 10/25/2023 Endocrinology IM Consult Note Subjective Chief Complaint L1-L3 pain. Also reports a shooting pain and numbness down left leg. no loss of bowel or bladder. no new injury or falls. has been needing to use a walker due to pain. Patient seen at bedside. Glucose 168 mg per DL this morning. Patient complained of severe 10/10 pain in his back when seen by endocrinology this morning. Patient was subsequently started on dexamethasone 6 mg BID with expected increase in glucose but currently stable. Review of Systems 14 point ROS was done and is negative unless stated otherwise in HPI above. Objective Vitals and Measurements T: 36.1 C TMIN: 36.1 C TMAX: 37.7 C HR: 66 RR: 18 BP: 121/68 SpO2: 96% Physical Exam GENERAL: NAD. HEAD: normocephalic EYES: Non icteric, conjunctiva normal CARDIOVASCULAR: bilateral chest rise RESPIRATORY: unlabored respiration ABDOMEN: nondistended MUSCULOSKELETAL: ROM intact NEURO: A&O x 3 PSYCHIATRIC: Appropriate mood and affect. Lab Results CBC (08/29/23) WBC 3.61 Hgb L 9.8 Hct L 29.7 MCV 88.7 PLT 181 Auto Differential % nRBC 0.0 Absolute nRBC 0.0 % Neutrophils 69.2 Absolute Neut 2.50 % Im Granulocyt H .60 Absolute Im Gra 0.02 % Lymphocytes 19.7 % Monocytes 6.4 % Eosinophils 3.3 % Basophils 0.8 Basic Metabolic Panel (08/29/23) Na+ 137 K+ 3.8 Cl- 100 CO2 27 Anion gap 14 GLU H 193 BUN 18 Creat 1.09 Estimated GFR f L 71 Estimated GFR f Not calculated Ca 9.6 Hemolysis Index H 1 Icteria Index H 1 Lipemia Index H 10 Assessment/Plan Patient Summary Patient is a 73-year-old male with a history of type 2 diabetes mellitus, hyperlipidemia, diabetic neuropathy, osteoarthritis, BPH, restless leg, and C4-C6 ACDF in 2007, C3-T2 PCF, L3-L5 laminectomy, and L4-L5 TLIF who presented with acute worsening of lower back pain. He is status post L4-L5 fusion exploration, L2-L3 Mckeon-Swift osteotomy, redo L2-L3 decompression for discectomy, bilateral synovial cyst resection on 08/23/2023. Endocrinology consulted for management of type 2 diabetes mellitus with hyperglycemia. Current home regimen Farxiga 10 mg daily Glipizide 10 mg twice daily Had GI side effects and headaches with metformin in the past. A1c 7.9% from 02/07/2023 1. Type 2 diabetes mellitus Steroid-induced hyperglycemia A1c 8.2% from 08/23/2022. Patient got total of 14 mg of dexamethasone IntraOp on 08/22. Started on Dexamethasone 6 mg BID today Recommendations -Continue carb ratio to 1 to 4 g before meals and snacks. -Continue correction factor to 1:20 above 150 before meals. -Continue Lantus 30 units every morning. -Glucose checks 5 times daily including bedtime and at 3 AM. -Observe hypoglycemia protocol. >>Patient will likely have increase in requirements and will be closely monitored by endocrinology. If concern, for hyperglycemia, reach out to fellow application development director. Endocrinology will continue to follow Patient was seen and discussed with Dr. Murray On 08-29-2023 I personally saw and evaluated this patient. I discussed the management with Dr. Saúl Pal (endocrinology fellow application development director) and reviewed the note above. I agree with the documented findings and plan of care. Patient was discharged by primary team today and patient was unable to be seen by team prior to discharge. Chart was reviewed, and discharge recommendations included Lantus 20 units daily, Farxiga 10 mg daily, and initiation of Ozempic 0.25 mg weekly with follow-up with primary care physician to further increase to 0.5 mg weekly. Recommended discontinuing of glipizide 10 mg twice daily. Patient would benefit from CGM monitor for closer monitoring of glucose. 08/29/2023 Phys Med and Rehab Consult Note Chief Co mplaint L1-L3 pain. Also reports a shooting pain and numbness down left leg. no loss of bowel or bladder. no new injury or falls. has been needing to use a walker due to pain. Reason for Consultation rehab needs Requesting Provider Attending Physician: Joesph Barron MD History of Present Illness Ron Hernandez is a 73-year-old male with PMH of CKD, diabetes mellitus type 2, history of C2-T2 fusion, L4-L5 TLIF who presented to ED for worsening back pain on 08/20. MRI showed central disc herniation L2-3 associated bilateral synovial cyst and severe stenosis above previous L3-4 decompression and L4-5 fusion. Patient underwent L4-5 fusion exploration, L2-3 osteotomy, redo L2-3 decompression for discectomy bilateral synovial cyst resection, L2-4 posterior frontal spinal fusion, and right-sided L2-3 interbody fusion, L2-4 posterior lateral autograft, L2-5 instrumentation on 08/22. [1] INTERVAL HISTORY: Since being seen last, patient has had continued pain, mostly located in his back but occasionally causing left leg numbness and right lower extremity pain. Denies any changes in bowel or bladder and is doing well from that standpoint. Does continue to have significant muscle spasms and at bedside states that they started new muscle relaxers today. Plan is still to get over to [facility] as long as insurance approves this. Therapy Progress: 6 Clicks Mobility Pt age for 6 click mobility assessment : 5 yrs or older Turn over in bed with sheets : None (4 points) Sit down/stand up from chair with arms : A little (3 points) Move from supine to sit on side of bed : A little (3 points) Move to and from bed to chair : A little (3 points) Walk in hospital room : A little (3 points) Climb 3 - 5 steps with railing : A lot (2 points) 6 Clicks Mobility Raw Score : 18 Jake Licea PT - 08/26/2023 15:30 CDT Image 1 - Images currently included in the form version of this document have not been included in the text rendition version of the form. PT Objective Findings Cognitive Status : Alert and Oriented Jake Licea PT - 08/26/2023 15:30 CDT Functional Mobility Grid Rolling : Supervision Supine to Sit : Supervision Sit to Supine : Supervision Sit Edge of Bed : IND Sit to Stand : Minimal Stand to Sit : Minimal Jake Licea PT - 08/26/2023 15:30 CDT Transfers/Gait grid Gait c FWW : Andrew, 110 feet x 1 [2] Review of Systems Complete review of symptoms obtained and otherwise negative except noted as above. Physical Exam Vitals and Measurements T: 36.9 C TMIN: 36.4 C TMAX: 37.7 ?C HR: 77 RR: 16 BP: 137/67 SpO2: 96% GEN: No acute distress, awake HEENT: Pupils equal, NC CV: Appears well perfused RESP: No increased WOB GI/: nondistended abd PSYCH: Awake, alert and cooperative SKIN: Intact and dry. NEUROLOGIC: CN II-XII grossly intact with no focal deficit Speech: fluent, comprehension intact SILT in BUE and BLE grossly. General cognition intact Vincent's negative in BUE MSK: Manual muscle strength testing limited secondary to pain. Strength 5/5 throughout in the bilateral upper extremities. LLE strength 3/5 hip flexion, 1/5 knee extension, 5/5 plantarflexion dorsiflexion RLE strength 2/5 hip flexion, 3/5 knee extension, and 5/5 plantarflexion dorsiflexion. Assessment/Plan Problem List: Debility Lumbar stenosis s/p L2-5 instrumentation CKD Acute on chronic back pain, axial type Post-operative pain Muscle spasms Diabetes mellitus type 2 History of C2-T2 fusion Neuropathic pain Impaired mobility and ADLs due to the above Recommendations: Recommend inpatient rehab for the following: Rehab diagnosis: debility secondary to lumbar spinal stenosis and post surgerical pain Medical needs: Treatment of pain, prevention of DVT given new immobility, monitoring appetite along with dehydration and malnutrition, monitoring for changes in cardiac rhythm, monitor for seizures or changes in mental status, infection monitoring particularly PNA and UTI, swallowing precautions, skin integrity and pressure sore prevention, mood monitoring given high risk of depression, and fatigue. Functional needs: Physical therapy for LE ROM, strengthening, mobilization, and fall minimization. Occupational therapy for UE ROM, strengthening, coordination, transfers, and ADL s . Dispo: After inpatient rehab, goal is to discharge to home. Thank you for the consult. Please page/call with questions. Fortino Gale MD PGY-3 Physical Medicine and Rehabilitation Patient seen and discussed with cosigning attending physician Problem List/Past Medical History Ongoing CKD (chronic kidney disease) Diabetes Diabetic peripheral neuropathy History of lumbar spinal fusion Hyperlipemia Osteoarthritis Prostate hypertrophy Restless leg syndrome S/P cervical spinal fusion Type 2 diabetes mellitus Historical No qualifying data Procedure/Surgical History C3-4 laminectomy. Right-sided C7-T1 laminectomy and C8 foraminotomies; C3-4 and C7-T2 arthrodesis. Right-sided C7-T1 synovial cyst resection (02/18/2023) C4-6 ACDF 2007 L3-5 laminectomy L3-5 laminectomy Laminectomy L2, L3. L4-5 fusion Medications Inpatient bisacodyl suppository, 10 mg= 1 Supp, Rectal, Daily, PRN D50W injectable, 12.5 g= 25 mL, IV Push, As Indicated, PRN dextrose chewable tablet, 16 g= 4 Tablet(s), Oral, As Indicated, PRN docusate-senna, 1 Tablet(s), Oral, q12h fenofibrate 145 mg oral tablet, 145 mg= 1 Tablet(s), Oral, Daily finasteride, 5 mg= 1 Tablet(s), Oral, Daily gabapentin, 900 mg= 3 capsule(s), Oral, tid glucagon, 1 mg, IM, As Indicated, PRN heparin 5000 units/mL injectable solution, 5000 units= 1 mL, Subcutaneous, q8h insulin glargine, 30 units= 0.3 mL, Subcutaneous, Daily insulin lispro - carb ratio, 1 unit per 4 g of carbs, Subcutaneous, As Indicated, PRN insulin lispro - carb ratio, 1 unit per 4 g of carbs, Subcutaneous, tid w/Meals insulin lispro - correction scale, 1-14 units, Subcutaneous, tid w/Meals methocarbamol, 500 mg= 1 Tablet(s), Oral, q6h, PRN Milk of Magnesia, 15 mL, Oral, bid MiraLax, 17 g= 1 Packet, Oral, Daily oxyCODONE immediate release, 10 mg= 2 Tablet(s), Oral, q4h, PRN tiZANidine, 4 mg= 1 Tablet(s), Oral, q8h, PRN traMADol, 50 mg= 1 Tablet(s), Oral, q6h, PRN Tylenol Extra Strength 500 mg oral tablet, 1000 mg= 2 Tablet(s), Oral, q8h, PRN Zofran Inj, 4 mg= 2 mL, Slow IV Push, q6h, PRN Home Ascorbic Acid (Vitamin C) oral tablet, 1 Tablet(s), Oral, Daily buPROPion 150 mg/24 hours (XL) oral tablet, extended release, 150 mg= 1 Tablet(s), Oral, Daily Centrum Silver oral tablet, 1 Tablet(s), Oral, Daily cholecalciferol oral tablet, 1 Tablet(s), Oral, Daily cyclobenzaprine 5 mg oral tablet, 10 mg= 2 Tablet(s), Oral, At Bedtime, PRN Farxiga 10 mg oral tablet, 10 mg= 1 Tablet(s), Oral, qAM fenofibrate 145 mg oral tablet, 145 mg= 1 Tablet(s), Oral, Daily finasteride 5 mg oral tablet, 5 mg= 1 Tablet(s), Oral, Daily gabapentin 300 mg oral capsule, 900 mg= 3 capsule(s), Oral, tid, 11 refills gabapentin 600 mg oral tablet, 600 mg= 1 Tablet(s), Oral, tid gemfibrozil 600 mg oral tablet, 600 mg= 1 Tablet(s), Oral, bid AC glipiZIDE 10 mg oral tablet, 10 mg= 1 Tablet(s), Oral, bid meloxicam 15 mg oral tablet naproxen sodium 220 mg oral capsule, 220 mg= 1 capsule(s), Oral, q12h, PRN Percocet 10 mg-325 mg oral tablet, 1 Tablet(s), Oral, q6h pramipexole 0.125 mg oral tablet, 0.25 mg= 2 Tablet(s), Oral, bid Tylenol 325 mg oral tablet, 650 mg= 2 Tablet(s), Oral, q4h, PRN Vitamin A oral capsule, 1 capsule(s), Oral, Daily Vitamin E oral capsule, 1 capsule(s), Oral, Daily zolpidem 5 mg oral tablet, 5 mg= 1 Tablet(s), Oral, At Bedtime, PRN Allergies metFORMIN (Upset stomach) Social History Smoking Status Never smoker Family History Immunizations Lab Results CBC (08/29/23) WBC 3.61 Hgb L 9.8 Hct L 29.7 MCV 88.7 PLT 181 Auto Differential % nRBC 0.0 Absolute nRBC 0.0 % Neutrophils 69.2 Absolute Neut 2.50 % Im Granulocyt H .60 Absolute Im Gra 0.02 % Lymphocytes 19.7 % Monocytes 6.4 % Eosinophils 3.3 % Basophils 0.8 Comprehensive Metabolic Panel (08/27/23) Na+ 136 K+ 4.6 Cl- 99 CO2 28 Anion gap 14 GLU H 168 BUN 19 Creat 1.15 Estimated GFR f L 66 Estimated GFR f Not calculated Ca 9.3 Alk Phos 55 AST 32 ALT 28 T Bili 0.46 Total Protein L 6.3 Alb 3.5 Hemolysis Index H 1 Icteria Index H 1 Lipemia Index H 5 Basic Metabolic Panel (02/22/23) Na+ L 134 K+ 4.0 Cl- 98 CO2 26 Anion gap 14 GLU 133 BUN 18 Creat 0.96 Estimated GFR f L 83 Estimated GFR f Not calculated Ca 9.7 Hemolysis Index H 6 Icteria Index H 1 Lipemia Index H 8 Diagnostic Results (08/11/2023 11:[address] Spine Lumbar) IMPRESSION: Interval worsening of degenerative changes of the lumbar spine with moderate to severe spinal canal narrowing at L2-L3 level. Severe right neuroforaminal narrowing at L4-L5. Moderate to severe left neuroforaminal narrowing at L2-L3 and L5-S1 level. [3] [1] Consult Note; Adenike Smith DO 08/24/2023 14:59 CDT [2] PT Treatment Form; Jake Licea PT 08/26/2023 15:30 CDT [3] CT Spine Lumbar; Danae Kearney MD 08/11/2023 11:42 CDT Attestation by Adenike Smith DO on August 29, 2023 12:55 I personally saw and evaluated the patient on the result date found in the header of this document. I discussed the management with the author of this document. I agree with the above documentation. Adenike Smith DO 08/29/2023 Endocrinology IM Consult Note Subjective Chief Complaint L1-L3 pain. Also reports a shooting pain and numbness down left leg. no loss of bowel or bladder. no new injury or falls. has been needing to use a walker due to pain. Patient seen at bedside. He has no complaints at this time. Glucose 156 mg per DL this morning. Objective Vitals and Measurements T: 36.9 C TMIN: 36.5 C TMAX: 36.9 C HR: 66 RR: 16 BP: 131/60 SpO2: 93% Physical Exam General: Alert and oriented, cooperative in no obvious distress. HEENT: Normocephalic, oral mucosa moist and pink. Cardiovascular: Heart rate regular with normal rhythm Respiratory: Breathing nonlabored, Abdomen: Soft, nontender, Neuro: No focal neurology deficits. Skin: dry, intact Lab Results CBC (08/24/23) WBC 9.80 Hgb L 12.0 Hct L 35.8 MCV 86.9 PLT 182 Auto Differential % nRBC 0.0 Absolute nRBC 0.0 % Neutrophils 85.4 Absolute Neut H 8.36 % Im Granulocyt .40 Absolute Im Gra H 0.04 % Lymphocytes 7.4 % Monocytes 6.7 % Eosinophils 0.0 % Basophils 0.1 Basic Metabolic Panel (02/22/23) Na+ L 134 K+ 4.0 Cl- 98 CO2 26 Anion gap 14 GLU 133 BUN 18 Creat 0.96 Estimated GFR f L 83 Estimated GFR f Not calculated Ca 9.7 Hemolysis Index H 6 Icteria Index H 1 Lipemia Index H 8 Diagnostic Results Assessment/Plan Patient Summary Patient is a 73-year-old male with a history of type 2 diabetes mellitus, hyperlipidemia, diabetic neuropathy, osteoarthritis, BPH, restless leg, and C4-C6 ACDF in 2007, C3-T2 PCF, L3-L5 laminectomy, and L4-L5 TLIF who presented with acute worsening of lower back pain. He is status post L4-L5 fusion exploration, L2-L3 Mckeon-Swift osteotomy, redo L2-L3 decompression for discectomy, bilateral synovial cyst resection on 08/23/2023. Endocrinology consulted for management of type 2 diabetes mellitus with hyperglycemia. Current home regimen Farxiga 10 mg daily Glipizide 10 mg twice daily Had GI side effects and headaches with metformin in the past. A1c 7.9% from 02/07/2023 1. Type 2 diabetes mellitus Steroid-induced hyperglycemia A1c 8.2% from 08/23/2022. Patient got total of 14 mg of dexamethasone IntraOp on 08/22. Today 08/27, patient doing well around lunchtime and dinner with glucose of 144 and 139 respectively. Will hold off on tightening carb ratio for now. He may actually need less insulin for meals tomorrow. Recommendations -Continue carb ratio to 1 to 4 g before meals and snacks. -Continue correction factor to 1-20 above 150 before meals. -Continue Lantus 30 units every morning. -Glucose checks 5 times daily including bedtime and at 3 AM. -Observe hypoglycemia protocol. Patient was seen and discussed with Dr. Rebel Jo Orders: insulin lispro, 1 unit per 4 g of carbs, form: Injection, Subcutaneous, tid w/Meals, first dose 08/26/23 12:30:00 CDT insulin lispro, 1-14 units, Injection, Subcutaneous, tid w/Meals, first dose 08/26/23 12:30:00 CDT insulin lispro, 1 unit per 4 g of carbs, form: Injection, Subcutaneous, As Indicated PRN for Snacks, first dose 08/26/23 10:36:00 CDT Patient was seen and evaluated on 08/28/[address] Hale . I have discussed the management with him. I have reviewed the note above. . I agree with the documented findings and plan of care. 08/28/2023 Neurology Consult Note VASCULAR NEUROLOG Y CONSULT NOTE Referring Clinician: Attending Physician: Joesph Barron MD Consult Question: Niharika aguilar, stuttering of speech Source of Information: Information obtained from the chart, patient, nurses and therapy staff at bedside. Chief Concern: Slurring of speech HISTORY OF PRESENT ILLNESS: A 73-year-old male who underwent L2-3 and L3-4 posterior spinal fusion on 08/22 with neurosurgery. Niharika stroke was activated as the patient had stuttered speech on pain when he started to work with physical therapy. Last known well 09:15 AM. Patient was working with physical therapy, and trying to get out of bed when he felt severe pain in his back referring to his right leg. That he started stuttering in his speech. Patient denies any history of strokes. He was not on any blood thinners. He reported that he had prior syncopes before long time ago when they suspected that he had possible seizures. Upon arrival to niharika stroke, patient had stuttering and mild dysarthria at 09:45 AM. On repeat examination, stuttering improved when patient was given oxycodone for pain control. Review of Systems: Unable to complete in the setting of patient's pain OTHER HISTORIES: Past Medical History: Lumbar fusion surgery Home Medications/Allergies: Prescription Medications gabapentin (gabapentin 300 mg): 900 mg 3 capsule(s) Oral tid acetaminophen-oxyCODONE (Percocet 10 mg-325 mg): 1 Tablet(s) Oral q6h Historical Medications zolpidem (zolpidem 5 mg): 5 mg 1 Tablet(s) Oral At Bedtime PRN (as needed for sleep) dapagliflozin (Farxiga 10 mg): 10 mg 1 Tablet(s) Oral qAM gemfibrozil (gemfibrozil 600 mg): 600 mg 1 Tablet(s) Oral bid AC finasteride (finasteride 5 mg): 5 mg 1 Tablet(s) Oral Daily cyclobenzaprine (cyclobenzaprine 5 mg): 10 mg 2 Tablet(s) Oral At Bedtime PRN (as needed) may take 1-2 tablets acetaminophen (Tylenol 325 mg): 650 mg 2 Tablet(s) Oral q4h PRN (as needed) pramipexole (pramipexole 0.125 mg): 0.25 mg 2 Tablet(s) Oral bid naproxen (naproxen sodium 220 mg): 220 mg 1 capsule(s) Oral q12h PRN (as needed) multivitamin with minerals (Centrum Silver): 1 Tablet(s) Oral Daily glipiZIDE (glipiZIDE 10 mg): 10 mg 1 Tablet(s) Oral bid gabapentin (gabapentin 600 mg): 600 mg 1 Tablet(s) Oral tid cholecalciferol (cholecalciferol): 1 Tablet(s) Oral Daily fenofibrate (fenofibrate 145 mg): 145 mg 1 Tablet(s) Oral Daily buPROPion (buPROPion 150 mg/24 hours (XL) , extended release): 150 mg 1 Tablet(s) Oral Daily Miscellaneous Medication (Vitamin A): 1 capsule(s) Oral Daily Miscellaneous Medication (Vitamin E): 1 capsule(s) Oral Daily Miscellaneous Medication (Ascorbic Acid (Vitamin C)): 1 Tablet(s) Oral Daily meloxicam (meloxicam 15 mg): TAKE 1 TABLET (15 MG TOTAL) BY MOUTH DAILY. Allergies/Adverse Drug Reactions: metFORMIN OBJECTIVE: Vitals:T: 36.5 DegC HR: 74 RR: 16 BP: 173/75 SpO2: 95 % Physical Examination: GENERAL: in distress HEENT: non-icteric sclerae CV: no peripheral edema in bilateral lower extremities RESP: , on room air GI: nondistended MSK: lower back wound PSYCH: crying in pain SKIN: no rashes seen Neurological: Mental Status: Level of consciousness: conscious, awake and alert. Orientation: oriented to time, place, person, and circumstance. Language: no aphasia or paraphasic errors; comprehension/repetition/naming intact. Speech: mild dysarthria. Memory: recall events from years ago Cranial Nerves: II: No visual deficits reported III, IV, : Conjugate horizontal gaze intact. V: Gross sensation intact in V1, V2 and V3 distribution to crude touch. VII: No facial asymmetry, able to smile symmetrically VIII: Hearing intact to conversation XI: Strong shoulder shrug bilaterally. IX, XII: Midline tongue protrusion. Motor: Normal tone, bulk without atrophy. No abnormal or involuntary movements. Strength Rt Lt Shoulder Abduction/Adduction 5/5 5/5 Biceps/Triceps 5/5 5/5 Hip Flexion/Extension 4/4 (limited by pain) 5/5 Knee Flexion/Extension 5/5 5/5 Dorsiflexion/Plantarflexion 5/5 5/5 Sensation: Intact and equal to crude touch sense bilaterally. NIH Stroke Scale Date: 08/28/2023 Time of Exam: _ Location of Exam: [facility] 1a-Level of Consciousness: 0 1b-What is Month/Age: 0 1c-Open/Close Eyes&Hand: 0 2-Best Gaze: 0 3-Visual Estrada: 0 4 -Facial Palsy: 0 9w-Fcfil-Awgk Arm: 0 2k-Sbbvt-Qxywc Arm: 0 0b-Lqqhz-Avzh Le 8f-Onter-Knnqv Le 7-Limb Ataxia: 0 8-Sensory: 0 9 -Best Language: 0 10-Dysarthria: 0 11-Extinction/Inattention: 0 NIHSS Total Score = ZERO Labs: CBC (08/24/23) WBC 9.80 Hgb L 12.0 Hct L 35.8 MCV 86.9 PLT 182 Auto Differential % nRBC 0.0 Absolute nRBC 0.0 % Neutrophils 85.4 Absolute Neut H 8.36 % Im Granulocyt .40 Absolute Im Gra H 0.04 % Lymphocytes 7.4 % Monocytes 6.7 % Eosinophils 0.0 % Basophils 0.1 Comprehensive Metabolic Panel (08/27/23) Na+ 136 K+ 4.6 Cl- 99 CO2 28 Anion gap 14 GLU H 168 BUN 19 Creat 1.15 Estimated GFR f L 66 Estimated GFR f Not calculated Ca 9.3 Alk Phos 55 AST 32 ALT 28 T Bili 0.46 Total Protein L 6.3 Alb 3.5 Hemolysis Index H 1 Icteria Index H 1 Lipemia Index H 5 Diagnostics: All images personally reviewed and interpreted. ASSESSMENT/PLAN: Impression: -Low suspicion for acute stroke Discussion: Patient had transient slurring of his speech on pain that lasted for about 20 minutes, and improved when giving oxycodone for pain control. Patient was even clinging his eyes from pain at that time. At the time, with the absence of localizing signs and improved symptoms and pain etiology, this is very unlikely that this is an acute stroke. Hence we will not get CT imaging. However, we advise the patient get monitored for any neurological deficits. Recommendations: -Monitor neurologically [neurochecks] -No imaging recommendations from stoke perspective in the meantime Recommendations relayed to referring team. Thank you for the consult and allowing us to be involved in the care of this patient. Please call with any questions or concerns. Rest of care per primary team. Patient staffed with attending Anu Landon MD. Attestation by Anu Landon MD on August 28, 2023 10:45 I personally saw and evaluated the patient on the result date found in the header of this document. I independently performed the critical/armijo portions of the Evaluation and Management service and discussed the management with the author of this document. I agree with everything documented above with the following exceptions/additions: independently interpreted: tele in NSR plan of care discussed with: nursing on rounds primary team change worktype 08/28/2023 Endocrinology IM Consult Note Subjective Chief Complaint L1-L3 pain. Also reports a shooting pain and numbness down left leg. no loss of bowel or bladder. no new injury or falls. has been needing to use a walker due to pain. Patient seen at bedside. He has no complaints at this time. Glucose this morning 212 mg per DL, slowly improving. Objective Vitals and Measurements T: 37.1 C TMIN: 36.8 C TMAX: 37.4 C HR: 73 RR: 16 BP: 121/62 SpO2: 95% Physical Exam General: Alert and oriented, cooperative in no obvious distress. HEENT: Normocephalic, Respiratory: Breathing nonlabored, Neuro: No focal neurology deficits. Skin: dry, intact. Lab Results CBC (08/24/23) WBC 9.80 Hgb L 12.0 Hct L 35.8 MCV 86.9 PLT 182 Auto Differential % nRBC 0.0 Absolute nRBC 0.0 % Neutrophils 85.4 Absolute Neut H 8.36 % Im Granulocyt .40 Absolute Im Gra H 0.04 % Lymphocytes 7.4 % Monocytes 6.7 % Eosinophils 0.0 % Basophils 0.1 Basic Metabolic Panel (02/22/23) Na+ L 134 K+ 4.0 Cl- 98 CO2 26 Anion gap 14 GLU 133 BUN 18 Creat 0.96 Estimated GFR f L 83 Estimated GFR f Not calculated Ca 9.7 Hemolysis Index H 6 Icteria Index H 1 Lipemia Index H 8 Diagnostic Results Assessment/Plan Patient Summary Patient is a 73-year-old male with a history of type 2 diabetes mellitus, hyperlipidemia, diabetic neuropathy, osteoarthritis, BPH, restless leg, and C4-C6 ACDF in 2007, C3-T2 PCF, L3-L5 laminectomy, and L4-L5 TLIF who presented with acute worsening of lower back pain. He is status post L4-L5 fusion exploration, L2-L3 Mckeon-Swift osteotomy, redo L2-L3 decompression for discectomy, bilateral synovial cyst resection on 08/23/2023. Endocrinology consulted for management of type 2 diabetes mellitus with hyperglycemia. Current home regimen Farxiga 10 mg daily Glipizide 10 mg twice daily Had GI side effects and headaches with metformin in the past. A1c 7.9% from 02/07/2023 1. Type 2 diabetes mellitus Steroid-induced hyperglycemia A1c 7.1% from 02/07/2023. Patient got total of 14 mg of dexamethasone IntraOp on 08/22. Recommendations -Change carb ratio to 1 to 4 g before meals and snacks. -Change correction factor to 1-20 above 150 before meals. -Continue Lantus 30 units every morning. -Glucose checks 5 times daily including bedtime and at 3 AM. -Observe hypoglycemia protocol. Patient was seen and discussed with Dr. Rebel Jo Orders: insulin lispro, 1 unit per 4 g of carbs, form: Injection, Subcutaneous, tid w/Meals, first dose 08/26/23 12:30:00 CDT insulin lispro, 1-14 units, Injection, Subcutaneous, tid w/Meals, first dose 08/26/23 12:30:00 CDT insulin lispro, 1 unit per 4 g of carbs, form: Injection, Subcutaneous, As Indicated PRN for Snacks, first dose 08/26/23 10:36:00 CDT Patient was seen and evaluated on08/26/[address] Hale . I have discussed the management with him. I have reviewed the note above. I have made necessary changes . I agree with the documented findings and plan of care. 08/26/2023 Endocrinology IM Consult Note Subjective Chief Complaint L1-L3 pain. Also reports a shooting pain and numbness down left leg. no loss of bowel or bladder. no new injury or falls. has been needing to use a walker due to pain. Patient seen at bedside. Glucose at 3 AM 271 mg per DL. He has no complaints at this time. Objective Vitals and Measurements T: 37.0 C TMIN: 36.3 C TMAX: 37.6 C HR: 84 RR: 16 BP: 168/73 SpO2: 95% Physical Exam General: Alert and oriented, cooperative in no obvious distress. HEENT: Normocephalic, . Respiratory: Breathing nonlabored, Neuro: No focal neurology deficits. Skin: dry, intact. Lab Results CBC (08/24/23) WBC 9.80 Hgb L 12.0 Hct L 35.8 MCV 86.9 PLT 182 Auto Differential % nRBC 0.0 Absolute nRBC 0.0 % Neutrophils 85.4 Absolute Neut H 8.36 % Im Granulocyt .40 Absolute Im Gra H 0.04 % Lymphocytes 7.4 % Monocytes 6.7 % Eosinophils 0.0 % Basophils 0.1 Basic Metabolic Panel (02/22/23) Na+ L 134 K+ 4.0 Cl- 98 CO2 26 Anion gap 14 GLU 133 BUN 18 Creat 0.96 Estimated GFR f L 83 Estimated GFR f Not calculated Ca 9.7 Hemolysis Index H 6 Icteria Index H 1 Lipemia Index H 8 Diagnostic Results Assessment/Plan Patient Summary Patient is a 73-year-old male with a history of type 2 diabetes mellitus, hyperlipidemia, diabetic neuropathy, osteoarthritis, BPH, restless leg, and C4-C6 ACDF in 2007, C3-T2 PCF, L3-L5 laminectomy, and L4-L5 TLIF who presented with acute worsening of lower back pain. He is status post L4-L5 fusion exploration, L2-L3 Mckeon-Swift osteotomy, redo L2-L3 decompression for discectomy, bilateral synovial cyst resection on 08/23/2023. Endocrinology consulted for management of type 2 diabetes mellitus with hyperglycemia. Current home regimen Farxiga 10 mg daily Glipizide 10 mg twice daily Had GI side effects and headaches with metformin in the past. A1c 7.9% from 02/07/2023 1. Type 2 diabetes mellitus Steroid-induced hyperglycemia A1c 7.1% from 02/07/2023. Patient got total of 14 mg of dexamethasone IntraOp on 08/22. Recommendations -Change carb ratio to 1 to 5 g before meals and snacks. -Continue Lantus 30 units every morning. -Correction factor 1-30 above 150 before meals. -Glucose checks 5 times daily including bedtime and at 3 AM. -Observe hypoglycemia protocol. Patient was seen and discussed with Dr. Rebel Jo Orders: glucagon, 1 mg, form: Injection, IM, As Indicated, PRN for Hypoglycemia, first dose 08/24/23 12:03:00 CDT, Blood glucose <= 69 mg/dL; (Unconscious or on tube feeds) w/o IV access, give 1 mg glucagon IM once and start IV with normal saline (NS) to keep open (TKO... glucose, 12.5 g = 25 mL, form: Injection Syringe, IV Push, As Indicated, PRN for Hypoglycemia, first dose 08/24/23 12:03:00 CDT, if Blood glucose <= 69 mg/dL; (unconscious OR on tube feeds) w/ IV access OR (patient is conscious and NPO) glucose, 16 g = 4 Tablet(s), form: Tablet Chew, Oral, As Indicated, PRN for Hypoglycemia, first dose 08/24/23 12:03:00 CDT, Blood glucose <= 69 mg/dL and pt is conscious and NOT NPO. insulin glargine, 30 units = 0.3 mL, form: Injection, Subcutaneous, Daily, NOW, first dose 08/24/23 12:03:00 CDT insulin lispro, 1 unit per 5 g of carbs, form: Injection, Subcutaneous, As Indicated PRN for Snacks, first dose 08/25/23 6:34:00 CDT insulin lispro, 1 unit per 5 g of carbs, form: Injection, Subcutaneous, tid w/Meals, first dose 08/25/23 7:30:00 CDT insulin lispro, 1-9 units, Injection, Subcutaneous, tid w/Meals, first dose 08/24/23 12:30:00 CDT Fingerstick Glucose Hypoglycemia Order Set Notify Provider Provider to Nursing Communication Patient was seen and evaluated on 08/25/[address] Hale I have discussed the management with him. I have reviewed the note above. I have made necessary changes . I agree with the documented findings and plan of care. 08/25/2023 Endocrinology IM Consult Note Chief Comp laint L1-L3 pain. Also reports a shooting pain and numbness down left leg. no loss of bowel or bladder. no new injury or falls. has been needing to use a walker due to pain. Reason for Consultation Type 2 diabetes mellitus with hyperglycemia Requesting Provider Dr. Barron History of Present Illness Patient is a 73-year-old male with a history of type 2 diabetes mellitus, hyperlipidemia, diabetic neuropathy, osteoarthritis, BPH, restless leg, and C4-C6 ACDF in 2007, C3-T2 PCF, L3-L5 laminectomy, and L4-L5 TLIF who presented with acute worsening of lower back pain. He is status post L4-L5 fusion exploration, L2-L3 Mckeon-Swift osteotomy, redo L2-L3 decompression for discectomy, bilateral synovial cyst resection on 08/23/2023. Endocrinology consulted for management of type 2 diabetes mellitus with hyperglycemia. Current home regimen Farxiga 10 mg daily Glipizide 10 mg twice daily A1c 7.9% from 02/07/2023 Review of Systems Negative except as above. Physical Exam Vitals and Measurements T: 36.8 C TMIN: 36 C TMAX: 37.0 ?C HR: 71 RR: 18 BP: 137/77 SpO2: 97% General: Alert and oriented, cooperative in no obvious distress. HEENT: Normocephalic, oral mucosa moist and pink. Cardiovascular: Heart rate regular with normal rhythm Respiratory: Breathing nonlabored, Abdomen: Soft, nontender, Neuro: No focal neurology deficits. Skin: dry, intact. Assessment/Plan 1. Type 2 diabetes mellitus Steroid-induced hyperglycemia A1c 7.9% from 02/07/2023. Patient got total of 14 mg of dexamethasone IntraOp on 08/22. Recommendations -Start Lantus 30 units now, and 30 units every morning. -Carb ratio 1:7 grams before meals and snacks. -Correction factor 1-30 above 150 before meals. -Glucose checks 5 times daily including bedtime and at 3 AM. -Observe hypoglycemia protocol. Patient was seen and discussed with Dr. Zak Almazan. Orders: glucagon, 1 mg, form: Injection, IM, As Indicated, PRN for Hypoglycemia, first dose 08/24/23 12:03:00 CDT, Blood glucose <= 69 mg/dL; (Unconscious or on tube feeds) w/o IV access, give 1 mg glucagon IM once and start IV with normal saline (NS) to keep open (TKO... glucose, 12.5 g = 25 mL, form: Injection Syringe, IV Push, As Indicated, PRN for Hypoglycemia, first dose 08/24/23 12:03:00 CDT, if Blood glucose <= 69 mg/dL; (unconscious OR on tube feeds) w/ IV access OR (patient is conscious and NPO) glucose, 16 g = 4 Tablet(s), form: Tablet Chew, Oral, As Indicated, PRN for Hypoglycemia, first dose 08/24/23 12:03:00 CDT, Blood glucose <= 69 mg/dL and pt is conscious and NOT NPO. insulin glargine, 30 units = 0.3 mL, form: Injection, Subcutaneous, Daily, NOW, first dose 08/24/23 12:03:00 CDT insulin lispro, 1 unit per 7 g of carbs, form: Injection, Subcutaneous, As Indicated PRN for Snacks, first dose 08/24/23 12:03:00 CDT insulin lispro, 1-9 units, Injection, Subcutaneous, tid w/Meals, first dose 08/24/23 12:30:00 CDT insulin lispro, 1 unit per 7 g of carbs, form: Injection, Subcutaneous, tid w/Meals, first dose 08/24/23 12:30:00 CDT Fingerstick Glucose Hemoglobin A1C Hypoglycemia Order Set Notify Provider Provider to Nursing Communication Problem List/Past Medical History Ongoing CKD (chronic kidney disease) Diabetes Diabetic peripheral neuropathy History of lumbar spinal fusion Hyperlipemia Osteoarthritis Prostate hypertrophy Restless leg syndrome S/P cervical spinal fusion Type 2 diabetes mellitus Historical No qualifying data Procedure/Surgical History C3-4 laminectomy. Right-sided C7-T1 laminectomy and C8 foraminotomies; C3-4 and C7-T2 arthrodesis. Right-sided C7-T1 synovial cyst resection (02/18/2023) C4-6 ACDF 2007 L3-5 laminectomy L3-5 laminectomy Laminectomy L2, L3. L4-5 fusion Medications Inpatient bisacodyl suppository, 10 mg= 1 Supp, Rectal, Daily, PRN cyclobenzaprine, 10 mg= 1 Tablet(s), Oral, q8h, PRN D50W injectable, 12.5 g= 25 mL, IV Push, As Indicated, PRN dextrose chewable tablet, 16 g= 4 Tablet(s), Oral, As Indicated, PRN docusate-senna, 1 Tablet(s), Oral, q12h fenofibrate 145 mg oral tablet, 145 mg= 1 Tablet(s), Oral, Daily finasteride, 5 mg= 1 Tablet(s), Oral, Daily gabapentin, 900 mg= 3 capsule(s), Oral, tid glucagon, 1 mg, IM, As Indicated, PRN heparin 5000 units/mL injectable solution, 5000 units= 1 mL, Subcutaneous, q8h insulin glargine, 30 units= 0.3 mL, Subcutaneous, Daily insulin lispro - carb ratio, 1 unit per 7 g of carbs, Subcutaneous, tid w/Meals insulin lispro - carb ratio, 1 unit per 7 g of carbs, Subcutaneous, As Indicated, PRN insulin lispro - correction scale, 1-9 units, Subcutaneous, tid w/Meals Milk of Magnesia, 15 mL, Oral, bid MiraLax, 17 g= 1 Packet, Oral, Daily NS 1,000 mL, 1000 mL, IV oxyCODONE immediate release, 10 mg= 2 Tablet(s), Oral, q4h, PRN Tylenol Extra Strength 500 mg oral tablet, 1000 mg= 2 Tablet(s), Oral, q8h, PRN Zofran Inj, 4 mg= 2 mL, Slow IV Push, q6h, PRN Home Ascorbic Acid (Vitamin C) oral tablet, 1 Tablet(s), Oral, Daily buPROPion 150 mg/24 hours (XL) oral tablet, extended release, 150 mg= 1 Tablet(s), Oral, Daily Centrum Silver oral tablet, 1 Tablet(s), Oral, Daily cholecalciferol oral tablet, 1 Tablet(s), Oral, Daily cyclobenzaprine 5 mg oral tablet, 10 mg= 2 Tablet(s), Oral, At Bedtime, PRN Farxiga 10 mg oral tablet, 10 mg= 1 Tablet(s), Oral, qAM fenofibrate 145 mg oral tablet, 145 mg= 1 Tablet(s), Oral, Daily finasteride 5 mg oral tablet, 5 mg= 1 Tablet(s), Oral, Daily gabapentin 300 mg oral capsule, 900 mg= 3 capsule(s), Oral, tid, 11 refills gabapentin 600 mg oral tablet, 600 mg= 1 Tablet(s), Oral, tid gemfibrozil 600 mg oral tablet, 600 mg= 1 Tablet(s), Oral, bid AC glipiZIDE 10 mg oral tablet, 10 mg= 1 Tablet(s), Oral, bid meloxicam 15 mg oral tablet naproxen sodium 220 mg oral capsule, 220 mg= 1 capsule(s), Oral, q12h, PRN Percocet 10 mg-325 mg oral tablet, 1 Tablet(s), Oral, q6h pramipexole 0.125 mg oral tablet, 0.25 mg= 2 Tablet(s), Oral, bid Tylenol 325 mg oral tablet, 650 mg= 2 Tablet(s), Oral, q4h, PRN Vitamin A oral capsule, 1 capsule(s), Oral, Daily Vitamin E oral capsule, 1 capsule(s), Oral, Daily zolpidem 5 mg oral tablet, 5 mg= 1 Tablet(s), Oral, At Bedtime, PRN Allergies metFORMIN (Upset stomach) Social History Smoking Status Never smoker Family History Immunizations Lab Results Diagnostic Results I personally saw and evaluated the patient on the date listed in the header of this document. I discussed the management with the fellow and resident on the team during rounds. I reviewed the note above and I agree with the documented findings and plan of care. 08/24/2023 Phys Med and Rehab Consult Note Chief Co mplaint L1-L3 pain. Also reports a shooting pain and numbness down left leg. no loss of bowel or bladder. no new injury or falls. has been needing to use a walker due to pain. Reason for Consultation Rehab needs Requesting Provider Attending Physician: Joesph Barron MD History of Present Illness Ron Hernandez is a 73-year-old male with PMH of CKD, diabetes mellitus type 2, history of C2-T2 fusion, L4-L5 TLIF who presented to ED for worsening back pain on 08/20. MRI showed central disc herniation L2-3 associated bilateral synovial cyst and severe stenosis above previous L3-4 decompression and L4-5 fusion. Patient underwent L4-5 fusion exploration, L2-3 osteotomy, redo L2-3 decompression for discectomy bilateral synovial cyst resection, L2-4 posterior frontal spinal fusion, and right-sided L2-3 interbody fusion, L2-4 posterior lateral autograft, L2-5 instrumentation on 08/22. Patient seen at bedside this afternoon. He reports he has been eating and drinking well. Last bowel movement was 2 days ago prior to surgery. States his Rosales catheter was moved approximately 4 hours ago and has not urinated yet. Patient reports that prior to surgery he was independent with ADLs and used a walking stick for mobility. 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 He states that recently he has had worsening left foot drag. Patient lives with his who is available 11/10 and able to provide some physical assistance if needed. Functional Mobility Grid Rolling : Supervision Supine to Sit : Supervision Sit to Supine : Supervision Sit Edge of Bed : IND Sit to Stand : Minimal Stand to Sit : Minimal Jake Licea PT - 08/24/2023 13:09 CDT Transfers/Gait grid Gait c FWW : Andrew, 110 feet x 1 (Comment: Needing guidance with walker. [Jake Licea PT - 08/24/2023 13:09 CDT] ) Jake Licea PT - 08/24/2023 13:09 CDT [1] Review of Systems A complete review of systems was performed and was negative except as per HPI. Physical Exam Vitals and Measurements T: 36.8 C TMIN: 36 C TMAX: 37.0 ?C HR: 71 RR: 18 BP: 137/77 SpO2: 97% General: alert, in no acute distress HEENT: oral mucosa moist CV: tissues warm and well perfused Resp: non labored, symmetrical expansion Abd: nondistended Skin: warm, dry Psych: cooperative, appropriate mood and affect MSK: strength 5/5 bilateral upper and lower extremities Assessment/Plan Intractable pain Low back pain Neuropathic pain Lumbar stenosis S/p L2-5 instrumentation CKD Diabetes mellitus type 2 History of C2-T2 fusion Neuropathy Patient is requiring minimal assistance for gait 110 ft with FWW. Anticipate that he will likely be able to progress to discharging home with his following additional session with PT. Rosales catheter removed today. If patient is unable to void and there is concern for neurogenic bladder, a short stay at [facility] could be considered for intensive therapy and physician oversight for neurogenic bladder. Adenike Smith DO Problem List/Past Medical History Ongoing CKD (chronic kidney disease) Diabetes Diabetic peripheral neuropathy History of lumbar spinal fusion Hyperlipemia Osteoarthritis Prostate hypertrophy Restless leg syndrome S/P cervical spinal fusion Type 2 diabetes mellitus Historical No qualifying data Procedure/Surgical History C3-4 laminectomy. Right-sided C7-T1 laminectomy and C8 foraminotomies; C3-4 and C7-T2 arthrodesis. Right-sided C7-T1 synovial cyst resection (02/18/2023) C4-6 ACDF 2007 L3-5 laminectomy L3-5 laminectomy Laminectomy L2, L3. L4-5 fusion Medications Inpatient bisacodyl suppository, 10 mg= 1 Supp, Rectal, Daily, PRN cyclobenzaprine, 10 mg= 1 Tablet(s), Oral, q8h, PRN D50W injectable, 12.5 g= 25 mL, IV Push, As Indicated, PRN dextrose chewable tablet, 16 g= 4 Tablet(s), Oral, As Indicated, PRN docusate-senna, 1 Tablet(s), Oral, q12h fenofibrate 145 mg oral tablet, 145 mg= 1 Tablet(s), Oral, Daily finasteride, 5 mg= 1 Tablet(s), Oral, Daily gabapentin, 900 mg= 3 capsule(s), Oral, tid glucagon, 1 mg, IM, As Indicated, PRN heparin 5000 units/mL injectable solution, 5000 units= 1 mL, Subcutaneous, q8h insulin glargine, 30 units= 0.3 mL, Subcutaneous, Daily insulin lispro - carb ratio, 1 unit per 7 g of carbs, Subcutaneous, tid w/Meals insulin lispro - carb ratio, 1 unit per 7 g of carbs, Subcutaneous, As Indicated, PRN insulin lispro - correction scale, 1-9 units, Subcutaneous, tid w/Meals Milk of Magnesia, 15 mL, Oral, bid MiraLax, 17 g= 1 Packet, Oral, Daily NS 1,000 mL, 1000 mL, IV oxyCODONE immediate release, 10 mg= 2 Tablet(s), Oral, q4h, PRN Tylenol Extra Strength 500 mg oral tablet, 1000 mg= 2 Tablet(s), Oral, q8h, PRN Zofran Inj, 4 mg= 2 mL, Slow IV Push, q6h, PRN Home Ascorbic Acid (Vitamin C) oral tablet, 1 Tablet(s), Oral, Daily buPROPion 150 mg/24 hours (XL) oral tablet, extended release, 150 mg= 1 Tablet(s), Oral, Daily Centrum Silver oral tablet, 1 Tablet(s), Oral, Daily cholecalciferol oral tablet, 1 Tablet(s), Oral, Daily cyclobenzaprine 5 mg oral tablet, 10 mg= 2 Tablet(s), Oral, At Bedtime, PRN Farxiga 10 mg oral tablet, 10 mg= 1 Tablet(s), Oral, qAM fenofibrate 145 mg oral tablet, 145 mg= 1 Tablet(s), Oral, Daily finasteride 5 mg oral tablet, 5 mg= 1 Tablet(s), Oral, Daily gabapentin 300 mg oral capsule, 900 mg= 3 capsule(s), Oral, tid, 11 refills gabapentin 600 mg oral tablet, 600 mg= 1 Tablet(s), Oral, tid gemfibrozil 600 mg oral tablet, 600 mg= 1 Tablet(s), Oral, bid AC glipiZIDE 10 mg oral tablet, 10 mg= 1 Tablet(s), Oral, bid meloxicam 15 mg oral tablet naproxen sodium 220 mg oral capsule, 220 mg= 1 capsule(s), Oral, q12h, PRN Percocet 10 mg-325 mg oral tablet, 1 Tablet(s), Oral, q6h pramipexole 0.125 mg oral tablet, 0.25 mg= 2 Tablet(s), Oral, bid Tylenol 325 mg oral tablet, 650 mg= 2 Tablet(s), Oral, q4h, PRN Vitamin A oral capsule, 1 capsule(s), Oral, Daily Vitamin E oral capsule, 1 capsule(s), Oral, Daily zolpidem 5 mg oral tablet, 5 mg= 1 Tablet(s), Oral, At Bedtime, PRN Allergies metFORMIN (Upset stomach) Social History Smoking Status Never smoker Family History Reviewed and noncontributory Immunizations Lab Results CBC (08/24/23) WBC 9.80 Hgb L 12.0 Hct L 35.8 MCV 86.9 PLT 182 Auto Differential % nRBC 0.0 Absolute nRBC 0.0 % Neutrophils 85.4 Absolute Neut H 8.36 % Im Granulocyt .40 Absolute Im Gra H 0.04 % Lymphocytes 7.4 % Monocytes 6.7 % Eosinophils 0.0 % Basophils 0.1 Comprehensive Metabolic Panel (08/24/23) Na+ 136 K+ 4.8 Cl- 103 CO2 L 21 Anion gap 17 GLU H 294 BUN H 27 Creat H 1.33 Estimated GFR f L 56 Estimated GFR f Not calculated Ca L 8.4 Alk Phos 53 AST H 90 ALT 46 T Bili 0.33 Total Protein L 5.7 Alb 3.6 Hemolysis Index H 4 Icteria Index H 1 Lipemia Index H 4 Diagnostic Results (08/11/2023 11:[address] Spine Lumbar) IMPRESSION: Interval worsening of degenerative changes of the lumbar spine with moderate to severe spinal canal narrowing at L2-L3 level. Severe right neuroforaminal narrowing at L4-L5. Moderate to severe left neuroforaminal narrowing at L2-L3 and L5-S1 level. [2] [1] PT Evaluation Form; Jake Licea PT 08/24/2023 11:39 CDT [2] CT Spine Lumbar; Caio BRANDON, Danae Nielson 08/11/2023 11:42 CDT 08/24/2023 Op/Procedure Note Indication for Surge richa Bernal is a 73-year-old with a history of previous lumbar and cervical surgery. He now presents with back pain and bilateral anterior thigh pain associated with weakness. MRI scan reveals a central disc herniation at L2-3 associated with bilateral synovial cysts and severe stenosis above previous L3-4 decompression and L4-5 fusion. Scoliosis images show persistent 20 degree mismatch of lordosis to pelvic incidence. He presents for definitive surgical intervention. I recommended surgical intervention to correct his sagittal deformity, removing a wedge of bone and placing an expandable cage to create an additional 20 degrees of lordosis. He presented to the emergency room as his pain was so severe that he could not wait for insurance approval. He was admitted over the weekend anticipation of surgery today. Preoperative Diagnosis History of L4-5 fusion. L2-3 stenosis. L2-3 disc herniation. L2-3 synovial cysts. Sagittal deformity. Lumbar stenosis with neurogenic claudication. Postoperative Diagnosis Same Operation L4-5 fusion exploration. L2-3 Mckeon-Swift osteotomy for correction of sagittal deformity. Redo L2-3 decompression for discectomy, bilateral synovial cyst resection. Image guided L2-3 and L3-4 posterior spinal fusion with Orthofix fire bird pedicle screw instrumentation. Right-sided L2-3 interbody fusion with Zavation expandable cage. L2-4 posterolateral autograft. L2-5 instrumentation. Use of O-arm image guidance. Use of pedicle screw monitoring and running SSEPs. Surgeon(s) Dr. Joesph Barron Space Officer Dr. Martha Jain Anesthesia General endotracheal Estimated Blood Loss 600 cc. 1.5 L crystalloid given Urine Output 900 cc Findings Tight stenosis L2-3 associated with bilateral synovial cysts, large central disc protrusion. Solid fusion L4-5 noted. L4 and L5 pedicle screws left in place and connected to the new construct. Incidental durotomy on the left proximal to the left L3 nerve root, repaired primarily. Specimen(s) None Complications None Technique After written consent was obtained, the patient was brought in the operating room and smooth induction of general anesthesia was initiated. The patient was given preoperative antibiotics. Appropriate timeout procedure was performed. A Rosales catheter was placed sterilely. He was rolled prone onto the Zak table and maximal lordosis with his arms forward, making sure to pad all pressure points. The posterior lumbar region was prepared with Hibiclens followed by alcohol followed by DuraPrep. This region was draped sterilely. Absent Marcaine with epinephrine was used for skin anesthesia. We began by opening the previous scar, extending it superiorly. This was carried down through fat to the lumbodorsal fascia. Lumbodorsal fascia was opened with Bovie cautery on either side of midline. We used subperiosteal dissection to expose the spinous processes and lamina of L1, L2. We then dissected out laterally to expose the transverse process of L2, the transverse process of L3 and L4. We exposed the hardware from the previous surgery. Self-retaining retractors were placed. Soft tissue was removed from the hardware. The locking screws and the rods were removed at L4 and L5. There was good bony purchase at both sites noted and solid fusion from the previous surgery noted. We elected to leave the L4 and L5 fiber pedicle screws in place. We then placed a chance pin in the iliac crest on the left. Bone marrow aspirate was taken through separate fascial incision. The Stealth arc was attached to the chance pin. The O-arm was then brought in the room and an intraoperative spin was utilized. We then used the O-arm machine to place pedicle screws bilaterally at L2 measuring 7.5 x 50 mm and bilaterally at L3 measuring 7.5 x 55 mm. All 4 screws stimulated appropriately without evidence of cortical breach. We then performed Mckeon-Swift osteotomy at L2-3, completely removing the abnormal remnant spinous processes lamina and facets in their entirety. Approximately 15 degree bony wedge was removed to create the lordosis necessary to achieve balance between pelvic incidence and lumbar lordosis. In the process of decompressing the nerve roots, there was a durotomy noted on the left proximal to the L3 nerve root. This was protected with cottonoids. Bilateral synovial cysts were also noted which were densely adherent to the dura. These were painstakingly removed and from the dura. We then widely decompressed the bilateral L2 and L3 nerve roots. On the right side of midline, we medialized the right L3 nerve root and noted a sizable central calcified disc herniation. We distracted on the left-sided screws. The segment was spread open. We then used endplate rossana and scrapers from the Zavation set to remove the cartilaginous endplates at L2 and L3, taking care to preserve cortical bone at both endplates. We noted fishmouthing of the disc space at L2-3 as the segment became more lordotic. We then sized for an Orthofix Forza trial measuring 10.5 x 28 mm. The trial fit snugly. This was placed under fluoroscopic guidance. The morselized facet joints was then mixed with the bone marrow aspirate. We packed the L2-3 disc space with bone and bone marrow aspirate, pushing it from the right to the left. We then placed the cortisone cage, 10.5 to 20 mm. This was expanded in the anterior two thirds of the disc space to create the 20 degrees of lordosis mentioned above. AP and lateral fluoroscopic images showed acceptable placement of the cage and pedicle screws. The microscope was then draped and on the field. Using microscopic section, we exposed the durotomy over the left L3 segment. This was closed with 4 separate interrupted 5-0 Prolene sutures in a watertight fashion. With Valsalva CSF could not be seen. We cover the dural closure with layers of TachoSil. The screw heads were then placed over the Shanks at the new sites, L2 and L3. We placed lordotic rods between the screw heads, 5.5 mm which were additionally bent for the new lordosis. Screw caps were then placed over all 8 segments and torqued appropriately. AP and lateral fluoroscopic images showed nice establishment of lordosis at L2-3 with closing off of the disc space posteriorly. The posterolateral region was decorticated and bone with bone marrow aspirate was placed over the L2, L3, and L4 segments for arthrodesis. The wound was copiously irrigated. A Hemovac drain was placed in the epidural space and tunneled out inferolaterally to the left through the chance pin site which had been removed. After meticulous hemostasis was obtained, the incision was closed in layers with interrupted oh, 2 oh, and 3-0 Vicryl sutures followed by a running 4 Monocryl in the skin. A drain stitch was applied. The closure was then covered with Dermabond. All needle and sponge counts were correct at the end the case. I was present entire procedure. At the end the case, the patient was rolled spine the stretcher next with the operating. He will be transferred the postanesthesia care unit for follow-up monitoring. Please note, this procedure was performed in conjunction with my resident neurosurgeon whose name is detailed above. The resident's assistance was crucial to the successful completion of the case as there were no other qualified assistants available. I participated in the crucial portions of the procedure. Attestation by Beatrice BRANDON, Joesph Rodriguez on August 23, 2023 19:49 08/23/2023 Neurosurgery Consult Note Chief Complain t L1-L3 pain. Also reports a shooting pain and numbness down left leg. no loss of bowel or bladder. no new injury or falls. has been needing to use a walker due to pain. Reason for Consultation Acute worsening of chronic back pain History of Present Illness 73year old man with h/o CKD, DM, HLD, BPH, C2-T2 fusion, L4-5 TLIF presented with acute worsening of his LBP. Patient was last seen in clinic on 08/11/23 and has scheduled to undergo L2-3 TLIF, removal of L4-5 hardware and L2-5 instrumentation. Patient states that he could not tolerate back pain. Denies any new tingling, numbness or paresthesias. Denies any new or worsening weakness in the extremities. Denies bowel or bladder issues. Physical Exam Vitals and Measurements T: 36 C HR: 67 RR: 18 BP: 132/67 SpO2: 95% WT: 97 kg GENERAL: In acute distress HEENT: Normocephalic, atraumatic. CARDIOVASCULAR: Normal rate and rhythm. RESPIRATORY: Symmetrical chest rise, nonlabored. GASTROINTESTINAL: Soft, nontender, rounded. EXTREMITIES: Warm. No edema NEUROLOGIC: Mental Status: -Alert and fully oriented to person, place, time, and situation -Language and speech is clear and fluent Cranial Nerve Examination: -CN II: PERRLA, visual estrada are full to confrontation, 3 mm bilaterally brisk pupils. -CN III, IV, : EOMI without nystagmus, no ptosis. -CN V: Intact facial sensation, masseters and temporalis have normal bulk and strength. -CN VII: Facial movements are symmetrical. -CN VIII: Hearing is intact to conversational level of speech and finger rub. -CN IX, X: Midline uvula, palate elevates symmetrically, speech is clear. -CN XI: Head turns and shoulder shrugs are symmetrical bilaterally, normal bulk SCM's and trapezii. -CN XII: Tongue protrudes in the midline. Motor: -LOVING x4 with 5/5 muscle strength throughout *UE R: 5/5 Deltoid, 5/5 Biceps, 5/5 Triceps, 5/5 Wrist Extension, 5/5 Hand Rn Observation, 5/5 Finger Abduction *UE L: 5/5 Deltoid, 5/5 Biceps, 5/5 Triceps, 5/5 Wrist Extension, 5/5 Hand Rn Observation, 5/5 Finger Abduction *LE R: 4/5 Iliopsoas, 5/5 Quadriceps, 5/5 Hamstrings, 5/5 Dorsiflexion, 5/5 EHL, 5/5 Plantarflexion *LE L: 4/5 Iliopsoas, 5/5 Quadriceps, 5/5 Hamstrings, 5/5 Dorsiflexion, 4/5 EHL, 5/5 Plantarflexion Assessment/Plan 73year old man with h/o C4-6 ACDF 2007, C3-T2 PCF, L3-5 lami and L4-5 TLIF scheduled for L2-3 TLIF, removal of L4-5 cage and L2-5 posterolateral fusion presented with acute worsening of his chronic LBP. No other symptoms. Stable neurological exam. -Obs for pain control -NPO, IVF -Will follow. Problem List/Past Medical History Ongoing CKD (chronic kidney disease) Diabetes Diabetic peripheral neuropathy History of lumbar spinal fusion Hyperlipemia Osteoarthritis Prostate hypertrophy Restless leg syndrome S/P cervical spinal fusion Type 2 diabetes mellitus Historical No qualifying data Procedure/Surgical History C3-4 laminectomy. Right-sided C7-T1 laminectomy and C8 foraminotomies; C3-4 and C7-T2 arthrodesis. Right-sided C7-T1 synovial cyst resection (02/18/2023) C4-6 ACDF 2007 L3-5 laminectomy L3-5 laminectomy Laminectomy L2, L3. L4-5 fusion Medications Inpatient No active inpatient medications Home Ascorbic Acid (Vitamin C) oral tablet, 1 Tablet(s), Oral, Daily buPROPion 150 mg/24 hours (XL) oral tablet, extended release, 150 mg= 1 Tablet(s), Oral, Daily Centrum Silver oral tablet, 1 Tablet(s), Oral, Daily cholecalciferol oral tablet, 1 Tablet(s), Oral, Daily cyclobenzaprine 5 mg oral tablet, 10 mg= 2 Tablet(s), Oral, At Bedtime, PRN Farxiga 10 mg oral tablet, 10 mg= 1 Tablet(s), Oral, qAM fenofibrate 145 mg oral tablet, 145 mg= 1 Tablet(s), Oral, Daily finasteride 5 mg oral tablet, 5 mg= 1 Tablet(s), Oral, Daily gabapentin 300 mg oral capsule, 900 mg= 3 capsule(s), Oral, tid, 11 refills gabapentin 600 mg oral tablet, 600 mg= 1 Tablet(s), Oral, tid gemfibrozil 600 mg oral tablet, 600 mg= 1 Tablet(s), Oral, bid AC glipiZIDE 10 mg oral tablet, 10 mg= 1 Tablet(s), Oral, bid meloxicam 15 mg oral tablet naproxen sodium 220 mg oral capsule, 220 mg= 1 capsule(s), Oral, q12h, PRN Percocet 10 mg-325 mg oral tablet, 1 Tablet(s), Oral, q6h pramipexole 0.125 mg oral tablet, 0.25 mg= 2 Tablet(s), Oral, bid Tylenol 325 mg oral tablet, 650 mg= 2 Tablet(s), Oral, q4h, PRN Vitamin A oral capsule, 1 capsule(s), Oral, Daily Vitamin E oral capsule, 1 capsule(s), Oral, Daily zolpidem 5 mg oral tablet, 5 mg= 1 Tablet(s), Oral, At Bedtime, PRN Allergies metFORMIN (Upset stomach) Social History Smoking Status Never smoker Family History Immunizations Lab Results Diagnostic Results MRI Lumbar spine personally reviewed from 08/09/2023 and showed a large herniated disc at L2-[address] Lumbar spine with L4-5 TLIF and PSF. 08/20/2023 Emergency Services Note Basic Informatio n Chief Complaint L1-L3 pain. Also reports a shooting pain and numbness down left leg. no loss of bowel or bladder. no new injury or falls. has been needing to use a walker due to pain. History of Present Illness Patient is a 73-year-old male with past medical history of diabetes, peripheral neuropathy, hyperlipidemia, arthritis, type 2 diabetes, CKD, and history of cervical spinal fusion as well as lumbar spinal fusion who presents today with worsening back pain and sciatica. Patient reports he was evaluated at neurosurgery clinic on 08/15. At that time they made a plan to complete outpatient surgery on. Since then, his pain is progressively worsened. He is having frequent episodes of shooting pain down the backs of his bilateral legs and buttocks, worse with movement. No new falls or any other injury. He does have some neuropathy in his bilateral lower extremities, but does not report any changes in this over the last week. No incontinence. He does feel less steady on his feet and has progressed from using a walking stick to using a walker over the last few days. He has been in close contact with his neurosurgeon who gave him a prescription for Percocet and told him that if this was not helping he should come into the ER for evaluation and be admitted for pain management which is why he is here today. He has been given a Percocet with no improvement. He denies fevers, chills, chest pain, shortness nausea/vomiting, dysuria Review of Systems Review of systems completed, pertinent positives and negatives documented above. Physical Exam Vitals and Measurements T: 36 C HR: 64 RR: 18 BP: 145/74 SpO2: 97% WT: 97 kg General: No acute distress. Alert and oriented. Speech fluent in Irish. HEENT: Normocephalic, atraumatic. Face symmetric. Resp: Lungs clear to auscultation bilaterally. No wheeze. Cardiovascular: Regular rate and rhythm, S1 and S2. Abd: Soft, non-tender, and non-distended. Musculoskeletal: Normal appearing extremities and ROM. Sensation intact throughout bilateral lower extremities. Strength intact with plantar and dorsiflexion of the feet, and hip flexion. No spinal tenderness to palpation or paraspinal tenderness palpation. Pushing on his back does not reproduce his pain. Skin: No visible rash or lesion. Psych: Normal affect. Procedure Medical Decision Making I reviewed triage and nursing records from this visit. I reviewed prior medical records in the EMR I reviewed all results of laboratory analysis, diagnostic studies, and imaging studies ordered and completed during this encounter. I independently interpreted results of all laboratory tests, EKGs, and further imagining and diagnostic testing completed during this encounter as documented in the MDM paragraph. Additional history obtained from: chart review Chronic medical problems contributing to current encounter or increasing risk of deteriorating as a result of the patient's current presenting complaint addressed during this encounter: diabetes, peripheral neuropathy, hyperlipidemia, arthritis, type 2 diabetes, CKD, and history of cervical spinal fusion as well as lumbar spinal fusion ​ Consultants: Neurosurgery --- Patient is a 73-year-old male who presents with back pain. Vital signs reviewed and stable, mild hypertension. Exam significant for episodic shooting pain, no reproducible spinal tenderness or paraspinal tenderness, sensation intact in bilateral lower extremities. Given that patient was instructed to come to the ER by neurosurgery, neurosurgery was consulted. They came and evaluated the patient and recommended pain management and reassessment and if pain was not improved on reassessment, they would consider admission to their service. Patient was treated initially with 10 of oral Percocet as he did not have an IV. He had no complaints or concerns at this time that warranted additional laboratory evaluation. Patient was signed out to oncoming provider Dr. Valencia pending reassessment and final neurosurgery recommendations. See her note for final disposition. Reexamination/Reevaluation Patient handed off from Dr. Borden pending disposition. In the ED, patient's pain was treated with 1 of Dilaudid as well as Percocet. Patient still reported significant pain. Given these symptoms, patient was admitted to ED obs, for pain control and neurosurgical evaluation. Assessment/Plan 1. Back pain Patient Education Follow Up No qualifying data available Medication Reconciliation Unchanged acetaminophen (Tylenol 325 mg oral tablet)2 tab(s) Oral Every 4 hours as needed. acetaminophen-oxyCODONE (Percocet 10 mg-325 mg oral tablet)1 tab(s) Oral Every 6 hours. Refills: 0. buPROPion (buPROPion 150 mg/24 hours (XL) oral tablet, extended release)1 tab(s) Oral Daily. cholecalciferol (cholecalciferol oral tablet)1 tab(s) Oral Daily. cyclobenzaprine (cyclobenzaprine 5 mg oral tablet)2 tab(s) Oral At bedtime as needed. may take 1-2 tablets. dapagliflozin (Farxiga 10 mg oral tablet)1 tab(s) Oral Every morning. fenofibrate (fenofibrate 145 mg oral tablet)1 tab(s) Oral Daily. finasteride (finasteride 5 mg oral tablet)1 tab(s) Oral Daily. gabapentin (gabapentin 300 mg oral capsule)3 Capsules Oral Three times daily. Refills: 11. gabapentin (gabapentin 600 mg oral tablet)1 tab(s) Oral Three times daily. gemfibrozil (gemfibrozil 600 mg oral tablet)1 tab(s) Oral Twice daily a/ brkfast &supper. glipiZIDE (glipiZIDE 10 mg oral tablet)1 tab(s) Oral Twice daily. meloxicam (meloxicam 15 mg oral tablet)TAKE 1 TABLET (15 MG TOTAL) BY MOUTH DAILY.. Miscellaneous Medication (Ascorbic Acid (Vitamin C) oral tablet)1 tab(s) Oral Daily. Miscellaneous Medication (Vitamin A oral capsule)1 Capsules Oral Daily. Miscellaneous Medication (Vitamin E oral capsule)1 Capsules Oral Daily. multivitamin with minerals (Centrum Silver oral tablet)1 tab(s) Oral Daily. naproxen (naproxen sodium 220 mg oral capsule)1 Capsules Oral Every 12 hours as needed. pramipexole (pramipexole 0.125 mg oral tablet)2 tab(s) Oral Twice daily. zolpidem (zolpidem 5 mg oral tablet)1 tab(s) Oral At bedtime as needed as needed for sleep. ED Forms Problem List/Past Medical History Ongoing CKD (chronic kidney disease) Diabetes Diabetic peripheral neuropathy History of lumbar spinal fusion Hyperlipemia Osteoarthritis Prostate hypertrophy Restless leg syndrome S/P cervical spinal fusion Type 2 diabetes mellitus Historical No qualifying data Procedure/Surgical History C3-4 laminectomy. Right-sided C7-T1 laminectomy and C8 foraminotomies; C3-4 and C7-T2 arthrodesis. Right-sided C7-T1 synovial cyst resection (02/18/2023) C4-6 ACDF 2007 L3-5 laminectomy L3-5 laminectomy Laminectomy L2, L3. L4-5 fusion Medication Administration Given acetaminophen-oxycodone 325 mg-5 mg oral tablet, 2 Tablet(s), Oral Allergies metFORMIN (Upset stomach) Social History Smoking Status Never smoker Family History Lab Results Diagnostic Results ECG I evaluated the patient and discussed the management with the resident physician. I agree with their findings, documentation, treatment and disposition. Cristopher Marin MD Emergency Medicine Attending 08/20/2023 Discharge Summaries Results Value Date Source Discharge Summary Date of Admission Date of Discharge 10/31/2023 Reason for Hospitalization Back pain Hospital Course 73 year old with History of L2-5 fusion for deformity correction. 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 Denies, numbness/tingling in R leg, but has baseline numbness on L leg. 10/24 Pt is s/p L2-5 fusion expiration, L2 hardware removal, Image guided T10-L1 instrumentation, replacement of the L2 pedicle screws with longer screws, reduction of L1-2 kyphotic deformity, T10-L2 arthrodesis, and L1, L2 laminectomy for decompression of thecal sac. Pt had HV in place, but d/c'd on 10/26. Pt developed Abdominal pain postop, 10/25 KUB did not show ileus, had BM, bowel regimen upgraded, abdominal pain and distention resolved. Plan: - PT/OT- recommended discharge to home. - DVT [id number]-[id number] - Activity as tolerated - Regular diet tolerated well -pain controlled with PRN analgesics Pt agreeable to dc home today with his . Pt scheduled to follow up in clinic in 1 week for postop wound check. Return precautions discussed. Discharge Diagnoses Back pain L2 vertebral fracture Lumbar stenosis Neuropathic pain S/P spinal fusion Severe pain Orders: acetaminophen, 1,000 mg = 2 Tablet(s), Oral, q8h, # 42 Tablet(s), Refill(s) 0, Pharmacy: [facility], 190, cm, 10/25/23 23:48:00 CDT, Height (cm), kg, 10/25/23 23:48:00 CDT, Weight (kg), 92.9 bisacodyl, 10 mg = 1 Supp, Rectal, Daily, Scheduled / PRN PRN constipation, Hold for loose stools, # 10 Supp, Refill(s) 0, Pharmacy: [facility], 190, cm, 10/25/23 23:48:00 CDT, Height (cm), kg, 10/25/23 23:48:00 CDT, Weight (kg), 92.9 docusate-senna, 2 Tablet(s), Oral, bid, Hold for loose stools, # 56 Tablet(s), Refill(s) 0, Pharmacy: [facility], 190, cm, 10/25/23 23:48:00 CDT, Height (cm), kg, 10/25/23 23:48:00 CDT, Weight (kg), 92.9 methocarbamol, 500 mg = 1 Tablet(s), Oral, q6h, # 28 Tablet(s), Refill(s) 0, Pharmacy: [facility], 190, cm, 10/25/23 23:48:00 CDT, Height (cm), kg, 10/25/23 23:48:00 CDT, Weight (kg), 92.9 polyethylene glycol 3350, 17 g =, Oral, Daily, Scheduled / PRN PRN Constipation, Hold for loose stools, # 14 Each, Refill(s) 0, Pharmacy: [facility], 190, cm, 10/25/23 23:48:00 CDT, Height (cm), kg, 10/25/23 23:48:00 CDT, Weight (kg), 92.9 Other Diagnoses Ongoing CKD (chronic kidney disease) Diabetes Diabetic peripheral neuropathy History of lumbar spinal fusion Hyperlipemia Osteoarthritis Prostate hypertrophy Restless leg syndrome S/P cervical spinal fusion Type 2 diabetes mellitus Historical No qualifying data Operations and Procedures L4-5 fusion exploration. L2-3 Mckeon-Swift osteotomy for correction of sagittal deformity. (08/23/2023) L2-5 fusion expiration. L2 hardware removal. Image guided T10-L1 instrumentation. Replacement of the L2 pedicle screws with longer screws, globus Creo amp, 6.5 x 60. Reduction of L1-2 kyphotic deformity. T10-L2 arthrodesis. Use of [employer] image guidance. Use of motor and sensory evoked potentials. L1, L2 laminectomy for decompression of thecal sac [1] Consultants Inpt Anesthesiology Peripheral/Central Blockade Inpt Medicine Gastroenterology Inpt PMR Pending Labs None Discharge Disposition Home Medications New, Changed, or Refilled Medications acetaminophen (acetamino 1,000 mg, 2 Tablet(s), Oral, q8h, for 7 day(s), 42 Tablet(s), 0 Refill(s) bisacodyl (bisacodyl 10 10 mg, 1 Supp, Rectal, Daily, for 10 day(s), Hold for loose stools, PRN: constipation, 10 Supp, 0 Refill(s) Instructions:Hold for loose stools docusate-senna (docusate 2 Tablet(s), Oral, bid, for 14 day(s), Hold for loose stools, 56 Tablet(s), 0 Refill(s) Instructions:Hold for loose stools methocarbamol (methocarb 500 mg, 1 Tablet(s), Oral, q6h, for 7 day(s), 28 Tablet(s), 0 Refill(s) oxyCODONE (oxyCODONE 10 10 mg, 1 Tablet(s), Oral, q6h, for 7 day(s), 28 Tablet(s), 0 Refill(s) polyethylene glycol 3350 17 g, Oral, Daily, for 14 day(s), Hold for loose stools, PRN: Constipation, 14 Each, 0 Refill(s) Instructions:Hold for loose stools Medications to be Continued Glucose Meter 1 Each, Blood Test, AC and Bedtime, 1 Each, 0 Refill(s) Glucose Test Strips 1 Each, Blood Test, AC and Bedtime, 1 Each, 3 Refill(s) Miscellaneous Medication 1 capsule(s), Oral, Daily Miscellaneous Medication 1 capsule(s), Oral, Daily buPROPion (buPROPion 150 150 mg, 1 Tablet(s), Oral, Daily cholecalciferol (choleca 1 Tablet(s), Oral, Daily cyclobenzaprine (cyclobe 10 mg, 2 Tablet(s), Oral, tid, for 7 day(s), may take 1-2 tablets, PRN: as needed, 15 Tablet(s), 0 Refill(s) Instructions:may take 1-2 tablets dapagliflozin (Farxiga 1 10 mg, 1 Tablet(s), Oral, qAM, 0 Refill(s) fenofibrate (fenofibrate 145 mg, 1 Tablet(s), Oral, Daily finasteride (finasteride 5 mg, 1 Tablet(s), Oral, Daily gabapentin (gabapentin 3 900 mg, 3 capsule(s), Oral, tid, 270 capsule(s), 11 Refill(s) gemfibrozil (gemfibrozil 600 mg, 1 Tablet(s), Oral, bid AC glucose (glucose 4 g , c 16 g, 4 Tablet(s), Oral, As Indicated, for 30 day(s), may repeat in 15 to 20 minutes if blood sugar still < 60 mg/dL, PRN: Hypoglycemia, 50 Tablet(s), 0 Refill(s) Instructions:may repeat in 15 to 20 minutes if blood sugar still < 60 mg/dL multivitamin with minera 1 Tablet(s), Oral, Daily pramipexole (pramipexole 0.25 mg, 2 Tablet(s), Oral, bid zolpidem (zolpidem 5 mg) 5 mg, 1 Tablet(s), Oral, At Bedtime, PRN: as needed for sleep, 0 Refill(s) Discontinued Medications None Physical Exam at Discharge Vitals and Measurements T: 36.7 C TMIN: 36.4 C TMAX: 36.7 C HR: 62 RR: 16 BP: 116/72 SpO2: 99% Appears to comfortable Respiratory nonlabored Abdomen soft, lax, tender slightly on RUQ, but improved from previously Awake and oriented to person, place and time Pupils are equal and reactive, cranial nerves grossly intact Motor examination Drift: No drift in bilateral upper extremity 5/5 strength in bilateral upper extremity 5/5 strength in bilateral lower extremity 2+ reflexes in biceps, triceps, patellar, Achilles No Vincent's or ankle clonus Sensory examination Crude touch, pinprick in bilateral upper and lower extremity grossly intact Coordination/Gait Finger to nose movement intact/ Gait deferred Incision clean and dry , RAND Time Spent I spent a total of 45 min on the coordination of discharging this patient due to medication reconciliation patient/family education, follow-up care coordination, coordinating needed outpatient therapies and services as well as documentation. Follow Up Appointments Follow Up Appt Surgery Neurological, Follow up at Surgery Clinic with Beatrice BRANDON, Joesph Rodriguez Within 14 Days, Coordinate appt with No tests, Wound check, Originally referred by Yuri Donato No qualifying data available Nursing/Other Orders Outpatient - Physical Therapy Eval and Treat. 10/31/23 12:06:00 CDT, Eval and Treat, weakness, Location: PT - No Preference, Back pain L2 vertebral fracture Lumbar stenosis Neuropathic pain S/P spinal fusion, 92.9 kg, BMI 25.7 Outpatient - Physical Therapy Eval and Treat. 10/31/23 12:52:00 CDT, Eval and Treat, recommended by inpatient PT/OT, Location: PT - No Preference, Lumbar stenosis, 92.9 kg, BMI 25.7 [1] Op Note; Beatrice BRANDON, Joesph Rodriguez 10/25/2023 21:24 CDT 10/31/2023 Discharge Summary Date of Admission Date of Discharge 10/31/2023 Reason for Hospitalization Ron Hernandez was hospitalized for right groin pain and right anterior thigh pain with imaging of proximal junctional kyphosis with fracture of L2 above previous L2-5 fusion and stenosis for L1-2. Hospital Course Admitted on 10/24 for extension of L2-5 fusion, up to T10, L1-2 laminectomy. T10-L2 arthrodesis. Discharge Diagnoses Back pain L2 vertebral fracture Lumbar stenosis Ordered: Outpatient - Physical Therapy Eval and Treat Neuropathic pain S/P spinal fusion Severe pain Orders: oxyCODONE, 10 mg = 1 Tablet(s), Oral, q6h, # 28 Tablet(s), Refill(s) 0, Pharmacy: [facility], 190, cm, 10/25/23 23:48:00 CDT, Height (cm), kg, 10/25/23 23:48:00 CDT, Weight (kg), 92.9 Therapy Task Order - Outpatient PT Eval and Treat [facility] Therapy Task Order - Outpatient PT Eval and Treat Schedulable Other Diagnoses Ongoing CKD (chronic kidney disease) Diabetes Diabetic peripheral neuropathy History of lumbar spinal fusion Hyperlipemia Osteoarthritis Prostate hypertrophy Restless leg syndrome S/P cervical spinal fusion Type 2 diabetes mellitus Historical No qualifying data Operations and Procedures L4-5 fusion exploration. L2-3 Mckeon-Swift osteotomy for correction of sagittal deformity. (08/23/2023) Consultants Inpt Anesthesiology Peripheral/Central Blockade Inpt CC Medicare List Inpt Medicine Gastroenterology Inpt PMR Pending Labs None Discharge Disposition Home Medications New, Changed, or Refilled Medications acetaminophen (acetamino 1,000 mg, 2 Tablet(s), Oral, q8h, for 7 day(s), 42 Tablet(s), 0 Refill(s) bisacodyl (bisacodyl 10 10 mg, 1 Supp, Rectal, Daily, for 10 day(s), Hold for loose stools, PRN: constipation, 10 Supp, 0 Refill(s) Instructions:Hold for loose stools docusate-senna (docusate 2 Tablet(s), Oral, bid, for 14 day(s), Hold for loose stools, 56 Tablet(s), 0 Refill(s) Instructions:Hold for loose stools methocarbamol (methocarb 500 mg, 1 Tablet(s), Oral, q6h, for 7 day(s), 28 Tablet(s), 0 Refill(s) oxyCODONE (oxyCODONE 10 10 mg, 1 Tablet(s), Oral, q6h, for 7 day(s), 28 Tablet(s), 0 Refill(s) polyethylene glycol 3350 17 g, Oral, Daily, for 14 day(s), Hold for loose stools, PRN: Constipation, 14 Each, 0 Refill(s) Instructions:Hold for loose stools Medications to be Continued Glucose Meter 1 Each, Blood Test, AC and Bedtime, 1 Each, 0 Refill(s) Glucose Test Strips 1 Each, Blood Test, AC and Bedtime, 1 Each, 3 Refill(s) Miscellaneous Medication 1 capsule(s), Oral, Daily Miscellaneous Medication 1 capsule(s), Oral, Daily acetaminophen-oxyCODONE 1 Tablet(s), Oral, q6h, PRN: Pain, Severe, 56 Tablet(s), 0 Refill(s) bisacodyl (bisacodyl 10 10 mg, 1 Supp, Rectal, Daily, for 5 day(s), Hold for loose stools, 5 Supp, 0 Refill(s) Instructions:Hold for loose stools buPROPion (buPROPion 150 150 mg, 1 Tablet(s), Oral, Daily cholecalciferol (choleca 1 Tablet(s), Oral, Daily cyclobenzaprine (cyclobe 10 mg, 2 Tablet(s), Oral, tid, for 7 day(s), may take 1-2 tablets, PRN: as needed, 15 Tablet(s), 0 Refill(s) Instructions:may take 1-2 tablets dapagliflozin (Farxiga 1 10 mg, 1 Tablet(s), Oral, qAM, 0 Refill(s) fenofibrate (fenofibrate 145 mg, 1 Tablet(s), Oral, Daily finasteride (finasteride 5 mg, 1 Tablet(s), Oral, Daily gabapentin (gabapentin 3 900 mg, 3 capsule(s), Oral, tid, 270 capsule(s), 11 Refill(s) gabapentin (gabapentin 6 600 mg, 1 Tablet(s), Oral, tid gemfibrozil (gemfibrozil 600 mg, 1 Tablet(s), Oral, bid AC glucose (glucose 4 g , c 16 g, 4 Tablet(s), Oral, As Indicated, for 30 day(s), may repeat in 15 to 20 minutes if blood sugar still < 60 mg/dL, PRN: Hypoglycemia, 50 Tablet(s), 0 Refill(s) Instructions:may repeat in 15 to 20 minutes if blood sugar still < 60 mg/dL methocarbamol (methocarb 500 mg, 1 Tablet(s), Oral, q6h, for 7 day(s), 28 Tablet(s), 1 Refill(s) multivitamin with minera 1 Tablet(s), Oral, Daily pramipexole (pramipexole 0.25 mg, 2 Tablet(s), Oral, bid zolpidem (zolpidem 5 mg) 5 mg, 1 Tablet(s), Oral, At Bedtime, PRN: as needed for sleep, 0 Refill(s) Discontinued Medications None Physical Exam at Discharge Vitals and Measurements T: 36.7 C TMIN: 36.4 C TMAX: 37 C HR: 62 RR: 16 BP: 116/72 SpO2: 99% GEN: well-appearing, doesn't appear to be in any distress HEENT: NAD CVR: Breathing normally, unlabored ABD: Soft, nontender, nondistended Mental status A&O x3 (person, place, time) Motor RUE: 5/5 deltoid, 5/5 biceps, 5/5 triceps, 5/5 water sander RLE: 4/5 hip flexion, 4/5 knee extension, 4+/5 knee flexion, 5/5 dorsiflexion, 5/5 plantarflexion LUE: 5/5 deltoid, 5/5 biceps, 5/5 triceps, 5/5 water sander LLE: 5/5 hip flexion, 5/5 knee extension, 5/5 knee flexion, 5/5 dorsiflexion, 5/5 plantarflexion Cranial nerves: Grossly intact Sensory Improved sensation on L3-4 distribution on L side Time Spent 30 minutes Follow Up Appointments No qualifying data available Nursing/Other Orders Outpatient - Physical Therapy Eval and Treat. 10/31/23 12:06:00 CDT, Eval and Treat, weakness, Location: PT - No Preference, Back pain L2 vertebral fracture Lumbar stenosis Neuropathic pain S/P spinal fusion, 92.9 kg, BMI 25.7 Outpatient - Physical Therapy Eval and Treat. 10/31/23 12:52:00 CDT, Eval and Treat, recommended by inpatient PT/OT, Location: PT - No Preference, Lumbar stenosis, 92.9 kg, BMI 25.7 Regular Diet. Ordered on 10/27/23 19:01:00 CDT, Meal Start Time Supper 1615 to 1745 Intake and Output (I&O). 10/28/23 14:00:00 CDT, Continuous Order Fall Precautions. 10/30/23 1:42:12 CDT. Order comment: order placed from nursing documentation [email or web address]_FALL_[email or web address] Activity As Tolerated. 10/26/23 9:42:00 CDT, Continuous Order Out of Bed Activity. 10/28/23 14:00:00 CDT Out of Bed to Walk, tid, post op day zero - start afternoon (AM surgery) OR later afternoon/evening (PM surgery) 10/31/2023 Discharge Summary Date of Admission Date of Discharge 08/30/2023 Reason for Hospitalization L1-L3 pain. Also reports a shooting pain and numbness down left leg. no loss of bowel or bladder. no new injury or falls. has been needing to use a walker due to pain. Hospital Course Ron Hernandez is a 73-year-old male with PMH of CKD, diabetes mellitus type 2, history of C2-T2 fusion, L4-L5 TLIF who presented to ED for worsening back pain on 08/20. MRI showed central disc herniation L2-3 associated bilateral synovial cyst and severe stenosis above previous L3-4 decompression and L4-5 fusion. Patient underwent L4-5 fusion exploration, L2-3 osteotomy, redo L2-3 decompression for discectomy bilateral synovial cyst resection, L2-4 posterior frontal spinal fusion, and right-sided L2-3 interbody fusion, L2-4 posterior lateral autograft, L2-5 instrumentation on 08/22. Postoperatively Endocrinology was consulted for management of type 2 diabetes mellitus with hyperglycemia. Pt was complaining of severe pain and muscle spasms postop, not relieved by PRN and scheduled analgesics and muscle relaxers. Dexamethasone 6mg q6rh was added for 24 hours on 08/28 with improvement in his pain. Upright X-rays of the lumbar spine reviewed and with no acute findings. PT/OT evaluated the pt and recommended IPR before the steroids. Pt was reevaluated on 08/29 and was cleared for dc home with assistance. Pt reported that his is at home and can provide assistance for him. at bedside confirmed it. Pt and agreeable for discharge home. Pt scheduled to follow up in clinic with upright X-rays of lumbar spine in [address] Barron. Return precautions discussed. Discharge Diagnoses 1. Type 2 diabetes mellitus 2. Steroid-induced hyperglycemia Orders: bisacodyl, 10 mg = 1 Supp, Rectal, Daily, Hold for loose stools, # 5 Supp, Refill(s) 0, Pharmacy: [facility]/pharmacy #[id number], 190, cm, 08/23/23 12:44:00 CDT, Height (cm), kg, 08/23/23 12:44:00 CDT, Weight (kg), 97.2 cyclobenzaprine, 10 mg = 2 Tablet(s), Oral, tid, Scheduled / PRN PRN as needed, may take 1-2 tablets, # 15 Tablet(s), Refill(s) 0, Pharmacy: [facility]/pharmacy #[id number], 190, cm, 08/23/23 12:44:00 CDT, Height (cm), kg, 08/23/23 12:44:00 CDT, Weight (kg), 97.2 docusate-senna, 1 Tablet(s), Oral, q12h, Hold for loose stools, # 60 Tablet(s), Refill(s) 0, Pharmacy: [facility]/pharmacy #[id number], 190, cm, 08/23/23 12:44:00 CDT, Height (cm), kg, 08/23/23 12:44:00 CDT, Weight (kg), 97.2 glucose, 16 g = 4 Tablet(s), Oral, As Indicated, Scheduled / PRN PRN Hypoglycemia, may repeat in 15 to 20 minutes if blood sugar still < 60 mg/dL, # 50 Tablet(s), Refill(s) 0, [id number] 190, cm, 08/23/23 12:44:00 CDT, Height (cm), kg, 08/22... Glucose Meter, 1 Each, Blood Test, AC and Bedtime, 1 Each, 0 Refills, Refills 0, 08/30/23 13:57:00 CDT, Maintenance, [id number], Brand per pt/insurance preference, 1 Each Blood Test AC and Bedtime, 190, cm, 08/23/23 12:44:00 C... Glucose Test Strips, 1 Each, Blood Test, AC and Bedtime, 1 Each, 3 Refills, Refills 3, 08/30/23 13:57:00 CDT, Maintenance, [id number], Brand per pt/insurance preference, 1 Each Blood Test AC and Bedtime, 190, cm, 08/23/23 12:44:00 C... insulin glargine, 20 units, Subcutaneous, Daily, Use with pen needles, # 10 mL, Refill(s) 0, [id number] 190, cm, 08/23/23 12:44:00 CDT, Height (cm), kg, 08/23/23 12:44:00 CDT, Weight (kg), 97.2 methocarbamol, 500 mg = 1 Tablet(s), Oral, q6h, # 28 Tablet(s), Refill(s) 0, [id number], 190, cm, 08/23/23 12:44:00 CDT, Height (cm), kg, 08/23/23 12:44:00 CDT, Weight (kg), 97.2 polyethylene glycol 3350, 17 g =, Oral, Daily, Hold for loose stools, # 14 Each, Refill(s) 0, [id number] 190, cm, 08/23/23 12:44:00 CDT, Height (cm), kg, 08/23/23 12:44:00 CDT, Weight (kg), 97.2 semaglutide, 0.25 mg, Subcutaneous, qWeek, rotate injection sites, # 4 Each, Refill(s) 0, Pharmacy: [facility]/pharmacy #[id number], 190, cm, 08/23/23 12:44:00 CDT, Height (cm), kg, 08/23/23 12:44:00 CDT, Weight (kg), 97.2 Follow Up Appt Surgery Neurological XR Spine Lumbosacral Other Diagnoses Ongoing CKD (chronic kidney disease) Diabetes Diabetic peripheral neuropathy History of lumbar spinal fusion Hyperlipemia Osteoarthritis Prostate hypertrophy Restless leg syndrome S/P cervical spinal fusion Type 2 diabetes mellitus Historical No qualifying data Operations and Procedures 08/23/23 L4-5 fusion exploration. L2-3 Mckeon-Swift osteotomy for correction of sagittal deformity. Redo L2-3 decompression for discectomy, bilateral synovial cyst resection. Image guided L2-3 and L3-4 posterior spinal fusion with Orthofix fire bird pedicle screw instrumentation. Right-sided L2-3 interbody fusion with Zavation expandable cage. L2-4 posterolateral autograft. L2-5 instrumentation. Use of O-arm image guidance. Use of pedicle screw monitoring and running SSEPs. [1] Consultants Inpt Medicine Endocrinology Inpt PMR Pending Labs None Discharge Disposition Home Medications New, Changed, or Refilled Medications Glucose Meter 1 Each, Blood Test, AC and Bedtime, 1 Each, 0 Refill(s) Glucose Test Strips 1 Each, Blood Test, AC and Bedtime, 1 Each, 3 Refill(s) bisacodyl (bisacodyl 10 10 mg, 1 Supp, Rectal, Daily, for 5 day(s), Hold for loose stools, 5 Supp, 0 Refill(s) Instructions:Hold for loose stools cyclobenzaprine (cyclobe 10 mg, 2 Tablet(s), Oral, tid, for 7 day(s), may take 1-2 tablets, PRN: as needed, 15 Tablet(s), 0 Refill(s) Instructions:may take 1-2 tablets docusate-senna (docusate 1 Tablet(s), Oral, q12h, Hold for loose stools, 60 Tablet(s), 0 Refill(s) Instructions:Hold for loose stools glucose (glucose 4 g , c 16 g, 4 Tablet(s), Oral, As Indicated, for 30 day(s), may repeat in 15 to 20 minutes if blood sugar still < 60 mg/dL, PRN: Hypoglycemia, 50 Tablet(s), 0 Refill(s) Instructions:may repeat in 15 to 20 minutes if blood sugar still < 60 mg/dL insulin glargine (Lantus 20 units, Subcutaneous, Daily, for 30 day(s), Use with pen needles, 10 mL, 0 Refill(s) Comments: 1 Box = 15 mL (5 Pens) Instructions:Use with pen needles methocarbamol (methocarb 500 mg, 1 Tablet(s), Oral, q6h, for 7 day(s), 28 Tablet(s), 0 Refill(s) oxyCODONE (oxyCODONE 10 10 mg, 1 Tablet(s), Oral, q6h, for 7 day(s), 28 Tablet(s), 0 Refill(s) oxyCODONE (oxyCODONE 5 m 5 mg, 1 Tablet(s), Oral, q6h, for 1 day(s), 4 Tablet(s), 0 Refill(s) polyethylene glycol 3350 17 g, Oral, Daily, for 14 day(s), Hold for loose stools, 14 Each, 0 Refill(s) Instructions:Hold for loose stools semaglutide (Ozempic (0. 0.25 mg, Subcutaneous, qWeek, for 4 week(s), rotate injection sites, 4 Each, 0 Refill(s) Instructions:rotate injection sites Medications to be Continued Miscellaneous Medication 1 capsule(s), Oral, Daily Miscellaneous Medication 1 capsule(s), Oral, Daily Miscellaneous Medication 1 Tablet(s), Oral, Daily acetaminophen (Tylenol 3 650 mg, 2 Tablet(s), Oral, q4h, PRN: as needed, 0 Refill(s) buPROPion (buPROPion 150 150 mg, 1 Tablet(s), Oral, Daily cholecalciferol (choleca 1 Tablet(s), Oral, Daily dapagliflozin (Farxiga 1 10 mg, 1 Tablet(s), Oral, qAM, 0 Refill(s) fenofibrate (fenofibrate 145 mg, 1 Tablet(s), Oral, Daily finasteride (finasteride 5 mg, 1 Tablet(s), Oral, Daily gabapentin (gabapentin 3 900 mg, 3 capsule(s), Oral, tid, 270 capsule(s), 11 Refill(s) gabapentin (gabapentin 6 600 mg, 1 Tablet(s), Oral, tid gemfibrozil (gemfibrozil 600 mg, 1 Tablet(s), Oral, bid AC multivitamin with minera 1 Tablet(s), Oral, Daily naproxen (naproxen sodiu 220 mg, 1 capsule(s), Oral, q12h, PRN: as needed pramipexole (pramipexole 0.25 mg, 2 Tablet(s), Oral, bid zolpidem (zolpidem 5 mg) 5 mg, 1 Tablet(s), Oral, At Bedtime, PRN: as needed for sleep, 0 Refill(s) Discontinued Medications acetaminophen-oxyCODONE 1 Tablet(s), Oral, q6h, 60 Tablet(s), 0 Refill(s) glipiZIDE (glipiZIDE 10 10 mg, 1 Tablet(s), Oral, bid meloxicam (meloxicam 15 TAKE 1 TABLET (15 MG TOTAL) BY MOUTH DAILY. Physical Exam at Discharge Vitals and Measurements T: 36.5 C TMIN: 36.3 C TMAX: 36.5 C HR: 71 RR: 16 BP: 123/62 SpO2: 100% Awake and oriented to person, place and time Pupils are equal and reactive, cranial nerves grossly intact Pt in bed, resting Respiratory nonlabored, on room air Abdomen soft, lax, non-tender Motor examination Drift: No drift in bilateral upper extremity 5/5 strength in bilateral upper extremity 5/5 strength in bilateral lower extremity 2+ reflexes in biceps, triceps, patellar, Achilles No Vincent's or ankle clonus Time Spent I spent a total of 48 min on the coordination of discharging this patient due to medication reconciliation patient/family education, follow-up care coordination, coordinating needed outpatient therapies and services as well as documentation. Follow Up Appointments Follow Up Appt Surgery Neurological, Follow up at Surgery Clinic with Beatrice BRANDON, Joesph Rodriguez Within 1 Month, Coordinate appt with other Radiology, Originally referred by Yuri Donato No qualifying data available Nursing/Other Orders [1] Op Note; Joesph Barron MD 08/23/2023 19:36 CDT The patient was seen by my nurse practitioner/physician pathologist assistant. I agree with their evaluation, assessment, and plan as detailed above. Attestation by Joesph Barron MD on August 31, 2023 15:35 08/31/2023 History and Physicals Results Value Date Source History and Physical Chief Complaint OR for extension of L2-5 fusion, up to T10, L1-2 laminectomy. T10-L2 arthrodesis History of Present Illness Ron notes continuing right-sided low back pain, with right groin pain and right anterior thigh pain. Denies, numbness/tingling in R leg, but has baseline numbness on L leg. No complaints in upper extremity Review of Systems 14 point review of systems is negative other than that mentioned in the HPI. Physical Exam Vitals and Measurements T: 36.6 C HR: 62 RR: 18 BP: 142/75 SpO2: 100% WT: 90.0 kg GEN: well-appearing, doesn't appear to be in any distress HEENT: NAD CVR: Breathing normally, unlabored ABD: Soft, nontender, nondistended Mental status A&O x3 (person, place, time) Motor RUE: 5/5 deltoid, 5/5 biceps, 5/5 triceps, 5/5 water sander RLE: 4/5 hip flexion, 4/5 knee extension, 4+/5 knee flexion, 5/5 dorsiflexion, 5/5 plantarflexion LUE: 5/5 deltoid, 5/5 biceps, 5/5 triceps, 5/5 water sander LLE: 5/5 hip flexion, 5/5 knee extension, 5/5 knee flexion, 5/5 dorsiflexion, 5/5 plantarflexion Cranial nerves: Grossly intact Sensory Diminished sensation on L3-4 distribution on L side Assessment/Plan Lumbar stenosis Ron Hernandez is a 73 year old male with 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 He has stenosis at L1-2. Going to OR today for: extension of L2-5 fusion, up to T10, L1-2 laminectomy. T10-L2 arthrodesis / extension of L2-5 fusion, up to T10, L1-2 laminectomy. T10-L2 arthrodesis - OR today for extension of L2-5 fusion, up to T10, L1-2 laminectomy. T10-L2 arthrodesis Problem List/Past Medical History Ongoing CKD (chronic kidney disease) Diabetes Diabetic peripheral neuropathy History of lumbar spinal fusion Hyperlipemia Osteoarthritis Prostate hypertrophy Restless leg syndrome S/P cervical spinal fusion Type 2 diabetes mellitus Historical No qualifying data Procedure/Surgical History L4-5 fusion exploration. L2-3 Mckeon-Swift osteotomy for correction of sagittal deformity. (08/23/2023) C3-4 laminectomy. Right-sided C7-T1 laminectomy and C8 foraminotomies; C3-4 and C7-T2 arthrodesis. Right-sided C7-T1 synovial cyst resection (02/18/2023) C4-6 ACDF 2007 L3-5 laminectomy L3-5 laminectomy Laminectomy L2, L3. L4-5 fusion Medications Inpatient ceFAZolin, 2 g, IV Push, [place] Lidocaine 1% inj solution (PF), 10 mg= 1 mL, IntraDermal, As Directed, PRN LR 1,000 mL, 1000 mL, IV metoprolol+, 5 mg= 5 mL, IV Push, PreOp, PRN Home bisacodyl 10 mg rectal suppository, 10 mg= 1 Supp, Rectal, Daily buPROPion 150 mg/24 hours (XL) oral tablet, extended release, 150 mg= 1 Tablet(s), Oral, Daily Centrum Silver oral tablet, 1 Tablet(s), Oral, Daily cholecalciferol oral tablet, 1 Tablet(s), Oral, Daily cyclobenzaprine 5 mg oral tablet, 10 mg= 2 Tablet(s), Oral, tid, PRN Farxiga 10 mg oral tablet, 10 mg= 1 Tablet(s), Oral, qAM fenofibrate 145 mg oral tablet, 145 mg= 1 Tablet(s), Oral, Daily finasteride 5 mg oral tablet, 5 mg= 1 Tablet(s), Oral, Daily gabapentin 300 mg oral capsule, 900 mg= 3 capsule(s), Oral, tid, 11 refills gabapentin 600 mg oral tablet, 600 mg= 1 Tablet(s), Oral, tid gemfibrozil 600 mg oral tablet, 600 mg= 1 Tablet(s), Oral, bid AC glucose 4 g oral tablet, chewable, 16 g= 4 Tablet(s), Oral, As Indicated, PRN Glucose Meter, 1 Each, Blood Test, AC and Bedtime Glucose Test Strips, 1 Each, Blood Test, AC and Bedtime, 3 refills methocarbamol 500 mg oral tablet, 500 mg= 1 Tablet(s), Oral, q6h methocarbamol 500 mg oral tablet, 500 mg= 1 Tablet(s), Oral, q6h, 1 refills MiraLax oral powder for reconstitution, 17 g, Oral, Daily Percocet 10 mg-325 mg oral tablet, 1 Tablet(s), Oral, q6h, PRN pramipexole 0.125 mg oral tablet, 0.25 mg= 2 Tablet(s), Oral, bid Vitamin A oral capsule, 1 capsule(s), Oral, Daily Vitamin E oral capsule, 1 capsule(s), Oral, Daily zolpidem 5 mg oral tablet, 5 mg= 1 Tablet(s), Oral, At Bedtime, PRN Allergies metFORMIN (Upset stomach) Social History Smoking Status Never smoker Family History Immunizations Lab Results Diagnostic Results 10/25/2023 History and Physical Chief Complaint L1 -L3 pain. Also reports a shooting pain and numbness down left leg. no loss of bowel or bladder. no new injury or falls. has been needing to use a walker due to pain. Reason for Consultation Acute worsening of chronic back pain History of Present Illness 73year old man with h/o CKD, DM, HLD, BPH, C2-T2 fusion, L4-5 TLIF presented with acute worsening of his LBP. Patient was last seen in clinic on 08/11/23 and has scheduled to undergo L2-3 TLIF, removal of L4-5 hardware and L2-5 instrumentation. Patient states that he could not tolerate back pain. Denies any new tingling, numbness or paresthesias. Denies any new or worsening weakness in the extremities. Denies bowel or bladder issues. Physical Exam Vitals and Measurements T: 36 C HR: 67 RR: 18 BP: 132/67 SpO2: 95% WT: 97 kg GENERAL: In acute distress HEENT: Normocephalic, atraumatic. CARDIOVASCULAR: Normal rate and rhythm. RESPIRATORY: Symmetrical chest rise, nonlabored. GASTROINTESTINAL: Soft, nontender, rounded. EXTREMITIES: Warm. No edema NEUROLOGIC: Mental Status: -Alert and fully oriented to person, place, time, and situation -Language and speech is clear and fluent Cranial Nerve Examination: -CN II: PERRLA, visual estrada are full to confrontation, 3 mm bilaterally brisk pupils. -CN III, IV, : EOMI without nystagmus, no ptosis. -CN V: Intact facial sensation, masseters and temporalis have normal bulk and strength. -CN VII: Facial movements are symmetrical. -CN VIII: Hearing is intact to conversational level of speech and finger rub. -CN IX, X: Midline uvula, palate elevates symmetrically, speech is clear. -CN XI: Head turns and shoulder shrugs are symmetrical bilaterally, normal bulk SCM's and trapezii. -CN XII: Tongue protrudes in the midline. Motor: -LOVING x4 with 5/5 muscle strength throughout *UE R: 5/5 Deltoid, 5/5 Biceps, 5/5 Triceps, 5/5 Wrist Extension, 5/5 Hand Rn Observation, 5/5 Finger Abduction *UE L: 5/5 Deltoid, 5/5 Biceps, 5/5 Triceps, 5/5 Wrist Extension, 5/5 Hand Rn Observation, 5/5 Finger Abduction *LE R: 4/5 Iliopsoas, 5/5 Quadriceps, 5/5 Hamstrings, 5/5 Dorsiflexion, 5/5 EHL, 5/5 Plantarflexion *LE L: 4/5 Iliopsoas, 5/5 Quadriceps, 5/5 Hamstrings, 5/5 Dorsiflexion, 4/5 EHL, 5/5 Plantarflexion Assessment/Plan 73year old man with h/o C4-6 ACDF 2007, C3-T2 PCF, L3-5 lami and L4-5 TLIF scheduled for L2-3 TLIF, removal of L4-5 cage and L2-5 posterolateral fusion presented with acute worsening of his chronic LBP. No other symptoms. Stable neurological exam. -Obs for pain control -NPO, IVF -Will follow. Problem List/Past Medical History Ongoing CKD (chronic kidney disease) Diabetes Diabetic peripheral neuropathy History of lumbar spinal fusion Hyperlipemia Osteoarthritis Prostate hypertrophy Restless leg syndrome S/P cervical spinal fusion Type 2 diabetes mellitus Historical No qualifying data Procedure/Surgical History C3-4 laminectomy. Right-sided C7-T1 laminectomy and C8 foraminotomies; C3-4 and C7-T2 arthrodesis. Right-sided C7-T1 synovial cyst resection (02/18/2023) C4-6 ACDF 2007 L3-5 laminectomy L3-5 laminectomy Laminectomy L2, L3. L4-5 fusion Medications Inpatient No active inpatient medications Home Ascorbic Acid (Vitamin C) oral tablet, 1 Tablet(s), Oral, Daily buPROPion 150 mg/24 hours (XL) oral tablet, extended release, 150 mg= 1 Tablet(s), Oral, Daily Centrum Silver oral tablet, 1 Tablet(s), Oral, Daily cholecalciferol oral tablet, 1 Tablet(s), Oral, Daily cyclobenzaprine 5 mg oral tablet, 10 mg= 2 Tablet(s), Oral, At Bedtime, PRN Farxiga 10 mg oral tablet, 10 mg= 1 Tablet(s), Oral, qAM fenofibrate 145 mg oral tablet, 145 mg= 1 Tablet(s), Oral, Daily finasteride 5 mg oral tablet, 5 mg= 1 Tablet(s), Oral, Daily gabapentin 300 mg oral capsule, 900 mg= 3 capsule(s), Oral, tid, 11 refills gabapentin 600 mg oral tablet, 600 mg= 1 Tablet(s), Oral, tid gemfibrozil 600 mg oral tablet, 600 mg= 1 Tablet(s), Oral, bid AC glipiZIDE 10 mg oral tablet, 10 mg= 1 Tablet(s), Oral, bid meloxicam 15 mg oral tablet naproxen sodium 220 mg oral capsule, 220 mg= 1 capsule(s), Oral, q12h, PRN Percocet 10 mg-325 mg oral tablet, 1 Tablet(s), Oral, q6h pramipexole 0.125 mg oral tablet, 0.25 mg= 2 Tablet(s), Oral, bid Tylenol 325 mg oral tablet, 650 mg= 2 Tablet(s), Oral, q4h, PRN Vitamin A oral capsule, 1 capsule(s), Oral, Daily Vitamin E oral capsule, 1 capsule(s), Oral, Daily zolpidem 5 mg oral tablet, 5 mg= 1 Tablet(s), Oral, At Bedtime, PRN Allergies metFORMIN (Upset stomach) Social History Smoking Status Never smoker Family History Immunizations Lab Results Diagnostic Results MRI Lumbar spine personally reviewed from 08/09/2023 and showed a large herniated disc at L2-[address] Lumbar spine with L4-5 TLIF and PSF. Please note, this patient was seen in conjunction with the resident neurosurgeon. In addition to the resident's exam, I took my own history, examined the patient, reviewed the radiographic studies, and came to an independent assessment and plan as detailed above. We will plan for surgical intervention tomorrow afternoon, August 22. Attestation by Beatrice BRANDON, Joesph Rodriguez on August 22, 2023 09:02 08/21/2023 Vital Signs Vital Sign Value Date Comments Source Temperature (Celsius) 36.7 [place] 12/22/2023 16:01:00 [facility] Heart Rate 64 bpm 12/22/2023 16:01:00 [facility] SBP NIBP 144 mm[Hg] 12/22/2023 16:01:00 [facility] DBP NIBP 73 mm[Hg] 12/22/2023 16:01:00 [facility] Temperature (Celsius) 36.7 [place] 10/31/2023 17:00:00 [facility] Heart Rate 62 bpm 10/31/2023 17:00:00 [facility] Respiratory Rate 16 breaths/min 10/31/2023 17:00:00 [facility] SBP NIBP 116 mm[Hg] 10/31/2023 17:00:00 [facility] DBP NIBP 72 mm[Hg] 10/31/2023 17:00:00 [facility] Mean NIBP 87 mm[Hg] 10/31/2023 17:00:00 [facility] SpO2 99 % 10/31/2023 17:00:00 [facility] SBP NIBP 110 mm[Hg] 10/31/2023 14:51:11 [facility] DBP NIBP 67 mm[Hg] 10/31/2023 14:51:11 [facility] Mean NIBP 81 mm[Hg] 10/31/2023 14:51:11 [facility] Heart Rate 70 bpm 10/31/2023 14:51:11 [facility] SpO2 98 % 10/31/2023 14:51:11 [facility] Temperature (Celsius) 36.4 Komal 10/31/2023 14:51:11 [facility] Respiratory Rate 16 breaths/min 10/31/2023 14:51:11 [facility] SBP NIBP 129 mm[Hg] 10/31/2023 09:21:43 [facility] DBP NIBP 73 mm[Hg] 10/31/2023 09:21:43 [facility] Mean NIBP 92 mm[Hg] 10/31/2023 09:21:43 [facility] Heart Rate 58 bpm 10/31/2023 09:21:43 [facility] SpO2 96 % 10/31/2023 09:21:43 [facility] Temperature (Celsius) 36.8 Komal 10/31/2023 09:21:43 [facility] Respiratory Rate 14 breaths/min 10/31/2023 09:21:43 [facility] SBP NIBP 122 mm[Hg] 10/31/2023 05:30:30 [facility] DBP NIBP 65 mm[Hg] 10/31/2023 05:30:30 [facility] Mean NIBP 84 mm[Hg] 10/31/2023 05:30:30 [facility] Heart Rate 67 bpm 10/31/2023 05:30:30 [facility] SpO2 97 % 10/31/2023 05:30:30 [facility] Temperature (Celsius) 37 Komal 10/31/2023 05:30:30 [facility] Respiratory Rate 18 breaths/min 10/31/2023 05:30:30 [facility] Weight (kg) 92.9 kg 10/26/2023 04:48:00 [facility] Height (cm) 190 cm 10/26/2023 04:48:00 [facility] BMI 25.7 kg/m2 10/26/2023 04:48:00 [facility] Weight (kg) 92.9 kg 10/26/2023 04:00:00 [facility] Weight (kg) 90.0 kg 10/25/2023 16:24:00 [facility] Height (cm) 190 cm 10/25/2023 16:14:00 [facility] Temperature (Celsius) 36.5 Komal 10/10/2023 22:00:00 [facility] Heart Rate 57 bpm 10/10/2023 22:00:00 [facility] SBP NIBP 135 mm[Hg] 10/10/2023 22:00:00 [facility] DBP NIBP 81 mm[Hg] 10/10/2023 22:00:00 [facility] Temperature (Celsius) 36.5 Komal 08/30/2023 17:00:00 [facility] Heart Rate 71 bpm 08/30/2023 17:00:00 [facility] Respiratory Rate 16 breaths/min 08/30/2023 17:00:00 [facility] SpO2 100 % 08/30/2023 17:00:00 [facility] Mean NIBP 83 mm[Hg] 08/30/2023 17:00:00 [facility] SBP NIBP 123 mm[Hg] 08/30/2023 17:00:00 [facility] DBP NIBP 62 mm[Hg] 08/30/2023 17:00:00 [facility] SBP NIBP 157 mm[Hg] 08/30/2023 12:55:38 [facility] DBP NIBP 84 mm[Hg] 08/30/2023 12:55:38 [facility] Mean NIBP 108 mm[Hg] 08/30/2023 12:55:38 [facility] Heart Rate 71 bpm 08/30/2023 12:55:38 [facility] SpO2 97 % 08/30/2023 12:55:38 [facility] Temperature (Celsius) 36.3 Komal 08/30/2023 12:55:38 [facility] Respiratory Rate 15 breaths/min 08/30/2023 12:55:38 [facility] SBP NIBP 150 mm[Hg] 08/30/2023 09:46:30 [facility] DBP NIBP 70 mm[Hg] 08/30/2023 09:46:30 [facility] Mean NIBP 96 mm[Hg] 08/30/2023 09:46:30 [facility] Heart Rate 77 bpm 08/30/2023 09:46:30 [facility] SpO2 96 % 08/30/2023 09:46:30 [facility] Temperature (Celsius) 36.4 Komal 08/30/2023 09:46:30 [facility] Temperature (Celsius) 36.7 Komal 08/30/2023 06:00:00 [facility] Heart Rate 70 bpm 08/30/2023 06:00:00 [facility] SBP NIBP 143 mm[Hg] 08/30/2023 06:00:00 [facility] DBP NIBP 68 mm[Hg] 08/30/2023 06:00:00 [facility] SpO2 96 % 08/30/2023 06:00:00 [facility] Respiratory Rate 18 breaths/min 08/30/2023 01:00:00 [facility] Mean NIBP 97 mm[Hg] 08/30/2023 01:00:00 [facility] Respiratory Rate 18 breaths/min 08/29/2023 21:00:00 [facility] [place] Body Weight 88.6 kg 08/29/2023 19:12:00 [facility] Height (cm) 190 cm 08/23/2023 17:42:00 [facility] Weight (kg) 97.2 kg 08/23/2023 17:42:00 [facility] Height (cm) 190 cm 08/23/2023 17:19:00 [facility] Height (cm) 190 cm 08/22/2023 13:00:00 [facility] Height (cm) 190 cm 08/21/2023 21:00:00 [facility] Report Given to rn 08/21/2023 18:57:00 [facility] Weight (kg) 97.2 kg 08/21/2023 13:57:00 [facility] BMI 26.9 kg/m2 08/21/2023 13:57:00 [facility] Weight (kg) 97.2 kg 08/21/2023 13:04:00 [facility] Report Given to ROCIO Patel 08/21/2023 08:15:00 [facility] Weight (kg) 97 kg 08/21/2023 00:53:00 [facility] Temperature (Celsius) 36.7 Komal 08/11/2023 14:34:00 [facility] Heart Rate 64 bpm 08/11/2023 14:34:00 [facility] SBP NIBP 129 mm[Hg] 08/11/2023 14:34:00 [facility] DBP NIBP 79 mm[Hg] 08/11/2023 14:34:00 [facility] Encounters Location Location Details Encounter Type Encounter Number Reason For Visit Attending Provider ADM Date DC Date Status Source [facility] Between Visit [id number] 06/06 13:03 :59 06/07 04:59 :59 [facility] Between Visit [id number] 06/21 14:54 :14 06/22 04:59 :59 [facility] MICHELLE MICHELLE Clinic [id number] CERVICAL SPINE F/U Joesph Beatrice 08/10 08:34 :38 08/10 23:59 :59 Active [facility] Phys[facility] Surgery Clinic [facility] Outpatient [id number] Yuri Donato 08/10 15:43 :36 08/11 04:59 :59 [place] [facility]HELLE MICHELLE Virtual Care [id number] imaging f/u Joesph Beatrice 08/15 13:00 :00 08/15 23:59 :59 Active [facility] Surg Neurologica l Surgery Between Visit [id number] 08/15 13:26 :36 08/16 04:59 :59 [facility] Surg Neurologica l Surgery Between Visit [id number] 08/15 13:29 :17 08/16 04:59 :59 [facility] Surg Neurologica l Surgery Between Visit [id number] 08/18 13:34 :51 08/19 04:59 :59 [facility] Surg Neurologica l Surgery Between Visit [id number] 08/18 16:36 :11 08/19 04:59 :59 [facility] Inpatient [id number] PAIN - BACK Joesph Barron 08/19 19:40 :35 08/29 15:11 :00 Active [facility] PreAdmit [id number] Joesph Barron 08/22 11:00 :00 10/22 04:59 :59 [facility] Nurse Phone Call Clinic [id number] Antonio Young 08/22 12:48 :18 08/23 04:59 :59 [facility] Between Visit [id number] 09/26 20:36 :44 09/27 04:59 :59 [facility] Surg Neurologica l Surgery Between Visit [id number] 10/09 13:37 :10 10/10 04:59 :59 [facility] Outpatient [id number] Yuri Donato 10/09 17:20 :02 10/10 04:59 :59 [place] [facility] Outpatient [id number] Yuri Donato 10/09 18:23 :31 10/10 04:59 :59 [place] [facility] Surg Neurologica l Surgery Clinic [id number] Joesph Barron 10/09 21:35 :12 10/10 04:59 :59 [facility] Nurse Phone Call Clinic [id number] Antonio Young 10/24 12:55 :23 10/25 04:59 :59 [facility] Inpatient [id number] Issac Denisse 10/24 14:19 :41 10/30 20:15 :00 [facility] Between Visit [id number] 12/14 16:32 :22 12/15 04:59 :59 [facility] Surg Neurologica l Surgery Clinic [id number] Joesph Barron 12/21 15:28 :24 12/22 04:59 :59 [facility] MU Surg Neurologica l Surgery Non-Admit [id number] Joesph Barron 06/04 15:45 :00 06/05 04:59 :59 [facility] Procedures Procedure Code Date Perfomer Comments Source L4-5 fusion exploration. L2-3 Mckeon-Swift osteotomy for correction of sagittal deformity. 08/23/2023 05:00:00 [facility] Laminectomy L2, L3. L4-5 fusion [facility] L3-5 laminectomy [facility] C4-6 ACDF 2008 [facility] Social History Social History Date Source No data available for this section 06/05/2024 [facility] No data available for this section 12/23/2023 [facility] No data available for this section 12/16/2023 [facility] No data available for this section 10/31/2023 [facility] No data available for this section 10/26/2023 [facility] No data available for this section 10/23/2023 [facility] No data available for this section 10/11/2023 [facility] No data available for this section 09/28/2023 [facility] No data available for this section 08/30/2023 [facility] No data available for this section 08/24/2023 [facility] No data available for this section 08/20/2023 [facility] No data available for this section 08/17/2023 [facility] No data available for this section 08/12/2023 [facility] No data available for this section 06/23/2023 [facility] No data available for this section 06/08/2023 [facility]
--- OUTSIDE RECORDS SUMMARY | 2024-06-06 01:04 | XMS_ITS | Encounter Summary ---
Author Organization [facility] Address [address] [place] [address] Care Team Providers Care Manager Financial Systems Name Role Phone Salo Kelly MD Primary Care Provider [phone] Jose Zazueta MD Unavailable [phone] Lucas Rivers MD Primary Care Provider [phone] Encounter Details Date Type Department Care Team (Late st Contact Info) Description 06/16/[address] [employer] [address] 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 * Doretha Bennett RN - 06/26/2020 9:18 AM CDT Called and left VM on Yoandy's cell informing her of appt. Encouraged her to return call to change appt if that does not work. * Doretha Bennett RN - 06/24/2020 10:22 AM CDT Called and left VM for Yoandy to inform her of appt time and date for patient. Encouraged her to return call with any questions or problems. documented in this encounter Plan of Treatment Upcoming Encounters Date Type Department Care Team (Late st Contact Info) Description 06/08/2024 7:[address] [facility] [address] [place] [address] [place] [address] [place] [address] [place] [address] [place] [address] 06/12/2024 11:[address] [facility] [address] [place] [address] [place] [address] [place] [address] Albert Mcmahon MD [address] [address] 06/19/2024 10:[address] [facility] [address] [place] [address] [place] [address] [place] [address] Albert Mcmahon MD [address] [address] 06/21/2024 9:[address] [facility] [address] [place] [address] [place] [address] [place] [address] Albert Mcmahon MD [address] [address] 06/25/2024 9:[address] [facility] [address] [place] [address] [place] [address] [place] [address] Albert Mcmahon MD [address] [address] 06/28/2024 9:[address] [facility] [address] [place] [address] [place] [address] [place] [address] Albert Mcmahon MD [address] [address] 07/02/2024 9:[address] [facility] [address] [place] [address] [place] [address] [place] [address] Albert Mcmahon MD [address] [address] 07/05/2024 11:[address] [facility] [address] [place] [address] [place] [address] [place] [address] Albert Mcmahon MD [address] [id number] 07/09/2024 11:[address] [facility] [address] [place] [address] [place] [address] [place] [address] Albert Mcmahon MD [address] [id number] documented as of this encounter Visit Diagnoses Not on filedocumented in this encounter Additional Health Concerns Infection Onset Date Last Indicated Resolved Time COVID-19 Rule Out 11/28/2020 11/28/2020 11/29/2020 9:21 PM CDT Assessment Noted Time PHQ-9 Depression Total Score: 0 05/07/19 9:44 AM BOTTLE HOUSE QUALITY CONTROL TECHNICIAN documented as of this encounter Care Teams Manager Financial Systems Relationship Specialty Start Date End Date Salo Kelly MD PCP - General INTERNAL MEDICINE 05/10/17 05/03/21 [place] [address] [place] [address] PCP - General FAMILY PRACTICE 05/04/21 Jose Zazueta MD [facility]. [address] [address] [employer]aste[employer] CARDIOVASCULAR DISEASE 05/10/17 documented as of this encounter
--- OUTSIDE RECORDS SUMMARY | 2024-06-06 01:04 | XMS_ITS | Encounter Summary ---
Author Organization [facility] Address [address] [place] [address] Care Team Providers Care Laborer Filter Plant Name Role Phone Jose Zazueta MD Unavailable [phone] Lucas Rivers MD Primary Care Provider [phone] Encounter Details Date Type Department Care Team (Late st Contact Info) Description 02/21/2022 Per[employer] Message [facility] Family & Internal Medicine [facility] [address] [place] [address] [place] [id number] [place] [address] 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 Legal Sex Male 7:06 PM CDT Gender Identity Not on file Sexual Orientation Not on file Occupation Industry Job Start Date Job End Date suarez Not on file Not on file Not on file documented as of this encounter Plan of Treatment Upcoming Encounters Date Type Department Care Team (Late st Contact Info) Description 06/08/2024 7:00 AM CDT Appointment [facility] [address] [place] [address] [place] [address] [place] [address] [place] [address] [place] [address] 06/12/2024 11:00 AM CDT Appointment [facility] [address] [place] [address] [place] [address] [place] [address] Albert Mcmahon MD [address] [address] 06/19/2024 10:15 AM CDT Appointment [facility] [address] [place] [address] [place] [address] [place] [address] Albert Mcmahon MD [address] [address] 06/21/2024 9:30 AM CDT Appointment [facility] [address] [place] [address] [place] [address] [place] [address] Albert Mcmahon MD [address] [address] 06/25/2024 9:45 AM CDT Appointment [facility] [address] [place] [address] [place] [address] [place] [address] Albert Mcmahon MD [address] [address] 06/28/2024 9:45 AM CDT Appointment [facility] [address] [place] [address] [place] [address] [place] [address] Albert Mcmahon MD [address] [address] 07/02/2024 9:30 AM CDT Appointment [facility] [address] [place] [address] [place] [address] [place] [address] Albert Mcmahon MD [address] [address] 07/05/2024 11:15 AM CDT Appointment [facility] [address] [place] [address] [place] [address] [place] [address] Albert Mcmahon MD [address] [facility] [address] [place] [address] 07/09/2024 11:15 AM CDT Appointment [facility] [address] [place] [address] [place] [address] [place] [address] Albert Mcmahon MD [address] [facility] [address] [place] [address] documented as of this encounter Visit Diagnoses Not on filedocumented in this encounter Additional Health Concerns Assessment Noted Time PHQ-9 Depression Total Score: 0 06/16/19 22 7:14 AM CDT documented as of this encounter Care Teams Laborer Filter Plant Relationship Specialty [place] [address] [place] [address] PCP - General FAMILY PRACTICE 05/04/21 Jose Zazueta MD [facility]. [facility] [address] [place] [address] Robin Assembled Wood Products Repairer CARDIOVASCULAR DISEASE 05/10/17 documented as of this encounter
--- OUTSIDE RECORDS SUMMARY | 2024-06-06 01:05 | XMS_ITS | Clinical Summary ---
Author Organization [facility] Address [address] [place] [address] Care Team Providers Care Neuro Psych Sales Specialist Name Role Phone Kris Godinez MD Unavailable [phone] Kris Godinez MD Unavailable [phone] Salo Kelly MD Primary Care Provider [phone] Source Comments [facility],non-owned Affiliates and Associated Physician Practices is amultiple site organization consisting of ambulatory clinics and hospital sitesin [place], [place], [place] and [place]. This disclosure is being madepursuant to the Care Everywhere program and may not contain all information available regarding this patient. Last updated 17.[facility] Allergies Active Allergy Reactions Criticality Noted Date Comments Metformin GI Discomfort,Headache Low 08/18/2019 Medications * Be aware that medications may not be up to date on this document. Alwaysverify current medications with the patient. Medication Sig Dispensed Refills Start Date End Date Status finasteride (PROSCAR) 5 MG tablet Take 5 mg by mouth once daily. Active fenofibrate (TRICOR) 145 MG tablet Take 145 mg by mouth once daily. Active venlafaxine (EFFEXOR) 75 MG tablet Take 75 mg by mouth 3 times daily with meals. Active aspirin 81 MG tablet Take 81 mg by mouth once daily. Active fish oil/omega-3 fatty acids (FISH OIL) 1000 MG capsule Take 1,000 mg by mouth 2 times daily. Active multivitamins (ONE A DAY) capsule Take 1 Cap by mouth once daily. Active atorvastatin (LIPITOR) 10 MG tablet Take 10 mg by mouth once daily 08/21/2019 Active buPROPion XL 24hr (WELLBUTRIN-XL) 150 MG tablet TAKE 1 TABLET BY MOUTH EVERY DAY 03/24/2018 Active dicyclomine (BENTYL) 20 MG tablet Take 20 mg by mouth 03/19/2018 Active gabapentin (NEURONTIN) 300 MG capsule TAKE 3 CAPSULES BY MOUTH AT BEDTIME 08/14/2019 Active glipiZIDE (GLUCOTROL) 10 MG tablet Take 10 mg by mouth 2 times daily 06/25/2019 Active zolpidem (AMBIEN) 5 MG tablet Take 5 mg by mouth nightly as needed FOR SLEEP 08/21/2019 Active meloxicam (MOBIC) 7.5 MG tablet TAKE 1 TABLET BY MOUTH TWICE A DAY 60 tablet 04/06/2021 Active Active Problems Problem Noted Date Diagnosed Date Primary osteoarthritis of left knee 09/28/2019 Diabetic neuropathy 05/07/2019 Insomnia 09/18/2018 Overview (09/28/2019): Last Assessment & Plan: Will trial zolpidem for relief of symptoms, 30 days provided, to call with an update in the next month. Diabetes mellitus type 2, uncontrolled, with com plications 11/28/2017 Overview (09/28/2019): Transitioned From: Diabetes mellitus type 2, controlled, with complications Last Assessment & Plan: Gabe remains controlled, at his previous hemoglobin A1c level. Provided contact information for dietary guidance, continue current medications, recheck in 3 months and consider bolstering therapy if indicated. Osteoarthrosis involving lower leg 02/08/2013 Overview (06/14/2015): 2015 IMO Up[employer] Social History Tobacco Use Types Packs/Day Years Used Date Smoking Tobacco: Unknown Alcohol Use Standard Drinks/Week Comments Not Asked 0 (1 standard drink = 0.6 oz pur e alcohol) Sex and Gender Information Value Date Recorded Sex Assigned at Not on file Gender Identity Not on file Sexual Orientation Not on file Last Filed Vital Signs Vital Sign Reading Time Taken Comments Blood Pressure - - Pulse - - Temperature - - Respiratory Rate - - Oxygen Saturation - - Inhaled Oxygen Concentration - - Weight 97.5 kg (215 lb) 09/27/2019 2:45 PM CDT Height 193 cm (6' 4 ) 09/27/2019 2:45 PM CDT Body Mass Index 26.17 09/27/2019 2:45 PM CDT Plan of Treatment Health Maintenance Due Date Last Done Comments COLOGUARD (AGES 45-75) - COLON CA SCREENING 1948 COLON MONITORING 1948 COLONOSCOPY - COLON CA SCREENING 1948 CT COLONOGRAPHY - COLON CA SCREENING 1948 Colorectal Cancer Screening 1948 FIT - COLON CA SCREENING 1948 FLEX SIG - COLON CA SCREENING 1948 HEPATITIS C SCREENING 05/11/1966 DIABETES-SERUM CREATININE 1966 DTAP/TDAP/TD VACCINES (1 - Tdap) 1967 PNEUMOCOCCAL VACCINE 50+ (1 of 2 - PCV) 1967 ZOSTER VACCINE (1 of 2) 1998 DIABETES RETINOPATHY SCREENING 09/28/2019 DIABETES-FOOT EXAM WITH MONOFILAMENT 09/28/2019 DIABETES-HGB A1C 02/16/2020 08/16/2019 Respiratory Syncytial Virus (RSV) Vaccine Pt: or over 60 yrs (1 - 1-dose 75+ series) 2023 COVID-19 VACCINE (1 - 2023- season) 2023 INFLUENZA VACCINE (#1) 2023 9, 11/28/2017, 12/01/2016, Additional history exists DEPRESSION SCREENING 03/21/2024 DIABETES - URINE PROTEIN SCREENING 03/21/2024 HEPATITIS B VACCINE Aged Out No longe r eligible based on patient's age to complete this topic HIB VACCINE Aged Out No longer eligi ble based on patient's age to complete this topic HPV VACCINE Aged Out No longer eligi ble based on patient's age to complete this topic MENINGOCOCCAL (Group B) VACCINE SHARED DECISION-MAKING Aged Out No longer eligible based on patient's age to complete this topic MENINGOCOCCAL GROUPS A/C/Y/W VACCINE Aged Out No longer eligible based on patient's age to complete this topic Care Teams Neuro Psych Sales Specialist Relationship Specialty Start Date End Date Salo Kelly MD [address] [place] [address] PCP - General Internal Medicine 01/17/20 [place] [address] [place] [address] Orthopedic Surgery 02/08/13 [place] [address] [place] [address] Orthopedic Surgery 09/27/19
--- OUTSIDE RECORDS SUMMARY | 2024-06-06 01:05 | XMS_ITS | Referral Summary ---
Author Organization [facility] Address [address] [place] [address] Care Team Providers Care Trading Specialist Name Role Phone Miscellaneous, Not In File Primary Care Provider Unavailable Manuel Chu MD Unavailable [phone] Allergies Active Allergy Reactions Criticality Noted Date Comments Metformin Stomach upset,Headache Low 08/18/2019 Medications buPROPion XL (WELLBUTRIN XL) 150 mg 24 hr tablet Take 1 tablet (150 mg total) by mouth every morning 12/07/19 21 Active fenofibrate nanocrystallized (TRICOR) 145 mg tablet Take 1 tablet (145 mg total) by mouth daily Active finasteride (PROSCAR) 5 mg tablet 11/23/19 21 Active gabapentin (NEURONTIN) 300 mg capsule 11/26/19 21 Active glipiZIDE (GLUCOTROL) 10 mg tablet Take 1 tablet (10 mg total) by mouth 2 (two) times a day before breakfast and lunch 12/17/19 21 Active dapagliflozin (FARXIGA) 5 mg tablet 1 tablet (5 mg total) Active blood glucose diagnostic (glucose blood) strip Use as instructed to test blood sugar once daily. 02/25/20 18 Active atorvastatin (LIPITOR) 10 mg tablet Take 1 tablet (10 mg total) by mouth daily 08/04/19 22 Active cholecalciferol (VITAMIN D-3) 25 mcg (1,000 unit) tablet Take 1 tablet (1,000 Units total) by mouth daily 05/31/19 18 Active cyanocobalamin (Vitamin B-12) 1,000 mcg tablet Take 1 tablet (1,000 mcg total) by mouth daily 05/31/19 18 Active cyclobenzaprine (FLEXERIL) 5 mg tablet TAKE 1-2 TABLETS (5-10 MG TOTAL) BY MOUTH NIGHTLY AT BEDTIME. 07/22/19 22 Active mupirocin (BACTROBAN) 2 % ointment APPLY TO AFFECTED AREA TWICE A DAY FOR 7 DAYS 09/19/19 22 Active gemfibroziL (LOPID) 600 mg tablet Take 1 tablet (600 mg total) by mouth 2 times daily 12/26/19 22 Active zolpidem (AMBIEN) 5 mg tablet Take 1 tablet (5 mg total) by mouth nightly as needed for sleep 01/19/20 22 Active multivitamin capsule Take 1 capsule by mouth daily Active ascorbic acid (vitamin C) 100 mg tablet Take 1 tablet (100 mg total) by mouth daily Active aspirin 325 mg enteric coated tabletIndications:De ep Vein Thrombosis Prevention Take 1 tablet (325 mg total) by mouth daily 42 tablet 10/29/19 23 Active ondansetron ODT (ZOFRAN-ODT) 4 mg disintegrating tabletIndications:na usea and vomiting Take 1 tablet (4 mg total) by mouth every 6 (six) hours as needed for nausea or vomiting 20 tablet 2 10/29/19 23 Active senna-docusate (PERICOLACE) 8.6-50 mgIndications:elizabeth wilson Take 2 tablets by mouth 2 (two) times a day 60 tablet 2 10/29/19 23 Active Additional Information Patient not taking.Reported on 12/09/2022 oxyCODONE-acetaminop hen (PERCOCET) 5-325 mg per tabletIndications:Pa in Take 1-2 tablets by mouth every 4 (four) hours as needed for pain 40 tablet 11/24/19 23 Active Active Problems Problem Noted Date Diagnosed Date Primary osteoarthritis of right knee 10/27/2022 Primary osteoarthritis of left knee 09/28/2019 Diabetic neuropathy 05/07/2019 Diabetic polyneuropathy asso ciated with type 2 diabetes mellitus 05/07/2019 Fatigue 09/18/2018 Insomnia 09/18/2018 Overview (08/25/2021): Last Assessment & Plan: Will trial zolpidem for relief of symptoms, 30 days provided, to call with an update in the next month. Last Assessment & Plan: Will trial zolpidem for relief of symptoms, 30 days provided, to call with an update in the next month. Last Assessment & Plan: Will trial zolpidem for relief of symptoms, 30 days provided, to call with an update in the next month. Diabetes mellitus type 2, uncontrolled, with com plications 11/28/2017 Overview (08/25/2021): Transitioned From: Diabetes mellitus type 2, controlled, with complications Last Assessment & Plan: Gabe remains controlled, at his previous hemoglobin A1c level. Provided contact information for dietary guidance, continue current medications, recheck in 3 months and consider bolstering therapy if indicated. Transitioned From: Diabetes mellitus type 2, controlled, with complications Last Assessment & Plan: Gabe remains controlled, at his previous hemoglobin A1c level. Provided contact information for dietary guidance, continue current medications, recheck in 3 months and consider bolstering therapy if indicated. Decreased libido 12/01/2016 Stage 3a chronic kidney disease 06/25/2013 Overview (08/25/2021): Last Assessment & Plan: Stable renal function on most recent labs. Continue to monitor. Pure hypertriglyceridemia 06/18/2013 Overview (08/25/2021): Last Assessment & Plan: Well-controlled on most recent lipid panel, on current dosing of fenofibrate, omega-3 capsules. Patient without statin at this time, and review of previous charts does not reveal any previous exposure. If he is willing, will start low-dose statin for cardioprotection, particularly since he is diabetic. Osteoarthrosis involving lower leg 02/08/2013 Overview (08/25/2021): 2015 [facility] Updt 2015 [facility] Updt Benign prostatic hyperplasia 11/15/2012 Overview (08/25/2021): Last Assessment & Plan: Stable on current dosing of finasteride. No treatment change. Mild episode of recurrent major depressive disor sandra 11/12/2011 Overview (08/25/2021): Last Assessment & Plan: Continues on bupropion daily with good effects. No treatment change. Social History Tobacco Use Types Packs/Day Years Used Date Smoking Tobacco: Never Passive Smoke Exposure: Never Smokeless Tobacco: Never Tobacco Cessation:Counseling Given: Not Answered Alcohol Use Standard Drinks/Week Comments Yes 0 (1 standard drink = 0.6 oz pur e alcohol) AUDIT-C Answer Date Recorded Q1: How often do you have a drink containing alc ohol? 2-4 times a month 10/15/2022 Q2: How many drinks containi ng alcohol do you have on a typical day when you are drinking? 1 or 2 10/15/2022 Q3: How often do you have si x or more drinks on one occasion? Never 10/15/2022 Personal Safety Answer Date Recorded Have you ever been in or are you currently in a harmful physical or emotional relationship or is someone making you feel afraid or unsafe? Denies 10/27/2022 Sex and Gender Information Value Date Recorded Sex Assigned at Not on file Legal Sex Male 2:57 AM PUBLIC INFORMATION SPECIALIST Gender Identity Not on file Sexual Orientation Not on file Last Filed Vital Signs Vital Sign Reading Time Taken Comments Blood Pressure 158/79 12/09/2022 8:24 AM CDT Pulse 64 12/09/2022 8:24 AM CDT Temperature 36.7 C (98.1 F) 10/28/2022 6:32 AM CDT Respiratory Rate 16 10/28/2022 6:32 AM CDT Oxygen Saturation 100% 10/28/2022 6:32 AM CDT Inhaled Oxygen Concentration - - Weight 90.7 kg (200 lb) 12/09/2022 8:24 AM CDT Height 188 cm (6' 2 ) 12/09/2022 8:24 AM CDT Body Mass Index 25.68 12/09/2022 8:24 AM CDT Plan of Treatment Not on file Medical Devices Implanted Type Area Filter Press Supervisor Device Identifier Shelf Expiration Date Model / Serial / Lot [employer] Component Femoral Knee Porous Posterior Stabilized Left Attune Size 8 [employer] [id number] - Sna - [id number] Implanted:Qty: 1 on 10/27/2022 by Manuel Chu MD at [facility] Left: Knee [employer] [id number] 08/18/2030 [id number] / NA / [id number] [employer] Attune Fb Tib Base Sz 10 Por [id number] - [id number] Implanted:Qty: 1 on 10/27/2022 by Manuel Chu MD at [facility] Left: Knee [employer] [id number] 06/18/2032 [id number] / / [id number] [employer] Attune 7mm Posterior Stabilize Fix Bearing Knee 8 Insert Tibial [id number] - [id number] Implanted:Qty: 1 on 10/27/2022 by Manuel Chu MD at [facility] Left: Knee [employer] [id number] 02/17/2027 [id number] / / [id number] Procedures Procedure Name Priority Date/Time Associated Diagnosis Comments EGFR Routine 10/28/2022 3:49 AM CDT from Last 3 Months or Most Recently Relevant to Health Maintenance Results * eGFR (10/28/2022 3:49 AM CDT) eGFR 58 mL/min/1. 73 m2 [facility] ([place] Comment: Interpretive Data Reference Interval Normal >/= 90 mL/min/1.73m2 Mildly decreased* 60 - 89 mL/min/1.73m2 Mildly to moderately decreased 45 - 59 mL/min/1.73m2 Moderately to severely decreased 30 - 44 mL/min/1.73m2 Severely decreased 15 - 29 mL/min/1.73m2 Kidney Failure < 15 mL/min/1.73m2 *Relative to young adult level Estimated glomerular filtration rate is determined by the 2020 CKD-EPI equation recommended by the National Kidney Foundation (A Unifying Approach to GFR Estimation: Recommendations of the NKF-ASK Task Force on Reassessing the Inclusion of Race in Diagnosing Kidney Disease, JASN 2020). The CKD-EPI equation should not be used for patients with unstable renal function and has not been validated in children and those over 70. Current interpretive data was last reviewed 2021. Blood 10/28/2022 3:49 AM CDT 10/28/2022 4:22 AM CDT Aan JARVIS LAB BLOOD ORDERABLES Final Result [facility] ([place]) [facility] Department [place] [address] from Last 3 Months or Most Recently Relevant to Health Maintenance Insurance T MEDICARE AET MEDICARE Advance Directives For more information, please contact: [phone] * Full Code (Latest Code Status on File) Date Activated Date Inactivated Comments 10/27/2022 12:08 PM 10/28/2022 3:37 PM Care Teams Trading Specialist Relationship Specialty Start Date End Date Miscellaneous, Not In File PCP - General 10/14/22 Manuel Chu MD [address] [facility] [address] [place] [address] [place] [id number] Surgeon Orthopedic Surgery 10/28/22
--- OUTSIDE RECORDS SUMMARY | 2024-06-06 01:05 | XMS_ITS | Clinical Summary ---
Author Organization [facility] [place] [address] Care Team Providers Care Sandwich Counter Attendant Name Role Phone Jose Zazueta MD Unavailable Lucas Rivers MD Primary Care Provider [phone] Allergies Active Allergy Reactions Criticality Noted Date Comments Metformin GI Upset,Headache Low 08/18/2019 Other reaction(s): GI Discomfort Medications vitamin B-12 1000 MCG tablet Take 1 tablet (1,000 mcg total) by mouth daily. 018 Active vitamin D3, cholecalciferol, 1000 UNIT Tab tablet Take 1 tablet (1,000 Units total) by mouth daily. 018 Active magnesium oxide 250 MG tablet Take 2 tablets (500 mg total) by mouth daily. 018 Active Multiple Vitamins-Minerals (MULTIVITAMIN ADULT, MINERALS, OR) Take 1 capsule by mouth daily. Active Ascorbic Acid 100 MG Tab Take 100 mg by mouth daily. Active gabapentin (NEURONTIN) 600 MG tabletIndications:Diabe tic polyneuropathy associated with type 2 diabetes mellitus ([facility] HHS/HCC) take 1 tablet by mouth three times a day 270 tablet 1 024 Active Continuous Glucose Medical Insurance Biller (FREESTYLE LAMIN 3 READER) DeviceIndications:Diabe garcía mellitus (CMS/HCC HHS/HCC) Use to monitor blood sugars 1 each 024 Active glipiZIDE (GLUCOTROL) 10 MG tabletIndications:Type 2 diabetes mellitus with unspecified complications ([facility]) take 1 tablet by mouth twice a day 180 tablet 1 024 Active diclofenac EC (VOLTAREN) 75 MG tabletIndications:Bilat eral hip pain take 1 tablet by mouth twice a day 60 tablet 1 024 Active ferrous sulfate, 65 mg elemental, 325 (65 FE) MG tabletIndications:Iron deficiency anemia Take 1 tablet (325 mg total) by mouth daily with breakfast. 90 tablet 1 024 Active cyclobenzaprine (FLEXERIL) 5 MG tabletIndications:Muscl e spasm TAKE 1-2 TABLETS BY MOUTH AT BEDTIME NEEDED 60 tablet 2 024 Active Continuous Glucose Sensor (FREESTYLE LAMIN 3 SENSOR) MiscIndications:Diabete s mellitus ([facility]) APPLY TO SKIN EVERY 14 DAYS TO MONITOR BLOOD SUGARS 6 each 1 024 Active zolpidem (AMBIEN) 5 MG tabletIndications:Insom carlos enirque, unspecified type TAKE 1 TABLET BY MOUTH EVERY DAY AT BEDTIME NEEDED FOR SLEEP 30 tablet 024 Active gemfibrozil (LOPID) 600 MG tabletIndications:Pure hypertriglyceridemia TAKE 1 TABLET BY MOUTH TWICE A DAY BEFORE MEALS 180 tablet 025 Active traZODone (DESYREL) 50 MG tabletIndications:Insom carlos enrique, unspecified type TAKE 1 TABLET (50 MG TOTAL) BY MOUTH NIGHTLY AT BEDTIME 90 tablet 1 025 Active amoxicillin (AMOXIL) 500 MG capsule Take 1 capsule (500 mg total) by mouth as needed (DENTAL USE). 024 Active FARXIGA 10 MG tabletIndications:Type 2 diabetes mellitus with unspecified complications ([facility]) TAKE 1 TABLET BY MOUTH EVERY DAY IN THE MORNING 30 tablet 2 025 Active fluticasone propionate (FLONASE) 50 MCG/ACT nasal sprayIndications:Acute non-recurrent frontal sinusitis USE 2 SPRAYS IN EACH NOSTRIL TWICE A DAY FOR 3 DAYS, THEN 2 SPRAYS EACH NOSTRIL ONCE DAILY 48 mL 1 025 Active finasteride (PROSCAR) 5 MG tabletIndications:Benig n prostatic hyperplasia TAKE 1 TABLET BY MOUTH EVERY DAY 90 tablet 025 Active pramipexole (MIRAPEX) 0.125 MG tabletIndications:RLS (restless legs syndrome) TAKE 2 TABLETS AT BEDTIME. MAY INCREASE TO 4 TABLETS IF NEEDED 360 tablet 025 Active buPROPion XL (WELLBUTRIN XL) 150 MG 24 hr tabletIndications:Irrit ability,Mild episode of recurrent major depressive disorder TAKE 1 TABLET BY MOUTH EVERY DAY 90 tablet 025 Active fenofibrate (TRICOR) 145 MG tabletIndications:Dysli pidemia TAKE 1 TABLET BY MOUTH EVERY DAY 90 tablet 025 Active predniSONE (DELTASONE) 20 MG tabletIndications:Olecr anon bursitis of right elbow Take two tablets once a day for five days 10 tablet 025 Active pramipexole (MIRAPEX) 0.125 MG tabletIndications:RLS (restless legs syndrome) TAKE 2 TABLETS AT BEDTIME. MAY INCREASE TO 4 TABLETS IF NEEDED 360 tablet 024 2024 Discontinued finasteride (PROSCAR) 5 MG tabletIndications:Benig n prostatic hyperplasia take 1 tablet by mouth every day 90 tablet 024 2024 Discontinued buPROPion XL (WELLBUTRIN XL) 150 MG 24 hr tabletIndications:Irrit ability,Mild episode of recurrent major depressive disorder take 1 tablet by mouth every day 90 tablet 1 024 2024 Discontinued fenofibrate (TRICOR) 145 MG tabletIndications:Dysli pidemia TAKE 1 TABLET BY MOUTH EVERY DAY 90 tablet 024 2024 Discontinued Active Problems Problem Noted Date Diagnosed Date Olecranon bursitis of right elbow 05/31/2024 Sciatica, unspecified side 03/12/2024 Radiculopathy, lumbosacral region 03/12/2024 Pain, unspecified 03/12/2024 Generalized abdominal pain 03/12/2024 Hypoglycemia, unspecified 03/12/2024 Iron deficiency anemia 01/24/2024 Stenosis, spinal, lumbar 12/05/2023 Low back pain 07/05/2023 Right shoulder pain 07/05/2023 Fusion of spine of cervical region 04/25/2023 Unsteady gait 04/25/2023 Left knee pain 11/01/2022 H/O total knee replacement, left 11/01/2022 Borderline diabetes 09/09/2022 Enlarged prostate 09/09/2022 High blood cholesterol 09/09/2022 Spondylolisthesis 09/09/2022 Primary osteoarthritis of left knee 09/28/2019 Diabetic polyneuropathy asso ciated with type 2 diabetes mellitus ([facility]) 05/07/2019 Diabetic neuropathy ([facility]) 05/07/2019 BMI 25.0-25.9,adult 09/18/2018 Fatigue, unspecified type 09/18/2018 Insomnia 09/18/2018 Overview (02/27/2020): Last Assessment & Plan: Will trial zolpidem for relief of symptoms, 30 days provided, to call with an update in the next month. Assessment & Plan (09/21/2018 3:13 PM CDT): Will trial zolpidem for relief of symptoms, 30 days provided, to call with an update in the next month. Type 2 diabetes mellitus wit hout complication, with long-term current use of insulin ([facility]) 11/28/2017 Overview (02/20/2018): Transitioned From: Diabetes mellitus type 2, controlled, with complications Assessment & Plan (09/21/2018 3:14 PM CDT): Gabe remains controlled, at his previous hemoglobin A1c level. Provided contact information for dietary guidance, continue current medications, recheck in 3 months and consider bolstering therapy if indicated. Decreased libido 12/01/2016 Encounter for general adult medical examination without abnormal findings 07/21/2015 Overview (09/09/2022): Transitioned From: Therapeutic drug monitoring Assessment & Plan (09/21/2018 3:13 PM CDT): Lab work reviewed, repeat in 6 months. Obtain urine microalbumin today, as well as TSH for fatigue. Stage 3a chronic kidney disease 06/25/2013 Assessment & Plan (09/21/2018 3:05 PM CDT): Stable renal function on most recent labs. Continue to monitor. Pure hypertriglyceridemia 06/18/2013 Assessment & Plan (09/21/2018 3:12 PM CDT): Well-controlled on most recent lipid panel, on current dosing of fenofibrate, omega-3 capsules. Patient without statin at this time, and review of previous charts does not reveal any previous exposure. If he is willing, will start low-dose statin for cardioprotection, particularly since he is diabetic. Osteoarthrosis involving lower leg 02/08/2013 Overview (07/02/2020): 2015 IMO Updt Benign prostatic hyperplasia 11/15/2012 Assessment & Plan (09/21/2018 3:05 PM CDT): Stable on current dosing of finasteride. No treatment change. Mild episode of recurrent major depressive disor sandra 11/12/2011 Assessment & Plan (09/21/2018 3:12 PM CDT): Continues on bupropion daily with good effects. No treatment change. Resolved Problems Problem Noted Date Diagnosed Date Resolved Date Acute pain of left shoulder 10/17/2020 01/13/2021 Flushing 11/15/2018 01/13/2021 Vasovagal syncope 07/25/2017 01/13/2021 Assessment & Plan (09/21/2018 3:04 PM CDT): Apparently resolved at this time, no subsequent issues for the past year or so. Continue to monitor. 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 Abnormal EKG 02/20/2018 Encounters Date Type Department Care Team Description 06/05/2024 7:44 AM CDT Hospital Encounter [facility] [address] [place] [address] Moshe Moy, PT Lucas Rivers MD Spinal Stenosis (/) 06/05/2024 Travel 05/31/2024 1:00 PM CDT Office Visit [facility] [address] [place] [phone] Lucas Rivers MD Elbow Pain (Right swollen elboe sx started 3-4 months ago ) 05/31/2024 6:58 AM CDT - 05/31/2024 11:59 PM CDT Hospital Encounter [facility] [address] [place] [address] Moshe Moy, PT Lucas Rivers MD Spinal Stenosis Discharge Disposition: Home or Self Care (Routine Discharge) 05/31/2024 Travel 05/25/2024 9:04 AM HOG PUSHER - 05/25/2024 11:59 PM HOG PUSHER Hospital Encounter [facility] [address] [place] [address] Moshe Moy, PT Spinal Stenosis Discharge Disposition: Home or Self Care (Routine Discharge) 05/25/2024 Travel 05/22/2024 8:30 AM HOG PUSHER - 05/22/2024 11:59 PM HOG PUSHER Hospital Encounter [facility] [address] [place] [address] Moshe Moy, PT Spinal Stenosis Discharge Disposition: Home or Self Care (Routine Discharge) 05/22/2024 Travel 05/11/2024 7:45 AM HOG PUSHER - 05/11/2024 11:59 PM HOG PUSHER Hospital Encounter [facility] [address] [place] [address] Moshe Moy, PT Albert Mcmahon MD Spinal Stenosis ; Gait Disturbance Discharge Disposition: Home or Self Care (Routine Discharge) 05/11/2024 Travel 05/09/2024 Scan [employer] INFO SRVCS Scanned, [facility] 05/08/2024 1:45 PM HOG PUSHER - 05/08/2024 11:59 PM HOG PUSHER Hospital Encounter [facility] [address] [place] [address] Moshe Moy, PT Spinal Stenosis Discharge Disposition: Home or Self Care (Routine Discharge) 05/08/2024 Travel 04/28/2024 MyChart Message Enc [facility] Medical [facility] [address], [address] [place] [address] Cj Verdugo MD Appointment on May 21, 2024 04/19/2024 6:57 AM HOG PUSHER - 04/19/2024 11:59 PM HOG PUSHER Hospital Encounter [facility] [address] [place] [address] Moshe Moy, PT Spinal Stenosis Discharge Disposition: Home or Self Care (Routine Discharge) 04/19/2024 Travel 04/17/2024 7:00 AM HOG PUSHER - 04/17/2024 11:59 PM HOG PUSHER Hospital Encounter [facility] [address] [place] [address] Moshe Moy, PT Spinal Stenosis (/) Discharge Disposition: Home or Self Care (Routine Discharge) 04/17/2024 Travel 04/10/2024 6:54 AM HOG PUSHER - 04/10/2024 11:59 PM HOG PUSHER Hospital Encounter [facility] [address] [place] [address] Moshe Moy, PT Leg Pain Discharge Disposition: Home or Self Care (Routine Discharge) 04/10/2024 Travel 04/06/2024 9:40 AM HOG PUSHER Office Visit [facility] Medical [facility] [address] [place] [phone] Ganesh Morgan PA URI (Pt c/o cough,runny nose and head congestion X 2 weeks) 04/06/2024 Travel 04/02/2024 7:43 AM HOG PUSHER - 04/02/2024 11:59 PM HOG PUSHER Hospital Encounter [facility] [id number] [place] [address] Moshe Moy, PT Spinal Stenosis Discharge Disposition: Home or Self Care (Routine Discharge) 04/02/2024 Travel 03/22/2024 10:59 AM HOG PUSHER - 03/22/2024 11:59 PM HOG PUSHER Hospital Encounter [facility] [address] [place], [place] [phone] Moshe Moy, PT Lamar Vela MD Spinal Stenosis Discharge Disposition: Home or Self Care (Routine Discharge) 03/22/2024 Travel 03/19/2024 Telephone [facility] [address] [place] [address] Denise Hodge, PT Referral 03/12/2024 7:20 AM HOG PUSHER Office Visit [facility] [address] [place] [phone] Lucas Rivers MD Sleep Problem (Pt states he fall asleep for about hour and then up and can't go back to sleep ); Swelling (Bilateral feet swelling ) 03/12/2024 Travel from Last 3 Months Immunizations Name Administration Dates Next Due Fluzone High Dose (IIV, triv alent, 0.5mL) 11/23/2023 Fluzone High Dose - >Age 65 (Prefilled Syringe) 01/18/2022,01/13/2021,12/14/2019,2018,11/28/2017,01/27/2016,02/05/2015 Influenza (Generic) 02/06/2015,02/14/2013,2011 Influenza Adult (Generic) 12/20/2022,12/01/2016 PFIZER COVID-19 (COLE CAP), MRNA, LNP-S, PF, 30 MCG/0.3 ML NURYS-SUCROSE, IM 10/13/2021 PFIZER COVID-19 (ORIGINAL FORMULATION, PURPLE CAP) mRNA, LNP-S, PF, 30 MCG/0.3 ML DOSE 01/16/2021,06/06/2020,05/16/2020 PFIZER COVID-19 BIVALENT (12 +) mRNA, LNP-S, PF, 30 MCG/0.3 ML DOSE 02/24/2022 Pneumococcal (Pneumovax 23) 12/28/2013 Pneumococcal (Prevnar 13) 12/01/2016 Shingrix 07/14/2020,02/25/2020 Tdap (Boostrix) 09/18/2021 Tdap (Generic) 11/12/2011 Family History Medical History Relation Comments Malignant neoplasm Mother No family history of heart disease. Other Malignant neoplasm Sister Relation Status Comments Father (Age 85) Maternal Grandfather (Age 52) Maternal Grandmother (Age 41) Mother (Age 72) Other Paternal Grandfather (Age 99) Paternal Grandmother (Age 107) Sister (Age 41) Social History Tobacco Use Types Packs/Day Years Used Date Smoking Tobacco: Never Smokeless Tobacco: Never Tobacco Cessation:Counseling Given: No Alcohol Use Standard Drinks/Week Comments Not Currently 0 (1 standard drink = 0.6 oz pur e alcohol) social- beer PHQ-2 Answer Date Recorded Patient Health Questionnaire-2 Score 0 04/06/2024 Sex and Gender Information Value Date Recorded Sex Assigned at Male 05/07/2024 1:57 PM HOG PUSHER Legal Sex Male 7:06 PM CDT Gender Identity Not on file Sexual Orientation Not on file Occupation Industry Job Start 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 Job End 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 Not on file Not on file Not on file Last Filed Vital Signs Vital Sign Reading Time Taken Comments Blood Pressure 132/79 05/31/2024 12:58 PM CDT Pulse 60 05/31/2024 12:58 PM CDT Temperature 36.1 C (97 F) 05/31/2024 12:58 PM CDT Respiratory Rate 16 05/31/2024 12:58 PM CDT Oxygen Saturation 99% 05/31/2024 12:58 PM CDT Inhaled Oxygen Concentration - - Weight 96.6 kg (213 lb) 05/31/2024 12:58 PM CDT Height 190.5 cm (6' 3 ) 05/31/2024 12:58 PM CDT Body Mass Index 26.62 05/31/2024 12:58 PM CDT Plan of Treatment Upcoming Encounters Date Type Department Care Team (Late st Contact Info) Description 06/08/2024 7:00 AM CDT Appointment [facility] [address] [place] [address] [place] [address] [place] [address] [place] [address] [place] [address] 06/12/2024 11:00 AM CDT Appointment [facility] [address] [place] [address] [place] [address] [place] [address] Albert Mcmahon MD [address] [address] 06/19/2024 10:15 AM CDT Appointment [facility] [address] [place] [address] [place] [address] [place] [address] Albert Mcmahon MD [address] [address] 06/21/2024 9:30 AM CDT Appointment [facility] [address] [place] [address] [place] [address] [place] [address] Albert Mcmahon MD [address] [address] 06/25/2024 9:45 AM CDT Appointment [facility] [address] [place] [address] [place] [address] [place] [address] Albert Mcmahon MD [address] [address] 06/28/2024 9:45 AM CDT Appointment [facility] [address] [place] [address] [place] [address] [place] [address] Albert Mcmahon MD [address] [address] 07/02/2024 9:30 AM CDT Appointment [facility] [address] [place] [address] [place] [address] [place] [address] Albert Mcmahon MD [address] [address] 07/05/2024 11:15 AM CDT Appointment [facility] [address] [place] [address] [place] [address] [place] [phone] Albert Mcmahon MD [address] [address] 07/09/2024 11:15 AM CDT Appointment [facility] [address] [place] [address] [place] [address] [place], [place] [phone] Albert Mcmahon MD [address] [phone] Health Maintenance Due Date Last Done Comments Kidney Health Evaluation 1950 Annual Medicare Wellness Visit 2013 RSV Immunization or 60+ Years (1 - 1-dose 75+ series) 2023 Hemoglobin A1C 07/22/2024 01/23/2024, 08/19, 08/24/2023, Additional history exists Lipid Panel 01/22/2025 01/23/2024, 08/19, 12/14/2021, Additional history exists Diabetes: Retinopathy Eye Exam 05/11/2025 05/11/2023, 02/01/2020, 01/22/2019, Additional history exists DTaP, Tdap and Td Vaccines (3 - Td or Tdap) 09/19/2031 09/18/2021, 11/12/2011 Pneumococcal Vaccine: 65+ Years Completed 12/01/2016, 12/28/2013 Colorectal Cancer Screening Colonoscopy (10 Years) Discontinued 03/30/2017, 03/30/2017 Hepatitis C Completed 05/07/2019 Zoster Vaccines Completed 07/14/2020, 02/25/2020 COVID-19 Vaccine Completed 11/23/2023, 04/2022, 02/24/2022, Additional history exists Influenza Adult Completed 11/23/2023, 1004/2022, 01/18/2022, Additional history exists PHQ-2 (Physician [place]) Completed 04/06/2024 Meningococcal B Vaccine Aged Out No l onger eligible based on patient's age to complete this topic Meningococcal Vaccine Aged Out No andriy hannah eligible based on patient's age to complete this topic RSV Immunizations Under 20 Months Aged Out No longer eligible based on patient's age to complete this topic Procedures Procedure Name Priority Date/Time Associated Diagnosis Comments LIPID PANEL Routine 01/23/2024 7:46 AM HOG PUSHER Stage 3a chronic kidney disease ([facility]) Type 2 diabetes mellitus without complication, with long-term current use of insulin ([facility]) Pure hypertriglyceridemia HEMOGLOBIN, GLYCOSYLATED Routine 01/23/2024 7:46 AM HOG PUSHER Type 2 diabetes mellitus without complication, with long-term current use of insulin ([facility]) DIABETIC RETINOPATHY EXAM (NEGATIVE)(SCAN ORDER) Routine 05/11/2023 HEPATITIS C ANTIBODY Routine 05/07/2019 10:07 AM HOG PUSHER Encounter for hepatitis C screening test for low risk patient COLONOSCOPY Routine 03/30/2017 12:00 AM HOG PUSHER from Last 3 Months or Most Recently Relevant to Health Maintenance Results * (ABNORMAL) HEMOGLOBIN, GLYCOSYLATED (01/23/2024 7:46 AM HOG PUSHER) HGB A1C 7.9(H) <5.7 % 01/23/2024 8:[address] [facility] Comment: INCREASED RISK OF DIABETES <5.7% NON-DIABETES 5.7-6.4% INCREASED RISK FOR FUTURE DIABETES > OR = 6.5 CONSISTENT WITH DIABETES STANDARDS OF MEDICAL CARE IN DIABETES-2010 DIABETES CARE, 33(SUPP 1): S1-S61,2009 ESTIMATED AVG GLUCOSE 180 mg/dL 01/23/2024 8:[address] [facility] 01/23/2024 7:46 AM HOG PUSHER Lucas Rivers MD LABORATORY Final Resul t [facility] [address] [place] [address], * (ABNORMAL) LIPID PANEL (01/23/2024 7:46 AM HOG PUSHER) CHOLESTEROL 143 <200.0 MG/DL 01/23/2024 9:[address] [facility] TRIGLYCERIDES 132 <150 MG/DL 01/23/2024 9:[address] [facility] HDL 33(L) >40.0 MG/DL 01/23/2024 9:[address] [facility] LDL (CALCULATED) 84 <100 MG/DL 01/23/20 9:[address] [facility] NON HDL CHOLESTEROL 110 <130 MG/DL 01/22 9:[address] [facility] CHOL/HDL RATIO 4.3 0.0 - 4.5 01/23/2024 9:[address] [facility] VLDL CALCULATION 26 5 - 55 MG/DL 01/23/2024 9:[address] [facility] LIPID INTERPRETATION 01/23/2024 9:[address] [facility] Comment: NIH CONCENSUS REPORT RECOMMENDATIONS: ADULT CHILD LOW RISK: CHOLESTEROL <200 <170 TRIGLYCERIDE <150 --- HDL >=60 --- LDL <100 <110 BORDERLINE: CHOLESTEROL 200-239 170-199 TRIGLYCERIDE 150-199 --- HDL 40-59 --- LDL 100-159 110-129 HIGH RISK: CHOLESTEROL >=240 >=200 TRIGLYCERIDE >=200 --- HDL <40 --- LDL >=160 >=130 01/23/2024 7:46 AM HOG PUSHER Lucas Rivers MD LABORATORY Final Resul t Performing Organization Address [facility] Co de Phone Number [facility] [address] [place] [address], * DIABETIC RETINOPATHY EXAM (NEGATIVE) (05/11/2023) us [facility] Scanned SCANNING Final Resu lt Performing Organization Address [facility] de Phone Number [facility] * HEPATITIS C ANTIBODY (05/07/2019 10:07 AM HOG PUSHER) HEPATITIS C AB NON-REACT JOSE MANUEL NON-REACT JOSE MANUEL [facility] SIGNAL TO CUTOFF 0.01 <1.00 [facility] Comment: HCV antibody was non-reactive. There is no laboratory evidence of HCV infection. In most cases, no further action is required. However, if recent HCV exposure is suspected, a test for HCV RNA (test code 92901) is suggested. For additional information please refer to http://education.Hive guard unlimited/faq/PEL21p9 (This link is being provided for informational/ educational purposes only.) 05/07/2019 10:0 7 AM HOG PUSHER 05/08/2019 4:33 AM HOG PUSHER Narrative Resulting Agency Comment Performing Organization Information: Site ID: [id number] Name: [facility] Address: [address] [place] [phone] Director: Kris Byers D.O., MPH us Salo Kelly MD LABORATORY Final Res ult Performing Organization Address [facility] de Phone Number [facility] * Colonoscopy (03/30/2017 12:00 AM HOG PUSHER) 03/30/2017 03/30/2017 Narrative [facility] TO EPIC CONVERSION - 03/30/2017 12:00 AM HOG PUSHER Documented hx of procedure Procedure Note Estuardo Fitch MD - 01/22/2018 Documented hx of procedure Generic Orquidea Fitch MD GI PROCEDURE ORDERABLES Final Result [facility] TO EPIC CONVERSION from Last 3 Months or Most Recently Relevant to Health Maintenance Insurance [employer] Care Teams Sandwich Counter Attendant Relationship Specialty [place] [address] [place] [address] PCP - General FAMILY PRACTICE 05/04/21 Jose Zazueta MD [facility]. JEAN [address] [place] [id number] Robin Grain Inspector CARDIOVASCULAR DISEASE 05/10/17
--- OUTSIDE RECORDS SUMMARY | 2024-06-06 01:05 | XMS_ITS | Encounter Summary ---
Author Organization [facility] Address [address] [place] [address] Care Team Providers Care Mining Technician Name Role Phone Jose Zazueta MD Unavailable [phone] Lucas Rivers MD Primary Care Provider [phone] Reason for Visit * Reason Comments Spinal Stenosis * Physical Therapy (Routine) - Authorized Specialty Diagnoses / Procedures Referred By Contjose m t Referred To Contact PHYSICAL THERAPY / [facility] Physical Therapy Diagnoses re-eval, new order from Albert Mcmahon MD low back pain, left leg weakness Procedures TREATMENT Albert Mcmahon MD [address] [place] [address] Phone: tel: fax: [facility] [address] [place] [address] Phone: tel: fax: Referral ID Status Reason Start Date Expiration Date Visits Requested Visits Authorized Authorized Physical Therapy 05/11/2024 [id number] [phone] Encounter Details Date Type Department Care Team (Latest Contact Info) Description 06/05/2024 7:44 AM CDT Hospital Encounter [facility] [address] [place], [place] [id number] [place] [address] [place] [address] [place] [address] [place] [address] Spinal Stenosis (/) Social History Tobacco Use Types Packs/Day Years Used Date Smoking Tobacco: Never Smokeless Tobacco: Never Alcohol Use Standard Drinks/Week Comments Not Currently 0 (1 standard drink = 0.6 oz pur e alcohol) social- beer PHQ-2 Answer Date Recorded Patient Health Questionnaire-2 Score 0 04/06/2024 Sex and Gender Information Value Date Recorded Sex Assigned at Male 05/07/2024 1:57 PM MANAGEMENT SPECIALIST Legal Sex Male 7:06 PM CDT Gender Identity Not on file Sexual Orientation Not on file Occupation Industry Job Start Date Job End Date 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 Not on file Not on file Not on file documented as of this encounter Progress Notes * Moshe Moy, PT - 06/05/2024 7:45 AM CDT Physical Therapy Visit Note: Patient Name: Gabe Hernandez Diagnosis: Low back pain (primary encounter diagnosis) Stenosis, spinal, lumbar SUBJECTIVE Therapy Visit Start Time: 0745 Stop Time: 0830 Time Calculation (min): 45 min Treatment Day: 31 Therapy Plan of Care: 1-3 x week up to 8 weeks beginning 05/11/24 at visit 27 Current Therapy Orders: Eval Treat Diagnosis: Spinal Stenosis Referring Provider: Lucas Rivers MD, Albert Mcmahon MD as of 05/11/24 Subjective Note: No new c/o today. Reported Falls since last visit: 0 Medications changes since last visit : steroid OBJECTIVE Treatment provided today: Neuromuscular Re-education - 62091 Number of Minutes - 63874: 15 Balance Standing: corner of room- EC/EO, Head turns, vary stance position x 10 x 10 HEP Intervention: side stepping in place with pivot and reach x 15 each (face wall post on R/L) Intervention: toe taps blue bench step x 15 each NO UE Intervention: lunge on blue bench - weight shift fwd/bkwd x 15 each Intervention: Alt mini lunge fwd with paloff press hold x 10 each Intervention: vboard lateral balance x 3' Therapeutic Exercise - 41760 Number of Minutes - 91195: 30 Cardio Equipment: Octane 5:00 Exercise: TRX weight shift in sumo stance x 10 each Exercise: modified SLDL cable column 30# Exercise: back v wall - cane rotation PNF x 10 each Exercise: plank v wall on hands - rotate trunk R/L x 10 Exercise: plank v wall - UE reach across body R/L with trunk rotation x 10 each Exercise: hips v ball v wall rotate R/L holding cane x 10 each Patient/Family Education: Home exercise program, Body mechanics ASSESSMENT Assessment Note: Tolerated exercises well today with limited weight shift and strength L LE. Continue on Functional Deficit of: loss of balance, unsteadiness PLAN Plan Next Visit Plan: Continue per POC. Total Time Total Time in Minutes: 45 Timed Code Treatment Minutes : 45 documented in this encounter Plan of Treatment Upcoming Encounters Date Type Department Care Team (Late st Contact Info) Description 06/08/2024 7:00 AM CDT Appointment [facility] [address] [place] [address] [place] [address] [place] [address] [place] [address] [place] [address] 06/12/2024 11:00 AM CDT Appointment [facility] [address] [place] [address] [place] [address] [place] [address] Albert Mcmahon MD [address] [address] 06/19/2024 10:15 AM CDT Appointment [facility] [address] [place] [address] [place] [address] [place] [address] Albert Mcmahon MD [address] [address] 06/21/2024 9:30 AM CDT Appointment [facility] [address] [place] [address] [place] [address] [place] [address] Albert Mcmahon MD [address] [address] 06/25/2024 9:45 AM CDT Appointment [facility] [address] [place] [address] [place] [address] [place] [address] Albert Mcmahon MD [address] [address] 06/28/2024 9:45 AM CDT Appointment [facility] [address] [place] [address] [place] [address] [place] [address] Albert Mcmahon MD [address] [address] 07/02/2024 9:30 AM CDT Appointment [facility] [address] [place] [address] [place] [address] [place] [address] Albert Mcmahon MD [address] [address] 07/05/2024 11:15 AM CDT Appointment [facility] [address] [place] [address] [place] [address] [place] [address] Albert Mcmahon MD [address] [address] 07/09/2024 11:15 AM CDT Appointment [facility] [address] [place] [address] [place] [address] [place] [address] Albert Mcmahon MD [address] [address] documented as of this encounter Visit Diagnoses Diagnosis Low back pain- Primary Lumbago Stenosis, spinal, lumbar Spinal stenosis, lumbar region, without neurogenic claudication documented in this encounter Additional Health Concerns Assessment Noted Time PHQ-9 Depression Total Score: 2 04/06/19 25 9:40 AM MANAGEMENT SPECIALIST documented as of this encounter Care Teams Mining Technician Relationship Specialty [place] [address] [place] [address] PCP - General FAMILY PRACTICE 05/04/21 Jose Zazueta MD Three [facility]. [address] [address] [place] [employer] Head CARDIOVASCULAR DISEASE 05/10/17 documented as of this encounter
--- OUTSIDE RECORDS SUMMARY | 2024-06-06 01:05 | XMS_ITS | Encounter Summary ---
Author Organization [facility] Address [address] [place] [address] Care Team Providers Care Judo Instructor Name Role Phone Salo Kelly MD Primary Care Provider [phone] Jose Zazueta MD Unavailable [phone] Lucas Rivers MD Primary Care Provider [phone] Encounter Details Date Type Department Care Team (Late st Contact Info) Description 05/31/2017 Abstract [facility] at [address] [address] Pretty Ocampo MA Social History Tobacco Use Types Packs/Day Years Used Date Smoking Tobacco: Never Smokeless Tobacco: Never Alcohol Use Standard Drinks/Week Comments Yes 0 (1 standard drink = 0.6 oz pur e alcohol) social- beer Sex and Gender Information Value Date Recorded Sex Assigned at Male 05/07/2024 1:57 PM PHYSICAL INTEGRATION PRACTITIONER Legal Sex Male 7:06 PM CDT Gender Identity Not on file Sexual Orientation Not on file documented as of this encounter Progress Notes * JEANNIE Chauhan - 06/01/2017 3:37 PM CDT Labs from 1 year ago reviewed. documented in this encounter Plan of Treatment Upcoming Encounters Date Type Department Care Team (Late st Contact Info) Description 06/08/2024 7:00 AM CDT Appointment [facility] [address] [place] [address] [place] [address] [place] [address] [place] [address] [place] [address] 06/12/2024 11:00 AM CDT Appointment [facility] [address] [place] [address] [place] [address] [place] [address] Albert Mcmahon MD [address] [address] 06/19/2024 10:15 AM CDT Appointment [facility] [address] [place] [address] [place] [address] [place] [address] Albert Mcmahon MD [address] [address] 06/21/2024 9:30 AM CDT Appointment [facility] [address] [place] [address] [place] [address] [place] [address] Albert Mcmahon MD [address] [address] 06/25/2024 9:45 AM CDT Appointment [facility] [address] [place] [address] [place] [address] [place] [address] Albert Mcmahon MD [address] [address] 06/28/2024 9:45 AM CDT Appointment [facility] [address] [place] [address] [place] [address] [place] [address] Albert Mcmahon MD [address] [address] 07/02/2024 9:30 AM CDT Appointment [facility] [address] [place] [address] [place] [address] [place] [address] Albert Mcmahon MD [address] [address] 07/05/2024 11:15 AM CDT Appointment [facility] [address] [place] [address] [place] [address] [facility] [place], [place] [id number] Albert Mcmahon MD [address] [address] 07/09/2024 11:15 AM CDT Appointment [facility] [address] [facility] [place] [place] [id number] [place] [address] [place], [place] [id number] Albert Mcmahon MD [address] [id number] documented as of this encounter Procedures Procedure Name Priority Date/Time Associated Diagnosis Comments CBC (OUTSIDE LAB) Routine 05/02/2017 COMPREHENSIVE METABOLIC PANEL Routine 05/02/2017 HEMOGLOBIN, GLYCOSYLATED Routine 05/02/2017 COMPREHENSIVE METABOLIC PANEL Routine 07/16/2015 LIPID PANEL Routine 07/16/2015 HEMOGLOBIN, GLYCOSYLATED Routine 07/16/2015 THYROID STIM HORMONE TSH Routine 07/16/2015 documented in this encounter Results * HEMOGLOBIN, GLYCOSYLATED (05/02/2017) HGB A1C 6.9 05/02/2017 us Doc [facility] LABORATORY Final Result * (ABNORMAL) COMPREHENSIVE METABOLIC PANEL (05/02/2017) Pathologist [facility] SODIUM S/P/B 133 POTASSIUM S/P/B 4.2 CO2 25 CHLORIDE S/P/B 101 GLUCOSE 180 mg/dL CALCIUM S/P/B 9.9 BUN 22 CREATININE S/P/B 1.42(A) 0.7 - 1.3 EGFR AFR. AMER. 58 EGFR NON-AFR. AMER. 50 <=90 ALKALINE PHOSPHATASE S/P/B 53 ALT 21 AST 16 BILIRUBIN TOTAL S/P/B 0.7 ALBUMIN S/P/B 4.5 3.5 - 5.0 TOTAL PROTEIN S/P/B 6.5 GLOBULIN 2.0 05/02/2017 us Doc [facility]ORAT[facility] Final Result * CBC (OUTSIDE LAB) (05/02/2017) WBC 6.2 HGB 15.3 HCT 44.9 PLT 197 05/02/2017 us Doc [facility] Abstract LAB-OUTSIDE/ABSTRACTED Final Result * HEMOGLOBIN, GLYCOSYLATED (07/16/2015) HGB A1C 7.4 07/16/2015 us Doc [facility] LABORATORY Edited Resul t - Final * (ABNORMAL) COMPREHENSIVE METABOLIC PANEL (07/16/2015) SODIUM S/P/B 139 POTASSIUM S/P/B 4.7 CO2 27 CHLORIDE S/P/B 106 GLUCOSE 181 mg/dL CALCIUM S/P/B 9.3 BUN 20 CREATININE S/P/B 1.40(A) 0.7 - 1.3 EGFR NON-AFR. AMER. 54 <=90 ALKALINE PHOSPHATASE S/P/B 60 ALT 24 AST 19 BILIRUBIN TOTAL S/P/B 0.5 ALBUMIN S/P/B 4.3 3.5 - 5.0 TOTAL PROTEIN S/P/B 5.9 07/16/2015 us Doc [facility] LAB[facility]AT[facility] Final Result * THYROID STIM HORMONE, TSH (07/16/2015) TSH 0.53 07/16/2015 us Doc [facility] LABORAT[facility] Final Result * LIPID PANEL (07/16/2015) CHOLESTEROL 136 HDL 31 TRIGLYCERIDES 221 LDL (CALCULATED) 60.8 07/16/2015 us Doc [facility] Final Result documented in this encounter Visit Diagnoses Not on filedocumented in this encounter Additional Health Concerns Infection Onset Date Last Indicated Resolved Time COVID-19 Rule Out 11/28/2020 11/28/2020 11/29/2020 9:21 PM CDT documented as of this encounter Care Teams Judo Instructor Relationship Specialty Start Date End Date Salo Kelly MD PCP - General INTERNAL MEDICINE 05/10/17 05/03/21 [place] [address] [place] [address] PCP - General FAMILY PRACTICE 05/04/21 Jose Zazueta MD [facility]. [address] [address] [place] [employer] Machines Teacher CARDIOVASCULAR DISEASE 05/10/17 documented as of this encounter
--- OUTSIDE RECORDS SUMMARY | 2024-06-06 01:05 | XMS_ITS | Encounter Summary ---
Author Organization [facility] Address [facility] [place] [address] Care Team Providers Care Refractory Repairer Name Role Phone Jose Zazueta MD Unavailable [phone] Lucas Rivers MD Primary Care Provider [phone] Encounter Details Date Type Department Care Team (Latest Contact Info) Description 04/28/2024 CMOSIS nv Message Enc [facility] - [facility] [address] [facility], [address] [place] [address] Cj Verdugo MD 3 [place] [address] Appointment on May 21, 2024 Social History Tobacco Use Types Packs/Day Years Used Date Smoking Tobacco: Never Smokeless Tobacco: Never Alcohol Use Standard Drinks/Week Comments Not Currently 0 (1 standard drink = 0.6 oz pur e alcohol) social- beer PHQ-2 Answer Date Recorded Patient Health Questionnaire-2 Score 0 04/06/2024 Sex and Gender Information Value Date Recorded Sex Assigned at Male 05/07/2024 1:57 PM MINISTER Legal Sex Male 7:06 PM CDT Gender Identity Not on file Sexual Orientation Not on file 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 [address] [place] [address] [place] [address] [place] [address] [place] [address] [place] [address] 06/12/2024 11:[address] [facility] [address] [place] [address] [place] [address] [place] [address] Albert Mcmahon MD [address] [address] 06/19/2024 10:[address] [facility] [address] [place] [address] [place] [address] [place] [address] Albert Mcmahon MD [address] [address] 06/21/2024 9:[address] [facility] [address] [place] [address] [place] [address] [place] [address] Albert Mcmahon MD [address] [address] 06/25/2024 9:[address] [facility] [address] [place] [address] [place] [address] [place] [address] Albert Mcmahon MD [address] [address] 06/28/2024 9:[address] [facility] [address] [place] [address] [place] [address] [place] [address] Albert Mcmahon MD [address] [address] 07/02/2024 9:[address] [facility] [address] [place] [address] [place] [address] [place] [address] Albert Mcmahon MD [address] [address] 07/05/2024 11:[address] [facility] [address] [place] [address] [place] [address] [place] [address] Albert Mcmahon MD 3 [facility] [address] [place] [address] 07/09/2024 11:[address] [facility] [address] [place] [address] [place] [address] [place] [address] Albert Mcmahon MD 3 [facility] [address] [place] [address] documented as of this encounter Visit Diagnoses Not on filedocumented in this encounter Additional Health Concerns Assessment Noted Time PHQ-9 Depression Total Score: 2 04/06/19 25 9:40 AM MINISTER documented as of this encounter Care Teams Refractory Repairer Relationship Specialty [place] [address] [place] [address] PCP - General FAMILY PRACTICE 05/04/21 Jose Zazueta MD Three [facility]. [facility] [address] [place] [address] Robin [employer]ified Natural Gas Technician CARDIOVASCULAR DISEASE 05/10/17 documented as of this encounter
--- OUTSIDE RECORDS SUMMARY | 2024-06-06 01:05 | XMS_ITS | Encounter Summary ---
Author Organization [facility] Address [address] [place] [address] Care Team Providers Care Netting Inspector Name Role Phone Jose Zazueta MD Unavailable [phone] Nicole Rivers MD Primary Care Provider [phone] Reason for Visit * Reason Comments Elbow Pain Right swollen elboe sx started 3-4 months ago Encounter Details Date Type Department Care Team (Late st Contact Info) Description 05/31/2024 1:00 PM CDT Office Visit [facility] Family [facility] Internal Medicine [facility] [address] [place] [address] [place] [address] [place] [address] Elbow Pain (Right swollen elboe sx started 3-4 months ago ) Social History Tobacco Use Types Packs/Day Years Used Date Smoking Tobacco: Never Smokeless Tobacco: Never Tobacco Cessation:Counseling Given: No Alcohol Use Standard Drinks/Week Comments Not Currently 0 (1 standard drink = 0.6 oz pur e alcohol) social- beer PHQ-2 Answer Date Recorded Patient Health Questionnaire-2 Score 0 04/06/2024 Sex and Gender Information Value Date Recorded Sex Assigned at Male 05/07/2024 1:57 PM DIRECTOR NETWORK DEVELOPMENT Legal Sex Male 7:06 PM CDT Gender Identity Not on file Sexual Orientation Not on file Occupation Industry Job Start Date Job End Date suarez Not on file Not on file Not on file documented as of this encounter Last Filed Vital Signs Vital Sign Reading [...] Mass Index 26.62 05/31/2024 12:58 PM CDT documented in this encounter Patient Instructions * Patient Instructions* Nicole Rivers MD - 05/31/2024 1:00 PM CDT 1) Right olecranon bursitis: rest, fiber picker compression sleeve and wear daily will start prednisone for five days and discussed patient education and counseling documented in this encounter Progress Notes * Nicole Rivers MD - 05/31/2024 1:00 PM CDT Images from the original note were not included. Office Progress Note Reason for Visit: Elbow Pain (Right swollen elboe sx started 3-4 months ago ) History of Present Illness: HPI ROS: ROS Medications: Current Outpatient Medications: ??? amoxicillin (AMOXIL) 500 MG capsule, Take 1 capsule (500 mg total) by mouth as needed (DENTAL USE)., Disp: , Rfl: ??? Ascorbic Acid 100 MG Tab, Take 100 mg by mouth daily., Disp: , Rfl: ??? buPROPion XL (WELLBUTRIN XL) 150 MG 24 hr tablet, TAKE 1 TABLET BY MOUTH EVERY DAY, Disp: 90 tablet, Rfl: 0 ??? Continuous Glucose Foreign Exchange Services Manager (FREESTYLE LAMIN 3 READER) Device, Use to monitor blood sugars, Disp: 1 each, Rfl: 0 ??? Continuous Glucose Sensor (FREESTYLE LAMIN 3 SENSOR) Misc, APPLY TO SKIN EVERY 14 DAYS TO MONITOR BLOOD SUGARS, Disp: 6 each, Rfl: 1 ??? cyclobenzaprine (FLEXERIL) 5 MG tablet, TAKE 1-2 TABLETS BY MOUTH AT BEDTIME NEEDED, Disp: 60 tablet, Rfl: 2 ??? diclofenac EC (VOLTAREN) 75 MG tablet, take 1 tablet by mouth twice a day, Disp: 60 tablet, Rfl: 1 ??? FARXIGA 10 MG tablet, TAKE 1 TABLET BY MOUTH EVERY DAY IN THE MORNING, Disp: 30 tablet, Rfl: 2 ??? fenofibrate (TRICOR) 145 MG tablet, TAKE 1 TABLET BY MOUTH EVERY DAY, Disp: 90 tablet, Rfl: 0 ??? ferrous sulfate, 65 mg elemental, 325 (65 FE) MG tablet, Take 1 tablet (325 mg total) by mouth daily with breakfast., Disp: 90 tablet, Rfl: 1 ??? finasteride (PROSCAR) 5 MG tablet, TAKE 1 TABLET BY MOUTH EVERY DAY, Disp: 90 tablet, Rfl: 0 ??? fluticasone propionate (FLONASE) 50 MCG/ACT nasal spray, USE 2 SPRAYS IN EACH NOSTRIL TWICE A DAY FOR 3 DAYS, THEN 2 SPRAYS EACH NOSTRIL ONCE DAILY, Disp: 48 mL, Rfl: 1 ??? gabapentin (NEURONTIN) 600 MG tablet, take 1 tablet by mouth three times a day, Disp: 270 tablet, Rfl: 1 ??? gemfibrozil (LOPID) 600 MG tablet, TAKE 1 TABLET BY MOUTH TWICE A DAY BEFORE MEALS, Disp: 180 tablet, Rfl: 0 ??? glipiZIDE (GLUCOTROL) 10 MG tablet, take 1 tablet by mouth twice a day, Disp: 180 tablet, Rfl: 1 ??? magnesium oxide 250 MG tablet, Take 2 tablets (500 mg total) by mouth daily., Disp: , Rfl: ??? Multiple Vitamins-Minerals (MULTIVITAMIN ADULT, MINERALS, OR), Take 1 capsule by mouth daily., Disp: , Rfl: ??? pramipexole (MIRAPEX) 0.125 MG tablet, TAKE 2 TABLETS AT BEDTIME. MAY INCREASE TO 4 TABLETS IF NEEDED, Disp: 360 tablet, Rfl: 0 ??? traZODone (DESYREL) 50 MG tablet, TAKE 1 TABLET (50 MG TOTAL) BY MOUTH NIGHTLY AT BEDTIME, Disp: 90 tablet, Rfl: 1 ??? vitamin B-12 1000 MCG tablet, Take 1 tablet (1,000 mcg total) by mouth daily., Disp: , Rfl: ??? vitamin D3, cholecalciferol, 1000 UNIT Tab tablet, Take 1 tablet (1,000 Units total) by mouth daily., Disp: , Rfl: ??? zolpidem (AMBIEN) 5 MG tablet, TAKE 1 TABLET BY MOUTH EVERY DAY AT BEDTIME NEEDED FOR SLEEP,Disp: 30 tablet, Rfl: 0 Allergies: Allergies Allergen Reactions ??? Metformin GI Upset and Headache Other reaction(s): GI Discomfort Medical History: Past Medical History: Diagnosis Date ??? Abnormal EKG ??? BPH (benign prostatic hyperplasia) ??? Chronic kidney disease, stage III (moderate) (CMS/HCC) ??? COVID 11/26/2021 ??? Diabetes mellitus (CMS/HCC [facility]/HCC) ??? Flushing 11/15/2018 ??? Male erectile dysfunction ??? Vasovagal syncope 07/25/2017 Surgical History: Past Surgical History: Procedure Laterality Date ??? ANESTH,NECK VESSEL SURGERY NOS 10 years ago. surgery of neck ??? BACK SURGERY 07/28/2022 ??? CARPAL TUNNEL RELEASE Bilateral ??? COLONOSCOPY FLX DX W/COLLJ SPEC WHEN PFRMD 2017 ??? SPINAL FUSION,ANT,EA ADNL LEVEL 10/2023 ??? TONSILLECTOMY ??? TOTAL KNEE ARTHROPLASTY Left 10/27/2022 Social History: Social History Tobacco Use ??? Smoking status: Never ??? Smokeless tobacco: Never Vaping Use ??? Vaping status: Never Used Substance Use Topics ??? Alcohol use: Not Currently Comment: social- beer ??? Drug use: No Family History: Family History Problem Relation Name Age of Onset ??? Other (Malignant neoplasm) Mother ??? Other (Malignant neoplasm) Sister ??? Other (No family history of heart disease.) Other PE: Physical Exam Filed Vitals: 05/31/24 1258 BP: 132/79 Pulse: 60 Resp: 16 Temp: 97 ??F (36.1 ??C) TempSrc: Temporal SpO2: 99% Weight: 96.6 kg (213 lb) Height: 1.905 m (6' 3 ) Body mass index is 26.62 kg/m??. Diagnoses/Impression: 1. Type 2 diabetes mellitus without complication, with long-term current use of insulin ([facility]) CANCELED: HEMOGLOBIN, GLYCOSYLATED CANCELED: COLLECT.CAPILLARY (FNGR,HEEL,EAR) Recommendations and Plan: No orders of the defined types were placed in this encounter. There are no Patient Instructions on file for this visit. PCP: NICOLE RIVERS MD 05/31/2024 * Nicole Rivers MD - 05/31/2024 1:00 PM CDT Images from the original note were not included. Office Progress Note Reason for Visit: Elbow Pain (Right swollen elboe sx started 3-4 months ago ) History of Present Illness: Elbow Pain Associated symptoms: no back pain, no fever and no neck pain Pt states has had a right non tender elbow swelling for over 3 months unsure of the cause with no neck pain, shoulder or wrist pain, decreased range of motion or weakness, denies fever, rash, warmth,paresthesia ROS: Review of Systems Constitutional: Negative for chills and fever. Respiratory: Negative for shortness of breath. Cardiovascular: Negative for chest pain. Musculoskeletal: Negative for back pain, joint pain, myalgias and neck pain. Skin: Negative for rash. Neurological: Negative for tingling and focal weakness. Endo/Heme/Allergies: Does not bruise/bleed easily. Psychiatric/Behavioral: The patient does not have insomnia. Medications: Current Outpatient Medications: amoxicillin (AMOXIL) 500 MG capsule, Take 1 capsule (500 mg total) by mouth as needed (DENTAL USE)., Disp: , Rfl: Ascorbic Acid 100 MG Tab, Take 100 mg by mouth daily., Disp: , Rfl: buPROPion XL (WELLBUTRIN XL) 150 MG 24 hr tablet, TAKE 1 TABLET BY MOUTH EVERY DAY, Disp: 90 tablet, Rfl: 0 Continuous Glucose Foreign Exchange Services Manager (FREESTYLE LAMIN 3 READER) Device, Use to monitor blood sugars, Disp: 1each, Rfl: 0 Continuous Glucose Sensor (FREESTYLE LAMIN 3 SENSOR) Misc, APPLY TO SKIN EVERY 14 DAYS TO MONITOR BLOOD SUGARS, Disp: 6 each, Rfl: 1 cyclobenzaprine (FLEXERIL) 5 MG tablet, TAKE 1-2 TABLETS BY MOUTH AT BEDTIME NEEDED, Disp: 60 tablet, Rfl: 2 diclofenac EC (VOLTAREN) 75 MG tablet, take 1 tablet by mouth twice a day, Disp: 60 tablet, Rfl: 1 FARXIGA 10 MG tablet, TAKE 1 TABLET BY MOUTH EVERY DAY IN THE MORNING, Disp: 30 tablet, Rfl: 2 fenofibrate (TRICOR) 145 MG tablet, TAKE 1 TABLET BY MOUTH EVERY DAY, Disp: 90 tablet, Rfl: 0 ferrous sulfate, 65 mg elemental, 325 (65 FE) MG tablet, Take 1 tablet (325 mg total) by mouth daily with breakfast., Disp: 90 tablet, Rfl: 1 finasteride (PROSCAR) 5 MG tablet, TAKE 1 TABLET BY MOUTH EVERY DAY, Disp: 90 tablet, Rfl: 0 fluticasone propionate (FLONASE) 50 MCG/ACT nasal spray, USE 2 SPRAYS IN EACH NOSTRIL TWICE A DAY FOR 3 DAYS, THEN 2 SPRAYS EACH NOSTRIL ONCE DAILY, Disp: 48 mL, Rfl: 1 gabapentin (NEURONTIN) 600 MG tablet, take 1 tablet by mouth three times a day, Disp: 270 tablet, Rfl: 1 gemfibrozil (LOPID) 600 MG tablet, TAKE 1 TABLET BY MOUTH TWICE A DAY BEFORE MEALS, Disp: 180 tablet, Rfl: 0 glipiZIDE (GLUCOTROL) 10 MG tablet, take 1 tablet by mouth twice a day, Disp: 180 tablet, Rfl: 1 magnesium oxide 250 MG tablet, Take 2 tablets (500 mg total) by mouth daily., Disp: , Rfl: Multiple Vitamins-Minerals (MULTIVITAMIN ADULT, MINERALS, OR), Take 1 capsule by mouth daily., Disp: , Rfl: pramipexole (MIRAPEX) 0.125 MG tablet, TAKE 2 TABLETS AT BEDTIME. MAY INCREASE TO 4 TABLETS IF NEEDED, Disp: 360 tablet, Rfl: 0 predniSONE (DELTASONE) 20 MG tablet, Take two tablets once a day for five days, Disp: 10 tablet, Rfl: 0 traZODone (DESYREL) 50 MG tablet, TAKE 1 TABLET (50 MG TOTAL) BY MOUTH NIGHTLY AT BEDTIME, Disp: 90tablet, Rfl: 1 vitamin B-12 1000 MCG tablet, Take 1 tablet (1,000 mcg total) by mouth daily., Disp: , Rfl: vitamin D3, cholecalciferol, 1000 UNIT Tab tablet, Take 1 tablet (1,000 Units total) by mouth daily., Disp: , Rfl: zolpidem (AMBIEN) 5 MG tablet, TAKE 1 TABLET BY MOUTH EVERY DAY AT BEDTIME NEEDED FOR SLEEP, Disp: 30 tablet, Rfl: 0 Allergies: Review of patient's allergies indicates: Allergen Reactions Metformin GI Upset and Headache Other reaction(s): GI Discomfort Medical History: Past Medical History: Diagnosis Date Abnormal EKG BPH (benign prostatic hyperplasia) Chronic kidney disease, stage III (moderate) ([facility]) COVID 11/26/2021 Diabetes mellitus ([facility]) Flushing 11/15/2018 Male erectile dysfunction Vasovagal syncope 07/25/2017 Surgical History: Past Surgical History: Procedure Laterality Date ANESTH,NECK VESSEL SURGERY NOS 10 years ago. surgery of neck BACK SURGERY 07/28/2022 CARPAL TUNNEL RELEASE Bilateral COLONOSCOPY FLX DX W/COLLJ SPEC WHEN PFRMD 2018 SPINAL FUSION,ANT,EA ADNL LEVEL 10/2023 TONSILLECTOMY TOTAL KNEE ARTHROPLASTY Left 10/27/2022 Social History: Social History Tobacco Use Smoking status: Never Smokeless tobacco: Never Vaping Use Vaping status: Never Used Substance Use Topics Alcohol use: Not Currently Comment: social- beer Drug use: No Family History: Family History Problem Relation Name Age of Onset Other (Malignant neoplasm) Mother Other (Malignant neoplasm) Sister Other (No family history of heart disease.) Other PE: Physical Exam Vitals and nursing note reviewed. Constitutional: General: He is not in acute distress. HENT: Head: Normocephalic and atraumatic. Eyes: General: No scleral icterus. Conjunctiva/sclera: Conjunctivae normal. Pupils: Pupils are equal, round, and reactive to light. Neck: Vascular: No carotid bruit. Cardiovascular: Rate and Rhythm: Normal rate and regular rhythm. Pulses: Normal pulses. Pulmonary: Effort: Pulmonary effort is normal. Breath sounds: No wheezing or rales. Chest: Chest wall: No tenderness. Abdominal: General: Abdomen is flat. Musculoskeletal: General: Swelling present. No tenderness or deformity. Normal range of motion. Cervical back: Normal range of motion. Lymphadenopathy: Cervical: No cervical adenopathy. Skin: Findings: No bruising, erythema or rash. Neurological: General: No focal deficit present. Mental Status: He is alert and oriented to person, place, and time. Cranial Nerves: No cranial nerve deficit. Sensory: No sensory deficit. Psychiatric: Mood and Affect: Mood normal. Behavior: Behavior normal. Filed Vitals: 05/31/24 1258 BP: 132/79 Pulse: 60 Resp: 16 Temp: 97 ??F (36.1 ??C) TempSrc: Temporal SpO2: 99% Weight: 96.6 kg (213 lb) Height: 1.905 m (6' 3 ) Body mass index is 26.62 kg/m??. Diagnoses/Impression: 1. Olecranon bursitis of right elbow predniSONE (DELTASONE) 20 MG tablet 2. Type 2 diabetes mellitus without complication, with long-term current use of insulin ([facility]) CANCELED: HEMOGLOBIN, GLYCOSYLATED CANCELED: COLLECT.CAPILLARY (FNGR,HEEL,EAR) Recommendations and Plan: Orders Placed This Encounter predniSONE (DELTASONE) 20 MG tablet Patient Instructions 1) Right olecranon bursitis: rest, fiber picker compression sleeve and wear daily will start prednisone for five days and discussed patient education and counseling PCP: NICOLE RIVERS MD 05/31/2024 documented in this encounter Plan of Treatment Upcoming Encounters Date Type Department Care Team (Late st Contact Info) Description 06/08/2024 7:00 AM CDT Appointment [facility] [address] [place] [address] [place] [address] [place] [address] [place] [address] [place] [address] 06/12/2024 11:00 AM CDT Appointment [facility] [address] [place] [address] [place] [address] [place] [address] Albert Mcmahon MD [address] [address] 06/19/2024 10:15 AM CDT Appointment [facility] [address] [place] [address] [place] [address] [place] [address] Albert Mcmahon MD [address] [address] 06/21/2024 9:30 AM CDT Appointment [facility] [address] [place] [address] [place] [address] [place] [address] Albert Mcmahon MD [address] [address] 06/25/2024 9:45 AM CDT Appointment [facility] [address] [place] [address] [place] [address] [place] [address] Albert Mcmahon MD [address] [address] 06/28/2024 9:45 AM CDT Appointment [facility] [address] [place] [address] [place] [address] [place] [address] Albert Mcmahon MD [address] [address] 07/02/2024 9:30 AM CDT Appointment [facility] [address] [place] [address] [place] [address] [place] [address] Albert Mcmahon MD [address] [address] 07/05/2024 11:15 AM CDT Appointment [facility] [address] [place] [address] [place] [address] [place] [address] Albert Mcmahon MD [address] [address] 07/09/2024 11:15 AM CDT Appointment [facility] [address] [place] [address] [place] [address] [place] [address] Albert Mcmahon MD 3 [facility] [address] [place] [address] documented as of this encounter Visit Diagnoses Diagnosis Olecranon bursitis of right elbow- Primary Olecranon bursitis Type 2 diabetes mellitus without complication, with long-term current use of insulin ([facility]) documented in this encounter Additional Health Concerns Assessment Noted Time PHQ-9 Depression Total Score: 2 04/06/19 25 9:40 AM DIRECTOR NETWORK DEVELOPMENT documented as of this encounter Care Teams Netting Inspector Relationship Specialty [place] [address] [place] [address] PCP - General FAMILY PRACTICE 05/04/21 Jose Zazueta MD Three [facility]. [address] [place] [address] Dallas Roustabout Crew Leader CARDIOVASCULAR DISEASE 05/10/17 documented as of this encounter
--- OUTSIDE RECORDS SUMMARY | 2024-06-06 01:05 | XMS_ITS | Encounter Summary ---
Author Organization [facility] Address [address] [place] [address] Care Team Providers Care Mgmt Specialist Name Role Phone Jose Zazueta MD Unavailable [phone] Lucas Rivers MD Primary Care Provider [phone] Encounter Details Date Type Department Care Team (Late st Contact Info) Description 02/08/2023 MyChart Message Enc [facility] Family & Internal Medicine [facility] [address] [place] [address] [place] [id number] [place] [address] XR Hip Jose 2V+Pelvis on 01/18/23 Social History Tobacco Use Types Packs/Day Years Used Date Smoking Tobacco: Never Smokeless Tobacco: Never Alcohol Use Standard Drinks/Week Comments Not Currently 0 (1 standard drink = 0.6 oz pur e alcohol) social- beer PHQ-2 Answer Date Recorded Patient Health Questionnaire-2 Score 0 09/09/2022 Sex and Gender Information Value Date Recorded Sex Assigned at Male 05/07/2024 1:57 PM LAW TUTOR Legal Sex Male 7:06 PM CDT Gender Identity Not on file Sexual Orientation Not on file 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 [address] [place] [address] [place] [address] [place] [address] [place] [address] [place] [address] 06/12/2024 11:[address] [facility] [address] [place] [address] [place] [address] [place] [address] Albert Mcmahon MD [address] [address] 06/19/2024 10:[address] [facility] [address] [place] [address] [place] [address] [place] [address] Albert Mcmahon MD [address] [address] 06/21/2024 9:[address] [facility] [address] [place] [address] [place] [address] [place] [address] Albert Mcmahon MD [address] [address] 06/25/2024 9:[address] [facility] [address] [place] [address] [place] [address] [place] [address] Albert Mcmahon MD [address] [address] 06/28/2024 9:[address] [facility] [address] [place] [address] [place] [address] [place] [address] Albert Mcmahon MD [address] [address] 07/02/2024 9:[address] [facility] [address] [place] [address] [place] [address] [place] [address] Albert Mcmahon MD [address] [address] 07/05/2024 11:[address] [facility] [address] [place] [address] [place] [address] [place] [address] Albert Mcmahon MD 3 [facility] [address] [place] [address] 07/09/2024 11:[address] [facility] [address] [place] [address] [place] [address] [place] [address] Albert Mcmahon MD 3 [facility] [address] [place], [place] [address] documented as of this encounter Visit Diagnoses Not on filedocumented in this encounter Additional Health Concerns Assessment Noted Time PHQ-9 Depression Total Score: 0 06/16/19 7:14 AM CDT documented as of this encounter Care Teams Mgmt Specialist Relationship Specialty [place] [address] [place] [address] PCP - General FAMILY PRACTICE 05/04/21 Jose Zazueta MD Three [facility]. [facility] [address] [place] [address] Divide Public Health Assistant CARDIOVASCULAR DISEASE 05/10/17 documented as of this encounter
--- OUTSIDE RECORDS SUMMARY | 2024-06-06 01:05 | XMS_ITS | Encounter Summary ---
Author Organization [facility] Address [address] [place] [address] Care Team Providers Care Mechanical And Auto Body Car Checker Name Role Phone Jose Zazueta MD Unavailable [phone] Lucas Rivers MD Primary Care Provider [phone] Encounter Details Date Type Department Care Team (Latest Contact Info) Description 06/05/2024 Travel Social History Tobacco Use Types Packs/Day Years Used Date Smoking Tobacco: Never Smokeless Tobacco: Never Alcohol Use Standard Drinks/Week Comments Not Currently 0 (1 standard drink = 0.6 oz pur e alcohol) social- beer PHQ-2 Answer Date Recorded Patient Health Questionnaire-2 Score 0 04/06/2024 Sex and Gender Information Value Date Recorded Sex Assigned at Male 05/07/2024 1:57 PM EDDY CURRENT INSPECTOR Legal Sex Male 7:06 PM CDT Gender Identity Not on file Sexual Orientation Not on file 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 [address], [place] [id number] [place] [address] [place] [address] [place] [address] [place] [address] 06/12/2024 11:[address] [facility] [address] [place] [address] [place] [address] [place] [address] Albert Mcmahon MD [address] [address] 06/19/2024 10:[address] [facility] [address] [place] [address] [place] [address] [place] [address] Albert Mcmahon MD [address] [address] 06/21/2024 9:[address] [facility] [address] [place] [address] [place] [address] [place] [address] Albert Mcmahon MD [address] [address] 06/25/2024 9:[address] [facility] [address] [place] [address] [place] [address] [place] [address] Albert Mcmahon MD [address] [address] 06/28/2024 9:[address] [facility] [address] [place] [address] [place] [address] [place] [address] Albert Mcmahon MD [address] [address] 07/02/2024 9:[address] [facility] [address] [place] [address] [place] [address] [place] [address] Albert Mcmahon MD [address] [address] 07/05/2024 11:[address] [facility] [address] [place] [address] [place] [address] [place] [address] Albert Mcmahon MD [address] [address] 07/09/2024 11:[address] [facility] [address] [place] [address] [place] [address] [place] [address] Albert Mcmahon MD 3 [facility] [address] [place] [address] documented as of this encounter Visit Diagnoses Not on filedocumented in this encounter Additional Health Concerns Assessment Noted Time PHQ-9 Depression Total Score: 2 04/06/19 25 9:40 AM EDDY CURRENT INSPECTOR documented as of this encounter Care Teams Mechanical And Auto Body Car Checker Relationship Specialty [place] [address] [place] [address] PCP - General FAMILY PRACTICE 05/04/21 Jose Zazueta MD Three [facility]. [address] [place] [address] Albert Mud Analysis Well Logging Captain CARDIOVASCULAR DISEASE 05/10/17 documented as of this encounter
--- OUTSIDE RECORDS SUMMARY | 2024-06-06 01:05 | XMS_ITS | Encounter Summary ---
Author Organization [facility] Address [address] [place] [address] Care Team Providers Care Java Software Developer Name Role Phone Kris Godinez MD Unavailable [phone] Kris Godinez MD Unavailable [phone] Salo Kelly MD Primary Care Provider [phone] Encounter Details Date Type Department Care Team (Late st Contact Info) Description 01/17/2020 Lab Requisition [facility] Derm[facility] Lab [address] [place] [address] Matt Livingtson MD [address] [place] [address] Social History Tobacco Use Types Packs/Day Years Used Date Smoking Tobacco: Unknown Alcohol Use Standard Drinks/Week Comments Not Asked 0 (1 standard drink = 0.6 oz pur e alcohol) Sex and Gender Information Value Date Recorded Sex Assigned at Not on file Gender Identity Not on file Sexual Orientation Not on file documented as of this encounter Plan of Treatment Not on file documented as of this encounter Procedures Procedure Name Priority Date/Time Associated Diagnosis Comments DERMATOPATHOLOGY Routine 01/16/2020 12:0 0 AM CDT documented in this encounter Results * DERMATOPATHOLOGY (01/16/2020 12:00 AM CDT) Case Report Dermatopathology Report Case: [id number] Authorizing Provider: Matt Livingston MD Collected: 01/16/2020 12:00 AM Ordering Location: [facility] Derm[facility] Lab Received: 01/17/2020 06:23 AM Pathologist: Melody Mckeon MD Specimen: Skin, mid upper back 0 2:07 PM CDT DERMATOPATHOLOGY LABORATORY Final Diagnosis Specimen A. SKIN, mid upper back: EPIDERMOID CYST (L72.0) 0 2:07 PM CDT DERMATOPATHOLOGY LABORATORY Clinical History Cyst. Path # [id number]. 0 2:07 PM CDT DERMATOPATHOLOGY LABORATORY Gross Description Specimen A: Received is one formalin filled container labeled with the patient's name and designated mid upper back. The specimen consists of a [id number] excision. The specimen is serially sectioned and a sales representative church furniture section is submitted in cassette 1. Jar 1. 0 2:07 PM CDT DERMATOPATHOLOGY LABORATORY Microscopic Description Specimen A. SKIN, mid upper back: Within the dermis, there is a space lined by epithelium that resembles normal epidermis and the infundibular portion of the hair follicle. 0 2:07 PM CDT DERMATOPATHOLOGY LABORATORY Disclaimer An external and internal positive and negative controls are appropriate for the histochemical, immunohistochemical and immunofluorescence stain(s) in this case (if any), except where stated explicitly. The performance characteristics of the stain(s) cited in this report were developed and its performance characteristic determined by the Dermatopathology Laboratory at [facility], directed by Dr. Paul Pisano. These tests need not be, and therefore are not, approved by the [place] Food and Drug Administration. The tests are used for clinical purposes. Billing Codes Specimen Charges Stain Charges 29211 1 0 2:07 PM CDT DERMATOPATHOLOGY LABORATORY Embedded Images 0 2:07 PM CDT DERMATOPATHOLOGY LABORATORY Pathology/Cytolog y TISSUE SPECIMEN FROM SKIN / Unknown 01/16/2020 01/17/2020 6:23 AM CDT Matt Livingston MD LAB - PATHOLOGY/CYTO LOGY ORDERABLES DERMATOPATHOLOGY LABORATORY [facility] - Department of Dermatology [address], [address] [phone] documented in this encounter Visit Diagnoses Not on filedocumented in this encounter Care Teams Java Software Developer Relationship Specialty Start Date End Date Salo Kelly MD [address] [place] [id number] PCP - General Internal Medicine 01/17/20 [place] [id number] [place] [id number] Orthopedic Surgery 02/08/13 [place] [address] [place] [address] [id number] Orthopedic Surgery 09/27/19 documented as of this encounter
--- OUTSIDE RECORDS SUMMARY | 2024-06-06 01:05 | XMS_ITS | Clinical Summary ---
Author Organization [facility] Address [address] [place] [address] Care Team Providers Care Triage Rn Name Role Phone Miscellaneous, Not In File Primary Care Provider Unavailable Manuel Chu MD Unavailable [phone] Allergies Active Allergy Reactions Criticality Noted Date [...] 02/08/2013 Overview (08/25/2021): 2015 IMO Updt [facility] Benign prostatic hyperplasia 11/15/2012 Overview (08/25/2021): Last Assessment & Plan: Stable on current dosing of finasteride. No treatment change. Mild episode of recurrent major depressive disor sandra 11/12/2011 Overview (08/25/2021): Last Assessment & Plan: Continues on bupropion daily with good effects. No treatment change. Surgical History Surgery Date Site/Laterality Comments CARPAL TUNNEL RELEASE BACK SURGERY july 28, melva placed in lower back with cage NECK SURGERY Medical History Medical History Date Comments Hx Other Medical recurrent sycno pe/vasovagal syncope Hx Other Medical Diabetes Type I I Hx Other Medical Arrhythmias abdirashid ef atrial tachycardia Peripheral neuropathy Diabetes mellitus (HCC) Type 2 diabetes mellitus (HCC) Family History Medical History Relation Name Comments Dementia Father Dementia; Cause of : Dementia Breast cancer Mother Cancer, breast ; Cause of : Cancer, breast Cancer Mother Breast cancer Sister 3 Cancer, breast ; Cause of : Cancer, breast Brain cancer Sister 4 Brain tumor; Ca use of : Brain tumor Relation Name Status Comments Father (Age 88) Mother (Age 75) Sister 1 (Age 41) Sister 2 Sister 3 Sister 4 Social History Tobacco Use Types Packs/Day Years [...] on file 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 Gender Identity Not on file Sexual Orientation Not on file Obstetrics History Last Filed Vital Signs Vital Sign Reading [...] 12/09/2022 8:24 AM CDT Plan of Treatment Health Maintenance Due Date Last Done Comments Albumin Creatinine Ratio, Urine 1948 Depression Screening 1948 Hemoglobin A1C 1948 Hepatitis C Screening 1948 Dilated Eye Exam 1948 Foot Exam 1948 Lipid Panel 1948 Hepatitis B Screening 1966 Well Visit 65+ 2013 Fall Risk Assessment 10/29/2023 10/28/2022 eGFR 10/29/2023 10/28/2022 Covid-19 Vaccine (4 - 2023-2 5 season) 2023 01/16/2021, 06/06/2020, 05/16/2020 Influenza Vaccine (#1) 2023 , 12/14/2019, 01/23/2019, Additional history exists DTaP/Tdap/Td Vaccine (3 - Td or Tdap) 09/19/2031 09/18/2021, 11/12/2011 Pneumococcal vaccine 65+ Completed 12/01/2016, 12/19 Zoster Vaccine Completed 07/14/2020, 02/25/2020 Medical Devices Implanted Type Area Maintenance Scheduler Device Identifier Shelf Expiration Date Model / Serial / Lot [employer] Component Femoral Knee Porous Posterior Stabilized Left Attune Size 8 [employer] [id number] - Sna - [id number] Implanted:Qty: 1 on 10/27/2022 by Manuel Chu MD at [facility] Left: Knee [employer] [id number] 08/18/2030 [id number] / NA / [id number] [employer] Attune Fb Tib Base Sz 10 Por [id number] - [id number] Implanted:Qty: 1 on 10/27/2022 by Manuel Chu MD at [facility] Left: Knee [employer] [id number] 06/18/2032 [id number] / / [id number] [employer] Attune 7mm Posterior Stabilize Fix Bearing Knee 8 Insert Tibial [id number] - [id number] Implanted:Qty: 1 on 10/27/2022 by Manuel Chu MD at [facility] Left: Knee [employer] [id number] 02/17/2027 [id number] / / [id number] Procedures Procedure Name Priority Date/Time Associated Diagnosis Comments EGFR Routine 10/28/2022 3:49 AM CDT from Last 3 Months or Most Recently Relevant to Health Maintenance Results * eGFR (10/28/2022 3:49 AM CDT) eGFR 58 mL/min/1. 73 m2 [facility] ([place]) Comment: Interpretive Data Reference Interval Normal >/= [...] 3:49 AM CDT 10/28/2022 4:22 AM CDT Ana [facility]AR[facility] LAB BLOOD ORDERABLES Final Result [facility] ([place]) [address] [facility] [place] [address] from Last 3 Months or Most Recently Relevant to Health Maintenance Insurance [facility] MED[facility]ARE [facility] MED[facility] Advance Directives For more information, please contact: [phone] * Full Code (Latest Code Status on File) Date Activated Date Inactivated Comments 10/27/2022 12:08 PM 10/28/2022 3:37 PM Care Teams Triage Rn Relationship Specialty Start Date End Date Miscellaneous, Not In File PCP - General 10/14/22 Manuel Chu MD [address] [place] [address] [address] [place] [address] Surgeon Orthopedic Surgery 10/28/22
[2024-06-06 08:03] VITALS: BP 143/74; PULSE 71; RESP 16; TEMP 36; O2SAT 98
[2024-06-06] MEDS: LACTATED RINGERS 1,000 ML 150 ML IV CONT (08:22)
[2024-06-06 08:24] LABS: Glucose Point of Care 206 mg/dl (65-105)
--- NOTE | 2024-06-06 08:45 | P.PNAN_ITS ---
Anes - Initial Pre Proc Eval Procedure: Operation Date: 06/06/24 09:15 Proposed Procedures p Colonoscopy - Iam Aquino MD Date/Time: 06/06/24 08:45 Surgeon: Iam Aquino MD Pre Op Diagnosis: Mass Patient Data Age: 74 Gender: M Height: 1.91 m Weight: 91.6 kg Last Vital Signs Temp 96.8 F L 06/06/24 08:03 Pulse 71 06/06/24 08:03 Resp 16 06/06/24 08:03 BP 143/74 H 06/06/24 08:03 Pulse Ox 98 06/06/24 08:03 O2 Del Method Room Air 06/06/24 08:03 Allergies Allergy/AdvReac Type Severity Reaction Status Date / Time metformin Allergy Mild Headache Verified 06/06/24 08:02 Home Medications ?Medication ?Instructions ?Recorded ?Confirmed ?Type bupropion HCl 150 mg 24 hr tablet, 150 mg PO QAM 12/26/23 06/06/24 History extended release dapagliflozin propanediol 10 mg 10 mg PO DAILY 12/26/23 06/06/24 History tablet (Farxiga) fenofibrate nanocrystallized 145 145 mg PO DAILY 12/26/23 06/06/24 History mg tablet finasteride 5 mg tablet 5 mg PO DAILY 12/26/23 06/06/24 History gemfibrozil 600 mg tablet 600 mg PO BID 12/26/23 06/06/24 History glipizide 10 mg tablet 10 mg PO BID 12/26/23 06/06/24 History Laboratory Tests 06/06/24 08:20 POC Capillary Glucose 206 H mg/dl (65-105) Patient hx anesthesia problems: none Family hx anesthesia problems: none Results Review: All pre-operative results and documents have been reviewed as part of the pre- operative evaluation. 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, managed as type 2 Social History Social History Smoking status: Never smoker Alcohol intake: never Substance use type: does not use Living arrangements: with family Spiritual care concerns: No Anes - Eval Final PreProcedure Day of Procedure 06/06/24 08:45 Patient weight: normal Heart: regular rate and rhythm Lungs: clear to auscultation Airway: Mallampati scale class II Neurological: alert and oriented Last oral intake: >/= 8 hours ASA classification: II Emergent: no Anesthetic plan: proceed Anesthesia type and monitoring: general GIVS and standard monitoring Results Review: All pre-operative results and documents have been reviewed as part of the pre- operative evaluation. Informed Consent: The patient's anesthetic plan and its attendant risks and benefits were d iscussed with the patient/family/POA. Questions were solicited and answers provided to the satisfaction of the patient/family/POA.
--- NOTE | 2024-06-06 09:08 | PM.IMHP ---
H&P: HPI History of Present Illness Date/Time: 06/06/24 09:08 Chief Complaint: Screening colonoscopy Narrative: This is the patient's 2nd colonoscopy after approximately 9 years. There are no GI symptoms and there is no family history of colorectal cancer. 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, managed as type 2 Social History Social History Smoking status: Never smoker Alcohol intake: never Substance use type: does not use Living arrangements: with family Spiritual care concerns: No Meds Home Medications and Allergies Home Medications ?Medication ?Instructions ?Recorded ?Confirmed ?Type bupropion HCl 150 mg 24 hr tablet, 150 mg PO QAM 12/26/23 06/06/24 History extended release dapagliflozin propanediol 10 mg 10 mg PO DAILY 12/26/23 06/06/24 History tablet (Farxiga) fenofibrate nanocrystallized 145 145 mg PO DAILY 12/26/23 06/06/24 History mg tablet finasteride 5 mg tablet 5 mg PO DAILY 12/26/23 06/06/24 History gemfibrozil 600 mg tablet 600 mg PO BID 12/26/23 06/06/24 History glipizide 10 mg tablet 10 mg PO BID 12/26/23 06/06/24 History Allergies Allergy/AdvReac Type Severity Reaction Status Date / Time metformin Allergy Mild Headache Verified 06/06/24 08:02 Vital Signs Vital Signs - 24 hr 06/06/24 08:03 Temperature 96.8 F L Pulse Rate 71 Respiratory Rate 16 Blood Pressure 143/74 H Pulse Oximetry 98 Oxygen Delivery Room Air Exam Const: General: cooperative and healthy appearing Resp: Effort & Inspection: normal respiratory effort and able to speak in complete sentences Auscultation: clear to auscultation bilaterally Cardio: Rate: regular rate Rhythm: regular rhythm GI: Inspection: normal to inspection GI Palp: No No hepatosplenomegaly present Auscultation: normal bowel sounds Rectal Exam: deferred Skin: General skin exam: normal color Psych: Appearance: grossly normal Mental Status: mental status grossly normal Assessment and Plan Assessment and plan (1) Encounter for screening colonoscopy: Code(s): Z12.11 - Encounter for screening for malignant neoplasm of colon Status: Acute Assessment and Plan: The patient is deemed a good candidate for the procedure. Consent signed. Will proceed.
[2024-06-06 09:36] VITALS: BP 110/71; PULSE 57; RESP 16; O2SAT 97
--- NOTE | 2024-06-06 09:38 | P.HP_ITS ---
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, managed as type 2 Social History Social History Smoking status: Never smoker Alcohol intake: never Substance use type: does not use Living arrangements: with family Spiritual care concerns: No Meds Home Medications and Allergies Home Medications ?Medication ?Instructions ?Recorded ?Confirmed ?Type bupropion HCl 150 mg 24 hr tablet, 150 mg PO QAM 12/26/23 06/06/24 History extended release dapagliflozin propanediol 10 mg 10 mg PO DAILY 12/26/23 06/06/24 History tablet (Farxiga) fenofibrate nanocrystallized 145 145 mg PO DAILY 12/26/23 06/06/24 History mg tablet finasteride 5 mg tablet 5 mg PO DAILY 12/26/23 06/06/24 History gemfibrozil 600 mg tablet 600 mg PO BID 12/26/23 06/06/24 History glipizide 10 mg tablet 10 mg PO BID 12/26/23 06/06/24 History Allergies Allergy/AdvReac Type Severity Reaction Status Date / Time metformin Allergy Mild Headache Verified 06/06/24 08:02 Vital Signs Vital Signs - 24 hr 06/06/24 08:03 Temperature 96.8 F L Pulse Rate 71 Respiratory Rate 16 Blood Pressure 143/74 H Pulse Oximetry 98 Oxygen Delivery Room Air
[2024-06-06 09:46] VITALS: BP 118/71; PULSE 57; RESP 16; O2SAT 96
[2024-06-06 09:56] VITALS: BP 123/81; PULSE 60; RESP 17; O2SAT 96
== END 2024-06-06 10:11 | disposition home or self-care (01) ==
PROVIDERS: PCP Family Medicine; Referring Provider Nurse Practitioner Family; Visit Provider Internal Medicine Gastroenterology
PROC: 0DJD8ZZ Inspection of Lower Intestinal Tract, Via Natural or Artificial Opening Endoscopic (ICD-10-PCS; CPT 45378; principal; 2024-06-06 09:15)
DX: Z12.11 Encounter for screening for malignant neoplasm of colon (principal); E11.9 Type 2 diabetes mellitus without complications; Z79.84 Long term (current) use of oral hypoglycemic drugs
CPT/HCPCS: G0121; 82948; J2003; J2704; J7120